=== PATIENT | female | born 1985 | race Caucasian/White ===

== ENCOUNTER 2017-04-21 13:57 | Emergency (ER) | payer OTHER ==
[2017-04-21 14:49] VITALS: BP 104/66
--- NOTE | 2017-04-21 14:59 | UC ---
Complaint Female HPI - HPI Summary HPI Summary: 32 female presents with complaints of urinary burning frequency and urgency that has been going on for the past week. States she took some OTC Azo yesterday which did give her some relief until it wore off. Patient denies having any blood in her urine. Denies vaginal symptoms/discharge. Denies known fever/chills. Also complains of lower abdominal pain and kidney/back pain. Was told by her PCP to be seen and have urine checked to obtain medication. Denies known PMHx. Has also been taking hydrocodone that she states is for her chronic back pain that gives her some relief. Admits to nausea/vomiting one week ago however she has episode of these chronically. No episodes within the last 2 days and has been eating and drinking. - History Of Current Complaint Chief Complaint: UCGU Stated Complaint: URINARY COMPLAINT Time Seen by Provider: 04/21/17 14:55 Hx Obtained From: Patient Hx Last Menstrual Period: 03/30/17 ?: No Onset/Duration: Sudden Onset, Lasting Weeks - 1, Still Present, Worse Since Timing: Constant Severity Initially: Mild Severity Currently: Moderate Pain Intensity: 1 Pain Scale Used: 0-10 Numeric Character: Burning Aggravating Factor(s): Urination Alleviating Factor(s): Meds - azo Associated Signs And Symptoms: Positive: Back Pain. Negative: Fever, Vaginal Bleeding/Discharge, Vaginal Discharge - Allergies/Home Medications Allergies/Adverse Reactions: Allergies Allergy/AdvReac Type Severity Reaction Status Date / Time Lorazepam AdvReac Intermediate See Comment Verified 04/21/17 14:49 Amoxicillin AdvReac See Comment Verified 04/21/17 14:49 Escitalopram [From Lexapro] AdvReac See Comment Verified 04/21/17 14:49 PMH/Surg Hx/FS Hx/Imm Hx - Additional Past Medical History Additional PMH: denies diabetes, htn and asthma. no pmhx. Other History Of: Negative For: HIV, Hepatitis B, Hepatitis C - Surgical History Surgical History: Yes Surgery Procedure, Year, and Place: bx heart age 14 - Family History Known Family History: Positive: None - Social History Alcohol Use: Occasionally Alcohol Amount: RECOVERING ALCOHOLIC Substance Use Type: None, Marijuana Substance Use Comment - Amount & Last Used: RECOVERING DRUG USER- uses pot several times per week Smoking Status (MU): Heavy Every Day Tobacco Smoker Type: Cigarettes Amount Used/How Often: 1 PPD Length of Time of Smoking/Using Tobacco: started at age 17 Have You Smoked in the Last Year: Yes Household Exposure Type: Cigarettes Review of Systems Constitutional: Negative Skin: Negative Respiratory: Negative Cardiovascular: Negative Gastrointestinal: Abdominal Pain, Vomiting - resolved, Nausea - chronic Genitourinary: Dysuria, Frequency, Urgency, Other - back pain Neurovascular: Negative Musculoskeletal: Negative All Other Systems Reviewed And Are Negative: Yes Physical Exam Triage Information Reviewed: Yes Appearance: Well-Appearing, No Pain Distress, Well-Nourished Vital Signs: Initial Vital Signs Temp 98 F 04/21/17 14:40 Pulse 79 04/21/17 14:40 Resp 14 04/21/17 14:40 BP 104/66 04/21/17 14:40 Pulse Ox 98 04/21/17 14:40 normal vitals, afebrile Vital Signs Reviewed: Yes Eyes: Positive: Conjunctiva Clear Neck: Positive: Supple, Nontender, No Lymphadenopathy Respiratory: Positive: Chest non-tender, Lungs clear, Normal breath sounds, No respiratory distress, No accessory muscle use. Negative: Crackles, Stridor, Wheezing Cardiovascular: Positive: RRR, No Murmur, Pulses Normal Abdomen Description: Positive: No Organomegaly, Soft, CVA Tenderness (R), CVA Tenderness (L), Other: - mild tenderness over suprapubic area/bladder with palpation. Negative: Bruit, Distended, Guarding, Peritoneal Signs, Pulsatile Mass Bowel Sounds: Positive: Present Musculoskeletal: Positive: Strength Intact, ROM Intact, No Edema Neurological Exam: Normal Neurological: Positive: Alert Psychological Exam: Normal Skin Exam: Normal Complaint Female Dx - Course Course Of Treatment: due to patients complaint of symptoms, length of symptoms, urinalysis results and vital signs will be given cipro for 7 days incase of possible pyelonephritis/ complicated uti. urine will be culture, pending results may change antibiotic if needed. no concern for , STDs or other gu etiologies. Educated for a long period of time on worsening symptoms and if no improvement go to ER for further work up and treatment. Given pyridium for discomfort. Follow up PCP. Fluids and rest. - Differential Dx/Diagnosis Differential Diagnosis/HQI/PQRI: Urinary Tract Infection, Other - pyelonephritis Provider Diagnoses: urinary tract infection Discharge - Discharge Plan Condition: Stable Disposition: HOME Prescriptions: Ciprofloxacin TAB* [Cipro 500 MG TAB*] 500 mg PO BID #14 tab Phenazopyridine TAB* [Pyridium 100 mg TAB*] 100 mg PO TID #6 tab Patient Education Materials: Urinary Tract Infection in Women (ED) Referrals: Morro MICHAUD,Ellis Andrew [Primary Care Provider] - Additional Instructions: Take prescribed medications as directed. Drink plenty of fluids and get plenty of rest. Tylenol/Ibuprofen for pain and discomfort. Keep good hygiene. Follow up with PCP. If symptoms worsen (fever, chills, generalized feeling of illness, vomiting, worsening pain, and no improvement of symptoms) please go to ER immediately.
== END 2017-04-21 15:23 | disposition home or self-care (01) ==
LOC: UCCORT 13:57
DX: N39.0 Urinary tract infection, site not specified (principal); Z88.1 Allergy status to other antibiotic agents; F12.90 Cannabis use, unspecified, uncomplicated; F17.210 Nicotine dependence, cigarettes, uncomplicated
CPT/HCPCS: 81003; 87077; 87086; 87186; 99212; G0463

== ENCOUNTER 2017-04-25 14:51 | Emergency (ER) | payer OTHER ==
[2017-04-25 15:04] VITALS: BP 113/60
--- NOTE | 2017-04-25 15:13 | UC ---
Complaint Female HPI - HPI Summary HPI Summary: Seen here 04/21/17 for UTI, continues to have urinary pain and back pain. She has been taking cipro, which cx show sensitivity to. Note reviewed which states to go to ER if sx increase/worsen. UTI sx are much improved , but LBP has not resolved. She reports that there was concern about pylonephritis and possible need for admission, but went home with cipro. Back was very tender with exam she reports. Denies fevers and chills. no hematuria. Denies . She is here with her Kary - History Of Current Complaint Chief Complaint: UCGU Stated Complaint: BACK/SIDE PAIN Time Seen by Provider: 04/25/17 14:58 Hx Last Menstrual Period: 03/30/17 - Allergies/Home Medications Allergies/Adverse Reactions: Allergies Allergy/AdvReac Type Severity Reaction Status Date / Time Lorazepam AdvReac Intermediate See Comment Verified 04/25/17 15:02 Amoxicillin AdvReac See Comment Verified 04/25/17 15:02 Escitalopram [From Lexapro] AdvReac See Comment Verified 04/25/17 15:02 PMH/Surg Hx/FS Hx/Imm Hx Previously Healthy: Yes Other History Of: Negative For: HIV, Hepatitis B, Hepatitis C - Surgical History Surgical History: Yes Surgery Procedure, Year, and Place: bx heart age 14 - Family History Known Family History: Positive: None, Cardiac Disease - Dad and PGF - Social History Alcohol Use: Occasionally Alcohol Amount: RECOVERING ALCOHOLIC Substance Use Type: None, Marijuana Substance Use Comment - Amount & Last Used: RECOVERING DRUG USER- uses pot several times per week Smoking Status (MU): Heavy Every Day Tobacco Smoker Type: Cigarettes Amount Used/How Often: 1 PPD Length of Time of Smoking/Using Tobacco: started at age 17 Have You Smoked in the Last Year: Yes Household Exposure Type: Cigarettes Review of Systems Constitutional: Negative Skin: Negative Eyes: Negative ENT: Negative Respiratory: Negative Cardiovascular: Negative Gastrointestinal: Negative Genitourinary: Dysuria Motor: Negative Neurovascular: Negative Musculoskeletal: Negative Neurological: Negative Psychological: Negative All Other Systems Reviewed And Are Negative: Yes Physical Exam Triage Information Reviewed: Yes Appearance: Ill-Appearing - mild ill. Vital Signs: Initial Vital Signs Temp 97.2 F 04/25/17 14:59 Pulse 89 04/25/17 14:59 Resp 18 04/25/17 14:59 BP 113/60 04/25/17 14:59 Pulse Ox 99 04/25/17 14:59 Vital Signs Reviewed: Yes Eye Exam: Normal ENT Exam: Normal Neck exam: Normal Neck: Positive: Supple, Nontender, No Lymphadenopathy Respiratory Exam: Normal Respiratory: Positive: Lungs clear, Normal breath sounds, No respiratory distress, No accessory muscle use Cardiovascular Exam: Normal Cardiovascular: Positive: RRR, No Murmur, Pulses Normal, Brisk Capillary Refill Abdomen Description: Positive: Nontender, No Organomegaly, Soft, CVA Tenderness (R), CVA Tenderness (L). Negative: Distended, Guarding, McBurney's Point Tenderness, Peritoneal Signs Bowel Sounds: Positive: Present Musculoskeletal Exam: Normal Neurological Exam: Normal Psychological Exam: Normal Skin Exam: Normal Complaint Female Dx - Course Course Of Treatment: pt on day 4 of cipro for UTI (+ sensitivity) with persistant b/l low back pain. chronic LBP for which she takes a controlled substance. Advised needs imaging, CT, that is NA and labwork that cannot be done in timely fashion here. ER evaluation is recommended. She and her Kary are agreeable with ER. She prefers to go to [place] [facility] by private car and declines ambulance understanding risks of MVA and worsening condition by declining. - Differential Dx/Diagnosis Differential Diagnosis/HQI/PQRI: Ovarian Cyst, Pelvic Inflammatory Disease, Renal Colic, Urinary Tract Infection Provider Diagnoses: complicated UTI - Physician Notifications Discussed Patient Care With: Servando Chavira, MERCED Orr. Discharge - Discharge Plan Condition: Fair Disposition: AGAINST MEDICAL ADVICE Referrals: Morro MICHAUD,Ellis Andrew [Primary Care Provider] - 1 Day
== END 2017-04-25 15:30 | disposition left against medical advice (07) ==
LOC: UCCORT 14:51
DX: N39.0 Urinary tract infection, site not specified (principal); F17.210 Nicotine dependence, cigarettes, uncomplicated; Z88.0 Allergy status to penicillin
CPT/HCPCS: 81003; 99212; G0463

== ENCOUNTER → 2017-04-27 06:53 | Emergency (ER) | payer OTHER ==
[~2017-04-27 06:53] MED LIST: Ketorolac INJ* 30 MG/ML 1 ML VIAL IM ONE
[2017-04-27 09:12] LABS: Hematocrit 40 % (35-47); Hemoglobin 14.2 g/dl (12.0-16.0); Mean Corpuscular HGB Conc 35 g/dl (31-36); Mean Corpuscular Hemoglobin 33 pg (27-31); Mean Corpuscular Volume 93 fL (80-97); Mean Platelet Volume 8 um3 (7.4-10.4); Red Blood Count 4.34 10^6/ul (4.0-5.4); Red Cell Distribution Width 13 % (10.5-15); White Blood Count 8.2 10^3/ul (3.5-10.8)
[2017-04-27 09:27] LABS: Urine Bilirubin 1+ (Negative); Urine Glucose Negative (Negative); Urine Nitrite Negative (Negative)
[2017-04-27 09:30] LABS: Albumin 4.2 g/dL (3.2-5.2); BUN/Creatinine Ratio 10.8 (8-20); C Reactive Protein 3.96 mg/L (< 5.00); Calcium 9.4 mg/dL (8.6-10.3); EGFR African American 137.6 (>60); Globulin 3.4 g/dL (2-4); Potassium 3.4 mmol/L (3.5-5.0); Total Bilirubin 0.4 mg/dL (0.2-1.0); Total Protein 7.6 g/dL (6.4-8.9)
[2017-04-27 10:27] LABS: Benzodiazepine Urine Screen Presumptive Positive (None Detect)
--- NOTE | 2017-04-27 12:08 | RAD ---
HISTORY: Flank pain COMPARISONS: MRI dated May 18, 2012 TECHNIQUE: Multiple contiguous axial CT scans were obtained of the lumbar spine without intravenous contrast, with coronal and sagittal multiplanar reformations. FINDINGS: SPINAL CANAL: Evaluation of the central canal is limited on CT technique; however, there is no obvious canalicular mass or epidural hemorrhage. ALIGNMENT: The alignment is normal. VERTEBRAL BODIES: The vertebral bodies are preserved in height. The bones are normal in attenuation. JOINTS: Unremarkable. There is no subluxation or dislocation. MUSCULATURE: Unremarkable INTERVERTEBRAL DISCS: There is mild diffuse loss of intervertebral disc height throughout the spine. AXIAL IMAGES: T12-L1: There is no osseous neural foraminal narrowing or central canal stenosis. L1-L2: There is no osseous neural foraminal narrowing or central canal stenosis. L2-L3: There is no osseous neural foraminal narrowing or central canal stenosis. L3-L4: There is no osseous neural foraminal narrowing or central canal stenosis. L4-L5: There is no osseous neural foraminal narrowing or central canal stenosis. L5-S1: There is no osseous neural foraminal narrowing or central canal stenosis. SOFT TISSUES: The visualized soft tissues of the abdomen are unremarkable. OTHER: None IMPRESSION: MILD DEGENERATIVE DISC DISEASE. NO SIGNIFICANT OSSEOUS NEURAL FORAMINAL NARROWING OR CENTRAL CANAL STENOSIS.
--- NOTE | 2017-04-27 12:23 | RAD ---
INDICATION: Abdominal pain COMPARISON: MRI lumbar spine May 18, 2012 TECHNIQUE: Noncontrast axial source images were acquired from the level hemidiaphragms to the symphysis pubis as part of CT imaging for renal stone. Lung bases: There is mild pleural reactive change in left lung base most consistent with minimal scarring. Liver: The liver is generous in size size. Noncontrast imaging shows no evidence of a hepatic mass or ductal dilatation. Gallbladder: There are no calcified gallstones. There is no evidence of wall thickening or pericholecystic fluid.. Spleen: The spleen is normal in size. The noncontrast CT appearance is normal. Pancreas: Noncontrast imaging shows no pancreatic mass or ductal dilitation. Adrenal glands: No masses are identified. Kidneys/Bladder: There is no evidence of nephrolithiasis or CT evidence of hydronephrosis. Noncontrast imaging shows no evidence of a renal mass. The bladder is unremarkable.. Adenopathy: There is no evidence of intraperitoneal or retroperitoneal adenopathy. Evaluation is limited without oral contrast. Fluid collections: There is a small amount of free fluid in the dependent portion of the pelvis. Vessels: The aorta and iliac vessels are normal in caliber. There are no significant atherosclerotic changes. The IVC appears normal Pelvic organs: The uterus and adnexa appear normal GI tract: Evaluation of the bowel is limited without oral contrast. The stomach and small bowel appear normal. There is moderate retained stool throughout the colon. There are scattered diverticula of the sigmoid colon. There is no CT evidence of acute diverticulitis. The ileocecal valve and appendix appear normal. Soft tissues: No soft tissue abnormalities of the extraperitoneal abdomen or pelvis are identified. Osseous structures: There are no acute osseous findings. There is degenerative disc disease about L1-L2. There are endplate irregularities at the thoracolumbar junction. Please refer to separate CT lumbar report IMPRESSION: 1. No CT evidence of urolithiasis. No mass or inflammatory change. 2. Scattered diverticula without CT evidence of acute diverticulitis. Moderate retained stool. 3. Scant free fluid in the dependent portion of the pelvis, likely physiologic free fluid
[2017-04-27 13:23] VITALS: BP 109/57
--- NOTE | 2017-04-27 15:19 | ED ---
Poli Flores Thomas, scribed for Cody Carbajal MD on 04/27/17 at 0719 . Abdominal Pain/Female - HPI Summary HPI Summary: Pt is a 32 y/o F presenting to the ED c/o flank pain. She rates her pain 9/10 in intensity. Additionally c/o syncope with LOC, seizure-like activity (per her friend) during which her friend says that she stopped breathing. The pt states that it hurts to move. Six days ago, the pt was diagnosed with a UTI and possible kidney infection at an Urgent Care, where she was given Ciprofloxacin for 7 days and 2 days of Pyridium. Currently she has flank pain and went back to the urgent care yesterday, where an US and UA were performed with no findings of UTI or kidney infection. The urgent care diagnosed the pt with muscle spasms. The pt claims that her pain is not consistent with prior episodes of muscle spasms. . The pt is accompanied by a friend. - History of Current Complaint Chief Complaint: EDFlankPain Stated Complaint: ABD/FLANK PAIN Hx Obtained From: Patient, Other: - friend Hx Last Menstrual Period: 03/30/17 Onset/Duration: Lasting Days - diagnosed with UTI 6 days ago; has since received abx and still has pain Severity Currently: Severe Pain Intensity: 9 Pain Scale Used: 0-10 Numeric Location: Flank - L Aggravating Factor(s): Movement Alleviating Factor(s): Nothing Associated Signs and Symptoms: Positive: Other: - POS: syncope with LOC, "seizure-like activity" (per friend), cessation of breathing (per friend) Allergies/Adverse Reactions: Allergies Allergy/AdvReac Type Severity Reaction Status Date / Time Lorazepam AdvReac Intermediate See Comment Verified 04/25/17 15:02 Amoxicillin AdvReac See Comment Verified 04/25/17 15:02 Escitalopram [From Lexapro] AdvReac See Comment Verified 04/25/17 15:02 PMH/Surg Hx/FS Hx/Imm Hx Previously Healthy: No Endocrine/Hematology History: Denies: Hx Diabetes, Hx Thyroid Disease Cardiovascular History: Denies: Hx Congestive Heart Failure, Hx Deep Vein Thrombosis, Hx Hypertension , Hx Myocardial Infarction, Hx Pacemaker/ICD Respiratory History: Reports: Hx Asthma Denies: Hx Chronic Obstructive Pulmonary Disease (COPD), Hx Lung Cancer, Hx Pneumonia, Hx Pulmonary Embolism GI History: Reports: Hx Ulcer - She used to be on omeprazole years ago. Denies: Hx Gall Bladder Disease, Hx Gastrointestinal Bleed, Hx Urosepsis History: Denies: Hx Kidney Stones, Hx Renal Disease Neurological History: Reports: Hx Seizures - Last seizure, "years ago." Stress- induced seizures. Denies: Hx Dementia, Hx Migraine, Hx Transient Ischemic Attacks (TIA) Psychiatric History: Reports: Hx Anxiety, Hx Schizophrenia Denies: Hx Depression, Hx Bipolar Disorder - Surgical History Surgery Procedure, Year, and Place: bx heart age 14 Infectious Disease History: Denies: Traveled Outside the [place] in Last 30 Days - Family History Known Family History: Positive: Cardiac Disease - Dad and PGF - Social History Alcohol Use: Occasionally Alcohol Amount: RECOVERING ALCOHOLIC Substance Use Type: Reports: None, Marijuana Substance Use Comment - Amount & Last Used: RECOVERING DRUG USER- uses pot several times per week Smoking Status (MU): Heavy Every Day Tobacco Smoker Type: Cigarettes Amount Used/How Often: 1 PPD Length of Time of Smoking/Using Tobacco: started at age 17 Have You Smoked in the Last Year: Yes Review of Systems Constitutional: Negative Eyes: Negative ENT: Negative Cardiovascular: Negative Respiratory: Negative Gastrointestinal: Negative Positive: flank pain Skin: Negative Neurological: Other - POS: "seizure-like activity, in which she stops breathing " (per friend) Positive: Syncope - with LOC Psychological: Normal All Other Systems Reviewed And Are Negative: Yes Physical Exam Triage Information Reviewed: Yes Vital Signs On Initial Exam: Initial Vitals Temp Pulse Resp BP Pulse Ox 97.4 F 80 18 118/69 97 04/27/17 06:56 04/27/17 06:56 04/27/17 06:56 04/27/17 06:56 04/27/17 06:56 Vital Signs Reviewed: Yes Appearance: Positive: Well-Appearing - non-toxic in apperance, No Pain Distress Skin: Positive: Warm, Skin Color Reflects Adequate Perfusion, Dry Head/Face: Positive: Normal Head/Face Inspection Eyes: Positive: Normal ENT: Positive: Normal ENT inspection Neck: Positive: Supple, Nontender Respiratory/Lung Sounds: Positive: Clear to Auscultation, Breath Sounds Present Cardiovascular: Positive: RRR Abdomen Description: Positive: Soft, Other: - Tender to light touch of back Bowel Sounds: Positive: Present Musculoskeletal: Positive: Normal, Other - negative SLR Neurological: Positive: Normal, Sensory/Motor Intact, Alert, Oriented to Person Place, Time, CN Intact II-III Psychiatric: Positive: Normal, Affect/Mood Appropriate Diagnostics - Vital Signs Vital Signs Temp Pulse Resp BP Pulse Ox 04/27/17 07:03 97.3 F 80 20 118/69 98 04/27/17 06:56 97.4 F 80 18 118/69 97 - Laboratory Lab Results: Lab Results 04/27/17 04/27/17 04/27/17 Range/Units 09:00 09:00 09:00 WBC 8.2 (3.5-10.8) 10^3/ul RBC 4.34 (4.0-5.4) 10^6/ul Hgb 14.2 (12.0-16.0) g/dl Hct 40 (35-47) % MCV 93 (80-97) fL MCH 33 H (27-31) pg MCHC 35 (31-36) g/dl RDW 13 (10.5-15) % Plt Count 213 (150-450) 10^3/ul MPV 8 (7.4-10.4) um3 Neut % (Auto) 47.3 (38-83) % Lymph % (Auto) 43.0 (25-47) % [place] % (Auto) 7.9 (1-9) % Eos % (Auto) 1.1 (0-6) % Baso % (Auto) 0.7 (0-2) % Absolute Neuts (auto) 3.9 (1.5-7.7) 10^3/ul Absolute Lymphs (auto) 3.5 (1.0-4.8) 10^3/ul Absolute Monos (auto) 0.6 (0-0.8) 10^3/ul Absolute Eos (auto) 0.1 (0-0.6) 10^3/ul Absolute Basos (auto) 0.1 (0-0.2) 10^3/ul Absolute Nucleated RBC 0 10^3/ul Nucleated RBC % 0 Sodium 135 (133-145) mmol/L Potassium 3.4 L (3.5-5.0) mmol/L Chloride 105 (101-111) mmol/L Carbon Dioxide 26 (22-32) mmol/L Anion Gap 4 (2-11) mmol/L BUN 7 (6-24) mg/dL Creatinine 0.65 (0.51-0.95) mg/dL Est GFR ( Amer) 137.6 (>60) Est GFR (Non-Af Amer) 107.0 (>60) BUN/Creatinine Ratio 10.8 (8-20) Glucose 88 (70-100) mg/dL Calcium 9.4 (8.6-10.3) mg/dL Total Bilirubin 0.40 (0.2-1.0) mg/dL AST 13 (13-39) U/L ALT 7 (7-52) U/L Alkaline Phosphatase 58 (34-104) U/L C-Reactive Protein 3.96 (< 5.00) mg/L Total Protein 7.6 (6.4-8.9) g/dL Albumin 4.2 (3.2-5.2) g/dL Globulin 3.4 (2-4) g/dL Albumin/Globulin Ratio 1.2 (1-3) Urine Color Yellow Urine Appearance Clear Urine pH 6.0 (5-9) Ur Specific [place] 1.019 (1.010-1.030) Urine Protein Negative (Negative) Urine Ketones Trace H (Negative) Urine Blood Negative (Negative) Urine Nitrate Negative (Negative) Urine Bilirubin 1+ H (Negative) Urine Urobilinogen Negative (Negative) Ur Leukocyte Esterase Negative (Negative) Urine Glucose Negative (Negative) Urine Ascorbic Acid * H (Negative) Urine Opiates Screen (None Detect) Ur Barbiturates Screen (None Detect) Ur Phencyclidine Scrn (None Detect) Ur Amphetamines Screen (None Detect) U Benzodiazepines Scrn (None Detect) Urine Cocaine Screen (None Detect) U Cannabinoids Screen (None Detect) 04/27/17 Range/Units 09:00 WBC (3.5-10.8) 10^3/ul RBC (4.0-5.4) 10^6/ul Hgb (12.0-16.0) g/dl Hct (35-47) % MCV (80-97) fL MCH (27-31) pg MCHC (31-36) g/dl RDW (10.5-15) % Plt Count (150-450) 10^3/ul MPV (7.4-10.4) um3 Neut % (Auto) (38-83) % Lymph % (Auto) (25-47) % [place] % (Auto) (1-9) % Eos % (Auto) (0-6) % Baso % (Auto) (0-2) % Absolute Neuts (auto) (1.5-7.7) 10^3/ul Absolute Lymphs (auto) (1.0-4.8) 10^3/ul Absolute Monos (auto) (0-0.8) 10^3/ul Absolute Eos (auto) (0-0.6) 10^3/ul Absolute Basos (auto) (0-0.2) 10^3/ul Absolute Nucleated RBC 10^3/ul Nucleated RBC % Sodium (133-145) mmol/L Potassium (3.5-5.0) mmol/L Chloride (101-111) mmol/L Carbon Dioxide (22-32) mmol/L Anion Gap (2-11) mmol/L BUN (6-24) mg/dL Creatinine (0.51-0.95) mg/dL Est GFR ( Amer) (>60) Est GFR (Non-Af Amer) (>60) BUN/Creatinine Ratio (8-20) Glucose (70-100) mg/dL Calcium (8.6-10.3) mg/dL Total Bilirubin (0.2-1.0) mg/dL AST (13-39) U/L ALT (7-52) U/L Alkaline Phosphatase (34-104) U/L C-Reactive Protein (< 5.00) mg/L Total Protein (6.4-8.9) g/dL Albumin (3.2-5.2) g/dL Globulin (2-4) g/dL Albumin/Globulin Ratio (1-3) Urine Color Urine Appearance Urine pH (5-9) Ur Specific [place] (1.010-1.030) Urine Protein (Negative) Urine Ketones (Negative) Urine Blood (Negative) Urine Nitrate (Negative) Urine Bilirubin (Negative) Urine Urobilinogen (Negative) Ur Leukocyte Esterase (Negative) Urine Glucose (Negative) Urine Ascorbic Acid (Negative) Urine Opiates Screen Presumptive positive H (None Detect) Ur Barbiturates Screen None detected (None Detect) Ur Phencyclidine Scrn None detected (None Detect) Ur Amphetamines Screen None detected (None Detect) U Benzodiazepines Scrn Presumptive positive H (None Detect) Urine Cocaine Screen None detected (None Detect) U Cannabinoids Screen Presumptive positive H (None Detect) Result Diagrams: 04/27/17 09:00 04/27/17 09:00 Lab Statement: Any lab studies that have been ordered have been reviewed, and results considered in the medical decision making process. - CT CT L-Spine CT Interpretation: No Acute Changes - MILD DEGENERATIVE DISC DISEASE. NO SIGNIFICANT OSSEOUS NEURAL FORAMINAL NARROWING OR CENTRAL CANAL STENOSIS. CT Interpretation Completed By: Radiologist CT Abd/Pel CT Interpretation: No Acute Changes - 1. No CT evidence of urolithiasis. No mass or inflammatory change. 2. Scattered diverticula without CT evidence of acute diverticulitis. Moderate retained stool. 3. Scant free fluid in the dependent portion of the pelvis, likely physiologic free fluid CT Interpretation Completed By: Radiologist Abdominal Pain Fem Course/Dx - Course Course Of Treatment: Ms. Kitchen has had several visits to different places for back pain in the last few days. She initially was thought to have pyelonephritis and grew e-coli out of her urine but that has been treated and is now gone. She had a negative U/S of her kidneys at [place] [facility] yesterday. On my initial exam she jumps and screams to the lightest possible touch of her gown over her paralumbar area. Labs and CT were negative and ketorolac did not help much. She is on 120 7.5 Whitman tabs a month for unknown reasons and sincee these are not helping the pain, it seems likely that it is not opiate responsive. I considered treating her for a neuropathic pain but she left abruptly before I had a chance to talk to her. - Diagnoses Provider Diagnoses: Back pain Discharge - Discharge Plan Condition: Stable Disposition: OTHER Discharge Disposition Comment: Left abruptly without discharge. The documentation as recorded by the Poli altamirano Thomas accurately reflects the service I personally performed and the decisions made by me, Cody Carbajal MD.
== END ==
LOC: ED 06:53
DX: M54.9 Dorsalgia, unspecified (principal); R55 Syncope and collapse; R10.84 Generalized abdominal pain; F17.210 Nicotine dependence, cigarettes, uncomplicated
CPT/HCPCS: 36415; 72131; 74176; 80053; 80307; 81003; 85025; 86140; 96372; 99282; J1885

== ENCOUNTER 2017-06-24 07:08 | Emergency (ER) | payer OTHER ==
[2017-06-24 07:26] VITALS: BP 111/57
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
== END 2017-06-24 07:50 | disposition home or self-care (01) ==
LOC: UCCORT 07:08
DX: B34.9 Viral infection, unspecified (principal); M79.1 Myalgia; F50.2 Bulimia nervosa; Z88.1 Allergy status to other antibiotic agents; Z88.0 Allergy status to penicillin; F17.210 Nicotine dependence, cigarettes, uncomplicated
CPT/HCPCS: 99212; G0463

== ENCOUNTER 2018-03-07 19:59 | Emergency (ER) | payer OTHER ==
[2018-03-07 20:18] VITALS: BP 111/60
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
== END 2018-03-07 21:37 | disposition home or self-care (01) ==
LOC: UCCORT 19:59
DX: S80.12XA Contusion of left lower leg, initial encounter (principal); W22.8XXA Striking against or struck by other objects, initial encounter; F17.210 Nicotine dependence, cigarettes, uncomplicated; Y92.9 Unspecified place or not applicable; Z88.3 Allergy status to other anti-infective agents; Z88.8 Allergy status to other drugs, medicaments and biological substances
CPT/HCPCS: 99211; G0463

== ENCOUNTER 2018-04-12 16:11 | Emergency (ER) | payer OTHER ==
[2018-04-12 16:44] VITALS: BP 110/57
[2018-04-12] MEDS ORDERED: Ibuprofen TAB* 600 MG PO ONE (17:20)
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
--- NOTE | 2018-04-12 17:59 | RAD ---
INDICATION: Chest pain. COMPARISON: Comparison is made with a prior study from April 20, 2014. TECHNIQUE: Dual-energy PA and lateral views of the chest were obtained. FINDINGS: The heart is within normal limits in size. Mediastinal and hilar contours appear within normal limits. The lungs are clear. No pleural effusion or pneumothorax is seen. IMPRESSION: NO EVIDENCE FOR ACTIVE CARDIOPULMONARY DISEASE.
--- NOTE | 2018-04-12 18:07 | RAD ---
INDICATION: Head injury. COMPARISON: Comparison is made with a prior CT of the brain from June 09, 2011. TECHNIQUE: Contiguous axial sections of the brain were obtained from the skull base to the vertex without contrast. FINDINGS: The ventricles, cisterns and sulci are within normal limits. No significant focal abnormality or mass effect is seen. There is no evidence for hemorrhage. No significant focal osseous abnormality is seen. The visualized portion of the paranasal sinuses and mastoid air cells appear clear. IMPRESSION: NO EVIDENCE FOR ACUTE INTRACRANIAL ABNORMALITY.
== END 2018-04-12 18:34 | disposition home or self-care (01) ==
LOC: UCCORT 16:11
DX: S09.90XA Unspecified injury of head, initial encounter (principal); S20.219A Contusion of unspecified front wall of thorax, initial encounter; S80.12XA Contusion of left lower leg, initial encounter; Z88.0 Allergy status to penicillin; Z88.8 Allergy status to other drugs, medicaments and biological substances; F17.210 Nicotine dependence, cigarettes, uncomplicated; V23.4XXA Motorcycle driver injured in collision with car, pick-up truck or van in traffic accident, initial encounter; Y92.9 Unspecified place or not applicable
CPT/HCPCS: 70450; 71046; 99212; A9270-GY; G0463

== ENCOUNTER 2018-06-17 14:55 | Emergency (ER) | payer OTHER ==
[2018-06-17] MEDS ORDERED: NS 0.9% 1000 ML* 1,000 ML IV ONE (15:18)
[2018-06-17] MEDS ORDERED: methylPREDNISolone 125 MG* 2 ML VIAL IV ONE (15:18)
--- OUTSIDE RECORDS SUMMARY | 2018-06-17 15:18 | XMS REPORT ---
:1985 External Reference #:[id number] Author Organization [facility] Address [address] [place] [address] [place] [address] Phone [phone] Care Team Providers Name Role Phone Jeny Hawley PA Primary Care Physician Unavailable Payers Type Date Identification Numbers Payment Provider Subscriber Commercial Policy Number: [id number] Mauricio Kitchen PayID: [id number] [address] [place] [id number] Problems Date Description Provider Status Onset: 02/07/2018 Asthma without status asthmaticus Jeny Hawley PA Active Onset: 02/07/2018 Migraine with typical aura Jeny Hawley PA Active Onset: 02/07/2018 Adjustment disorder with mixed Jeny Hawley PA Active emotional features Onset: 06/15/2018 Chronic fatigue syndrome Antonio Frias M.D. Active Onset: 06/15/2018 Transient altered mental status Antonio Frias M.D. Active Onset: 06/15/2018 Dizziness and giddiness Antonio Frias M.D. Active Onset: 06/15/2018 Amnesia Antonio Frias M.D. Active Family History Date Family Member(s) Problem(s) Comments General Alcoholism General Drug Addiction General Migraine General Cancer General Heart Disease Father Unknown Mother Migraine First Sister Migraine Social History Type Date Description Comments Marital Status Significant Other Lives With Grandmother Occupation Disabled Cigarette Use currently smokes 1/2 Pack Daily ETOH Use Denies alcohol use Smoking Light tobacco smoker (10 or fewer cigarettes/day) Recreational Drug Use Formerly used Marijuana regularly Daily Caffeine Consumes on average 1 cup of regular coffee per day Exercise Type/Frequency Exercises regularly Allergies, Adverse Reactions, Alerts Date Description Reaction Status Severity Comments 02/07/2018 Onion active 04/01/2018 Amoxicillin active 02/07/2018 Dust active 04/01/2018 Lexapro active 04/01/2018 Lorazepam active Medications Medication Date Status Form Strength Qnty SIG Indications Ordering Provider Ventolin HFA Active Aerosol 108(90Base 18unit 2 puffs J45.909 Sabrina, 2018 ) mcg/Act s every 4 MD Eloise hours as needed for cough and wheeze Alprazolam / Active Tablets 1mg 1 tab in Unknown 0000 am and 1/2 tab in pm Hydromorphone / Active Tablets 2mg as Unknown HCL 0000 needed Meloxicam / Active Tablets 7.5mg take one Unknown 0000 tab daily as needed MDD 1 Ondansetron HCL / Active Tablets 8mg 1 by Unknown 0000 mouth every 6 hours Ibuprofen / Active Tablets 600mg as Unknown 0000 needed Albuterol / Active Nebulizer 1.25mg/3ML 1 vial Unknown Sulfate 0000 every 4 hours as needed Gabapentin / Active Capsules 300mg 1 cap by Unknown 0000 mouth three times daily Abilify / Active Tablets 5mg take 1 Unknown 0000 tablet by mouth daily Clonidine HCL / Active Tablets 0.1mg take 1/2 Unknown 0000 tablet by mouth twice a day Dok / Active Capsules 100mg 1 cap by Unknown 0000 mouth daily Risperidone / Hx Tablets 2mg 1 tab by Unknown 0000 - mouth 2017 Nicoderm CQ / Hx Patches 21mg/24HR apply Unknown 0000 - 24HR daily 2017 Vital Signs Date Vital Result Comment 06/15/2018 Height 68 inches 5'8" Weight 151.25 lb Heart Rate 92 /min BP Systolic Sitting 116 mmHg BP Diastolic Sitting 64 mmHg Respiratory Rate 18 /min O2 % BldC Oximetry 98 % BMI (Body Mass Index) 23.0 kg/m2 Results Description No Information Procedures Description No Information Encounters Type Date Location Provider CPT E/M Dx Office Visit 06/15/2018 Christina Frias M.D. [id number] R41.3 11:15a [facility] R42 R40.4 R53.82 Plan of Care Future Appointment(s):08/31/2018 1:45 pm - Antonio Frias M.D. at [facility]06/15/2018 - Antonio Frias M.D.R41.3 Other amnesiaNew Labs:CBC Auto DiffComp Metabolic PanelVitamin B12 And Folate SerumNuclear AB (Kati) By Ifa IggNew Xrays:MRI Brain W/OFollow up:Follow up in 6 weeks Request records from [id number] Dizziness and [id number] Transient alteration of awarenessNew Orders:EEG, PhmmkboA17.82 Chronic fatigue, unspecifiedNew Labs:TSH (Thyroid Stim Horm)Free T4 (Free Thyroxine)
[2018-06-17] MEDS ORDERED: Famotidine IV* 10 MG/ML 2 ML (20 mg) IV SLOW PU ONE (15:20)
--- NOTE | 2018-06-17 15:36 | UC ---
Allergic Reaction HPI - HPI Summary HPI Summary: Patient's complete evaluation treatment happened in the parking lot. Code cart was brought to the patient's car where she was a passenger. Patient's boyfriend urgent care stating that her was having an allergic reaction to onions. Patient states they were eating [employer] in the car. Patient states she is allergic to onions. Patient states she tasted any in her mouth and spit it out. Patient states she started to feel tingling and lightheaded. Patient states she did feel slightly short of breath. Patient's total 100 mg of Benadryl that she keeps in the car "just in case." Patient's 's reports patient's visit on coming here. Patient reported to have 2 brief loss of consciousness en route here. Patient without any hives. Patient denies trouble swallowing. She denies any pain. Patient reports she has been nauseous. No hives. No itching. Patient states she does feel little bit lightheaded. Patient's medications reviewed which include clonidine. Patient takes 0.5 mg twice a day orally. Patient on this because she is being weaned from benzodiazepene Pt's medications discussed this visit - History of Current Complaint Stated Complaint: ALLERGIC REACTION Time Seen by Provider: 06/17/18 15:14 Hx Obtained From: Patient, Family/Dog Obedience Instructor Hx Last Menstrual Period: 03/17/18 ?: No Onset/Duration: Sudden Onset Severity Initially: Mild Severity Currently: Mild Pain Scale Used: 0-10 Numeric - no pain, tingling in mouth - Allergies/Home Medications Allergies/Adverse Reactions: Allergies Allergy/AdvReac Type Severity Reaction Status Date / Time lorazepam Allergy Intermediate Palpitation Verified 06/17/18 15:42 s amoxicillin Allergy See Comment Verified 06/17/18 15:42 escitalopram [From Lexapro] Allergy Palpitation Verified 06/17/18 15:42 s onions Allergy Unknown lightheaded Uncoded 06/17/18 15:42 PMH/Surg Hx/FS Hx/Imm Hx Previously Healthy: Yes Other History Of: Negative For: HIV, Hepatitis B, Hepatitis C - Surgical History Surgical History: Yes Surgery Procedure, Year, and Place: bx heart age 14 ? ablation - Family History Known Family History: Positive: None, Cardiac Disease - Dad and PGF - Social History Occupation: Employed Part-time Lives: With Family Alcohol Use: None Alcohol Amount: RECOVERING ALCOHOLIC Substance Use Type: Marijuana, Prescribed Substance Use Comment - Amount & Last Used: 03/07/18 Smoking Status (MU): Heavy Every Day Tobacco Smoker Type: Cigarettes Amount Used/How Often: 1/2 PPD Length of Time of Smoking/Using Tobacco: started at age 17 Have You Smoked in the Last Year: Yes Household Exposure Type: Cigarettes Review of Systems Constitutional: Other - Lightheaded Respiratory: Negative Cardiovascular: Negative Neurological: Other - Tingling in face and throat All Other Systems Reviewed And Are Negative: Yes Physical Exam - Summary Physical Exam Summary: A+Ox3, anxious and tearful Eyes: Conjunctiva Clear, BINDU. EOM intact and full no injection ENT: Hearing grossly normal TM x 2 clear, mmoist, uvula midline, no exudate, no erythema, no difficulty with secretion, no intra-oral edema Neck: Positive: Supple Respiratory: Positive: No respiratory distress, No accessory muscle use + CTA throughout no w/r initially rapid respirations - improved with exanm Cardiovascular: RRR nl s1, s2 no m/r CBT <2 sec abd soft + BS nt/nd no guarding, no distension Musculoskeletal Exam: RODRÍGUEZ x 4 without difficulty Strength Intact, ROM Intact Neurological: Positive: Alert, appropriate + sensation throughout Psychological: Positive: Normal Response To Family Skin: Positive: no rash, no hives, no ecchymosis Triage Information Reviewed: Yes Allergic Reaction Course/Dx - Course Course Of Treatment: Patient presents to emergency department after exposure to onions. Patient with no allergic reaction onions. Patient took 100 mg of Benadryl prior to arrival. Patient's reports to brief loss of consciousness episodes x 2 Patient was evaluated and treated in the car as came running into urgent care. 911 was called immediately. Patient with normal mentating but anxious. Patient improved during evaluation. Patient's vital signs reviewed. Patient had be hypotensive with a blood pressure 94 systolic. Patient does take clonidine daily. Patient at this morning's dose but not this evening. Patient without hives, respiratory distress, or any concern for airway occlusion at the time of evaluation. Patient had IV placed. Patient lying supine in the car. Patient given cimetidine as well as Pepcid IV. Patient also given IV fluids wide open. Upon EMS presentation, patient's blood pressure improved to 100 systolic. Patient's breathing had slowed and she was without complaints. Patient was transferred to [facility] by EMS. I spoke with Dr. Kowalski, [facility], and gave report. critical care time: 20 minutes - Differential Dx/Diagnosis Provider Diagnoses: allergic reaction Discharge - Sign-Out/Discharge Documenting (check all that apply): Patient Departure - Discharge Plan Condition: Stable Disposition: TRANS HIGHER LVL OF CARE FAC Referrals: Jeny Hawley PA [Primary Care Provider] - - Billing Disposition and Condition Condition: STABLE Disposition: Trans Higher Lvl of Care Fac
[2018-06-17 15:39] VITALS: BP 104/44
== END 2018-06-17 15:24 | disposition short-term general hospital (02) ==
LOC: UCCORT 14:55
DX: T78.1XXA Other adverse food reactions, not elsewhere classified, initial encounter (principal); R42 Dizziness and giddiness; R20.2 Paresthesia of skin; X58.XXXA Exposure to other specified factors, initial encounter; F17.210 Nicotine dependence, cigarettes, uncomplicated; Z91.018 Allergy to other foods; Z88.3 Allergy status to other anti-infective agents; Z88.8 Allergy status to other drugs, medicaments and biological substances
CPT/HCPCS: 96361; 96374; 96375; 99213; G0463; J2930

== ENCOUNTER 2018-07-28 08:28 | Emergency (ER) | payer OTHER ==
[2018-07-28 08:48] VITALS: BP 106/52
--- NOTE | 2018-07-28 09:03 | UC ---
Respiratory Complaint HPI - HPI Summary HPI Summary: 33 year old with cough . c/o productive cough with green secretions, runny nose , lung discomfort, body aches that started 5 days. Fever 100.3 2 days ago. Has been withdrawing from medications that her PCP is decreasing. No SOB. Gets this one or two times a year. Takes allergy meds and does smoke. [ End ] - History of Current Complaint Chief Complaint: UCRespiratory Stated Complaint: UPPER RESPIRATORY Time Seen by Provider: 07/28/18 08:59 Hx Obtained From: Patient Hx Last Menstrual Period: 07/28/18 Onset/Duration: Gradual Onset Timing: Constant Severity Initially: Mild Severity Currently: Moderate Pain Intensity: 5 Character: Cough: Productive Associated Signs And Symptoms: Positive: Fever, Pleuritic Chest Pain, URI, Nasal Congestion - Risk Factors Cardiac Risk Factors: Smoking - Allergies/Home Medications Allergies/Adverse Reactions: Allergies Allergy/AdvReac Type Severity Reaction Status Date / Time lorazepam Allergy Intermediate Palpitation Verified 07/28/18 08:39 s amoxicillin Allergy See Comment Verified 07/28/18 08:39 escitalopram [From Lexapro] Allergy Palpitation Verified 07/28/18 08:39 s onions Allergy Unknown lightheaded Uncoded 07/28/18 08:39 PMH/Surg Hx/FS Hx/Imm Hx Previously Healthy: Yes Other History Of: Negative For: HIV, Hepatitis B, Hepatitis C - Surgical History Surgical History: Yes Surgery Procedure, Year, and Place: bx heart age 14 ? ablation. HEART CATH NO STENTS - Family History Known Family History: Positive: None, Cardiac Disease - Dad and PGF - Social History Alcohol Use: None Alcohol Amount: RECOVERING ALCOHOLIC Substance Use Type: Marijuana, Prescribed Substance Use Comment - Amount & Last Used: daily use Smoking Status (MU): Heavy Every Day Tobacco Smoker Type: Cigarettes Amount Used/How Often: 1/2 PPD Length of Time of Smoking/Using Tobacco: started at age 17 Have You Smoked in the Last Year: Yes Household Exposure Type: Cigarettes Cessation Counseling: Patient Advised to Stop Review of Systems Constitutional: Fatigue ENT: Ear Ache, Nasal Discharge, Sinus Congestion, Sinus Pain/Tenderness Respiratory: Cough Musculoskeletal: Myalgia Is Patient Immunocompromised?: No All Other Systems Reviewed And Are Negative: Yes Physical Exam Triage Information Reviewed: Yes Appearance: Well-Appearing, No Pain Distress, Well-Nourished Vital Signs: Initial Vital Signs Temp 97.1 F 07/28/18 08:42 Pulse 66 07/28/18 08:42 Resp 13 07/28/18 08:42 BP 106/52 07/28/18 08:42 Pulse Ox 100 07/28/18 08:42 Vital Signs Reviewed: Yes Eye Exam: Normal ENT Exam: Normal ENT: Positive: Nasal congestion, Nasal drainage, Sinus tenderness. Negative: TM bulging, TM dull, TM red, Tonsillar swelling Dental Exam: Normal Neck exam: Normal Neck: Positive: 1 Respiratory Exam: Normal Cardiovascular Exam: Normal Musculoskeletal Exam: Normal Neurological Exam: Normal Psychological Exam: Normal Skin Exam: Normal UC Diagnostic Evaluation - Laboratory O2 Sat by Pulse Oximetry: 100 Respiratory Course/Dx - Course Course Of Treatment: VIRAL SINUSITIS: IT APPEARS THAT AT THIS TIME YOU HAVE A VIRAL SINUSITIS AND ARE ADVISED TO CONTINUE WITH DECONGESTANTS, FLONASE AND PLEASE ADD THE KATIE MED SINUS RINSE / NETTI POT TO YOUR REGIMEN AND IF YOUR SYMPTOMS WORSEN OVER THE NEXT 3-4 DAYS THEN YOU MAY START THE ANTIBIOTICS - Differential Dx/Diagnosis Differential Diagnosis/HQI/PQRI: Bronchitis, Laryngitis, Lower Resp Infection, Sinusitis Provider Diagnoses: Sinusitis Discharge - Sign-Out/Discharge Documenting (check all that apply): Patient Departure All imaging exams completed and their final reports reviewed: No Studies - Discharge Plan Condition: Good Disposition: HOME Prescriptions: Amoxicillin/Clavulanate TAB* [Augmentin TAB 875*] 875 mg PO BID #20 tab Patient Education Materials: Sinusitis (ED) Referrals: Jeny Hawley PA [Primary Care Provider] - 4 Days Additional Instructions: VIRAL SINUSITIS: IT APPEARS THAT AT THIS TIME YOU HAVE A VIRAL SINUSITIS AND ARE ADVISED TO CONTINUE WITH antihistamines like claritin , FLONASE AND PLEASE ADD THE KATIE MED SINUS RINSE / NETTI POT TO YOUR REGIMEN AND IF YOUR SYMPTOMS WORSEN OVER THE NEXT 3-4 DAYS THEN YOU MAY START THE ANTIBIOTICS - Billing Disposition and Condition Condition: GOOD Disposition: Home
== END 2018-07-28 09:31 | disposition home or self-care (01) ==
LOC: UCCORT 08:28
DX: J32.9 Chronic sinusitis, unspecified (principal); F17.210 Nicotine dependence, cigarettes, uncomplicated; Z88.0 Allergy status to penicillin; Z88.8 Allergy status to other drugs, medicaments and biological substances
CPT/HCPCS: 99212; G0463

== ENCOUNTER 2019-01-14 13:19 | Emergency (ER) | payer OTHER ==
[2019-01-14 13:59] LABS: Urine Appearance Cloudy; Urine Bilirubin Negative (Negative); Urine Blood Negative (Negative); Urine Color Yellow; Urine Glucose Negative (Negative); Urine Ketones 1+ (Negative); Urine Nitrite Negative (Negative); Urine Protein Negative (Negative); Urine Specific Gravity 1.021 (1.010-1.030); Urine Urobilinogen Negative (Negative)
[2019-01-14] MEDS ORDERED: Nicotine Inhaler* 10 MG AMP INH ONE ×3 (14:11→18:20)
[2019-01-14] MEDS ORDERED: Mouth Piece, Nicotine* 1 EACH CARTRIDGE ONE (14:13)
[2019-01-14] MEDS ORDERED: Nicotine Inhaler* 10 MG AMP ONE (14:13)
--- OUTSIDE RECORDS SUMMARY | 2019-01-14 14:18 | XMS REPORT | Continuity of Care Document ---
:1985 External Reference #:[id number] Author Name Michel Souza DO, MPH Address [address], [address] [place] [address] Care Team Providers Name Role Phone Ellis Hooker M.D. Care Team Information Transportation Driver Unavailable Jeny Burrell N.P. Primary Care Physician Unavailable Payers Date Identification Numbers Payment Provider Subscriber Policy Number: [id number] [facility] Cathy Kitchen PayID: [id number] [employer] [address] [place] [address] Advance Directives Description No Information Available Problems Description No Information Family History Date Family Member(s) Observation Comments Mother 50 Children None Siblings 2 Social History Type Date Description Comments Sex Unknown Marital Status Significant Other Lives With Female Partner Occupation Unemployed Work Status Not Currently Working ETOH Use Denies alcohol use Tobacco Use Start: Unknown Patient is a current smoker, smokes every day Recreational Drug Use Denies Drug Use Smoking Status Reviewed: 12/21/18 Patient is a current smoker, smokes every day Allergies, Adverse Reactions, Alerts Date Description Reaction Status Severity Comments 08/17/2017 Amoxicillin Anaphylaxis Active 08/17/2017 Lorazepam Altered heart rate Active 08/17/2017 Lexapro Altered Heart Rate Active Medications Medication Date Status Form Strength Qnty SIG Indications Ordering Provider Shey 12/13/ Active Tablets 7.5mg 30tabs si by Harley 2018 mouth Michel, every day DO, MPH as directed Hydromorphone 09/21/ Active Tablets 2mg 90tabs si by GIORGI Souza 2016 mouth Michel, every 8 DO, MPH hours as directed chronic pain patient Melatonin 0000/ Active Capsules 10mg 1 by mouth Unknown 0000 at bedtime Benadryl 00/ Active Capsules 25mg as needed Unknown Allergy 0000 Neurontin / Active Tablets 600mg 90tabs si by Unknown 0000 mouth three times a day as directed chronic pain patient Seroquel / Active Tablets 50mg 1 by mouth Unknown 0000 at night as directed Oxymorphone HCL 09/21/ Hx Tablets 5mg 90tabs si by Harley 2016 - mouth Michel, 09/21/ every 8-12 DO, MPH 2016 hours as directed Eucrisa 09/21/ Hx Ointment 2% 1units Sig: as Harley 2016 - Directed Michel, 12/10/ DO, MPH 2017 Xanax 09/02/ Hx Tablets 2mg 90tabs si Harley 2016 - every 8 Michel, 01/11/ hours DO, MPH 2017 dosage change Hydrocodone-Ferdinand 08/17/ Hx Tablets 7.5-325mg 90tabs 1 by mouth shahid Souzainolizbeth 2016 - every 8 Michel, 09/21/ hours as DO, MPH 2016 directed chronic pain dose increase. Risperidone 00/ Hx Tablets 2mg 1 by mouth Unknown M-Tab 0000 - Dispers daily 2017 Alprazolam / Hx Tablets 0.5mg 1 every 8 Unknown 0000 - hours as 2016 Hydrocodone-Ferdinand / Hx Tablets 7.5-325mg 1 by mouth Unknown taminophen 0000 - daily 2016 Xanax 00/ Hx Tablets 1mg si by Unknown 0000 - mouth 06/20/ 2018 hours as directed Xanax / Hx Tablets 0.5mg si by Unknown 0000 - mouth 09/19/ 2017 as directed Abilify / Hx Tablets 5mg si by Unknown 0000 - mouth 2019 Immunizations Description No Information Available Vital Signs Date Vital Result Comment 12/21/2018 2:30pm BP Systolic 140 mmHg BP Diastolic 86 mmHg Heart Rate 82 /min Respiratory Rate 20 /min Height 68 inches 5'8" Weight 124.00 lb Pain Level 8 Pain at this time. Pain Level With Medicine 7 on average with meds Pain Level Without Medicine 10 08/10 without meds BMI (Body Mass Index) 18.9 kg/m2 12/05/2018 3:22pm BP Systolic 128 mmHg BP Diastolic 80 mmHg Heart Rate 78 /min Respiratory Rate 20 /min Height 68 inches 5'8" Weight 128.00 lb Pain Level 6 Pain at this time. Pain Level With Medicine 5 on average with meds Pain Level Without Medicine 10 08/10 without meds BMI (Body Mass Index) 19.5 kg/m2 11/21/2018 1:57pm BP Systolic 128 mmHg BP Diastolic 86 mmHg Heart Rate 84 /min Respiratory Rate 20 /min Height 68 inches 5'8" Weight 128.00 lb Pain Level 7 Pain at this time. Pain Level With Medicine 6 on average with meds Pain Level Without Medicine 10 08/10 without meds BMI (Body Mass Index) 19.5 kg/m2 11/08/2018 3:01pm BP Systolic 136 mmHg BP Diastolic 74 mmHg Respiratory Rate 20 /min Height 68 inches 5'8" Weight 132.00 lb Pain Level 8 Pain at this time. Pain Level With Medicine 7 on average with meds Pain Level Without Medicine 10 08/10 without meds BMI (Body Mass Index) 20.1 kg/m2 10/19/2018 2:44pm BP Systolic 136 mmHg BP Diastolic 84 mmHg Heart Rate 82 /min Respiratory Rate 20 /min Height 68 inches 5'8" Weight 136.00 lb Pain Level 6 Pain at this time. Pain Level With Medicine 5 on average with meds Pain Level Without Medicine 08/10 without meds BMI (Body Mass Index) 20.7 kg/m2 09/19/2018 9:20am BP Systolic 120 mmHg BP Diastolic 74 mmHg Heart Rate 76 /min Respiratory Rate 20 /min Height 68 inches 5'8" Weight 136.00 lb Pain Level 7 Pain at this time. Pain Level With Medicine 7 on average with meds Pain Level Without Medicine 10 08/10 without meds BMI (Body Mass Index) 20.7 kg/m2 08/19/2018 1:51pm BP Systolic 112 mmHg BP Diastolic 70 mmHg Heart Rate 72 /min Respiratory Rate 22 /min Height 68 inches 5'8" Weight 136.00 lb Pain Level 5 Pain at this time. Pain Level With Medicine 4 on average with meds Pain Level Without Medicine 10 08/10 without meds BMI (Body Mass Index) 20.7 kg/m2 07/20/2018 3:26pm BP Systolic 136 mmHg BP Diastolic 86 mmHg Heart Rate 84 /min Respiratory Rate 20 /min Height 68 inches 5'8" Weight 136.00 lb Pain Level 8 Pain at this time. Pain Level With Medicine 7 on average with meds Pain Level Without Medicine 10 08/10 without meds BMI (Body Mass Index) 20.7 kg/m2 06/20/2018 3:24pm BP Systolic 122 mmHg BP Diastolic 74 mmHg Heart Rate 76 /min Respiratory Rate 20 /min Height 68 inches 5'8" Weight 152.00 lb Pain Level 8 Pain at this time. Pain Level With Medicine 8 on average with meds Pain Level Without Medicine 10 08/10 without meds BMI (Body Mass Index) 23.1 kg/m2 05/19/2018 3:58pm BP Systolic 122 mmHg BP Diastolic 74 mmHg Heart Rate 76 /min Respiratory Rate 20 /min Height 68 inches 5'8" Weight 154.00 lb Pain Level 9 Pain at this time. Pain Level With Medicine 8 on average with meds Pain Level Without Medicine 10 08/10 without meds BMI (Body Mass Index) 23.4 kg/m2 05/05/2018 3:09pm BP Systolic 122 mmHg BP Diastolic 74 mmHg Heart Rate 76 /min Respiratory Rate 20 /min Height 68 inches 5'8" Weight 150.00 lb Pain Level 7 Pain at this time. Pain Level With Medicine 6 on average with meds Pain Level Without Medicine 08/10 without meds BMI (Body Mass Index) 22.8 kg/m2 04/22/2018 9:35am BP Systolic 132 mmHg BP Diastolic 84 mmHg Heart Rate 80 /min Respiratory Rate 20 /min Height 68 inches 5'8" Weight 151.00 lb Pain Level 7 Pain at this time. Pain Level With Medicine 6 on average with meds Pain Level Without Medicine 10 08/10 without meds BMI (Body Mass Index) 23.0 kg/m2 03/29/2018 3:32pm BP Systolic 128 mmHg BP Diastolic 74 mmHg Heart Rate 76 /min Respiratory Rate 20 /min Height 68 inches 5'8" Weight 151.00 lb Pain Level 8 Pain at this time. Pain Level With Medicine 8 on average with meds Pain Level Without Medicine 10 08/10 without meds BMI (Body Mass Index) 23.0 kg/m2 03/14/2018 9:30am BP Systolic 116 mmHg BP Diastolic 72 mmHg Heart Rate 74 /min Respiratory Rate 20 /min Height 68 inches 5'8" Weight 155.00 lb Pain Level 9 Pain at this time. Pain Level With Medicine 8 on average with meds Pain Level Without Medicine 10 08/10 without meds BMI (Body Mass Index) 23.6 kg/m2 02/22/2018 2:29pm BP Systolic 134 mmHg BP Diastolic 80 mmHg Heart Rate 82 /min Respiratory Rate 20 /min Height 68 inches 5'8" Weight 160.00 lb Pain Level 8 Pain at this time. Pain Level With Medicine 7 on average with meds Pain Level Without Medicine 10 08/10 without meds BMI (Body Mass Index) 24.3 kg/m2 02/08/2018 2:53pm BP Systolic 126 mmHg BP Diastolic 78 mmHg Heart Rate 80 /min Respiratory Rate 20 /min Height 68 inches 5'8" Weight 158.00 lb Pain Level 8 Pain at this time. Pain Level With Medicine 7 on average with meds Pain Level Without Medicine 10 08/10 without meds BMI (Body Mass Index) 24.0 kg/m2 01/25/2018 2:32pm BP Systolic 130 mmHg BP Diastolic 84 mmHg Heart Rate 88 /min Respiratory Rate 20 /min Height 68 inches 5'8" Weight 158.00 lb Pain Level 9 Pain at this time. Pain Level With Medicine 8 on average with meds Pain Level Without Medicine 08/10 without meds BMI (Body Mass Index) 24.0 kg/m2 01/11/2018 11:18am BP Systolic 122 mmHg BP Diastolic 74 mmHg Heart Rate 76 /min Respiratory Rate 20 /min Height 68 inches 5'8" Weight 158.00 lb Pain Level 8 Pain at this time. Pain Level With Medicine 5 on average with meds Pain Level Without Medicine 08/10 without meds BMI (Body Mass Index) 24.0 kg/m2 12/10/2017 2:23pm BP Systolic 122 mmHg BP Diastolic 74 mmHg Heart Rate 70 /min Respiratory Rate 20 /min Height 68 inches 5'8" Weight 158.00 lb Pain Level 9 Pain at this time. Pain Level With Medicine 7 on average with meds Pain Level Without Medicine 10 08/10 without meds BMI (Body Mass Index) 24.0 kg/m2 11/08/2017 2:35pm BP Systolic 120 mmHg BP Diastolic 80 mmHg Heart Rate 74 /min Respiratory Rate 20 /min Height 68 inches 5'8" Weight 158.00 lb Pain Level 7 Pain at this time. Pain Level With Medicine 6 on average with meds Pain Level Without Medicine 10 08/10 without meds BMI (Body Mass Index) 24.0 kg/m2 10/20/2017 4:22pm BP Systolic 138 mmHg BP Diastolic 84 mmHg Heart Rate 86 /min Respiratory Rate 20 /min Height 68 inches 5'8" Weight 166.00 lb Pain Level 9 Pain at this time. Pain Level With Medicine 8 on average with meds Pain Level Without Medicine 10 08/10 without meds BMI (Body Mass Index) 25.2 kg/m2 09/21/2017 11:50am BP Systolic 116 mmHg BP Diastolic 70 mmHg Heart Rate 72 /min Respiratory Rate 20 /min Height 68 inches 5'8" Weight 166.00 lb Pain Level 8 Pain at this time. Pain Level With Medicine 7 on average with meds Pain Level Without Medicine 10 08/10 without meds BMI (Body Mass Index) 25.2 kg/m2 09/02/2017 3:26pm BP Systolic 120 mmHg BP Diastolic 76 mmHg Heart Rate 74 /min Respiratory Rate 20 /min Height 68 inches 5'8" Weight 166.00 lb Pain Level 6 Pain at this time. Pain Level With Medicine 5 on average with meds Pain Level Without Medicine 10 08/10 without meds BMI (Body Mass Index) 25.2 kg/m2 08/17/2017 2:17pm BP Systolic 138 mmHg BP Diastolic 80 mmHg Heart Rate 82 /min Respiratory Rate 20 /min Height 68 inches 5'8" Weight 160.00 lb Pain Level 7 Pain at this time. Pain Level Without Medicine 10 08/10 without meds BMI (Body Mass Index) 24.3 kg/m2 Results Description No Information Available Procedures Date Code Description Status 11/21/2018 37280 Omt 5-6 Body Regions Completed 11/08/2018 12077 Omt 3-4 Body Regions Completed 09/19/2018 86233 Omt 5-6 Body Regions Completed 08/19/2018 65203 Omt 5-6 Body Regions Completed 06/20/2018 35050 Omt 5-6 Body Regions Completed 12/10/2017 54810 Therapeutic, Prophylactic Or Diagnostic Injection Subq/Im Completed Encounters Type Date Location Provider Dx Diagnosis Office Visit 12/05/2018 Main Office as Of Michel Souza DO, G89.29 Other chronic pain 3:15p 12/02/13 MPH M54.5 Low back pain M54.6 Pain in thoracic spine M54.2 Cervicalgia M25.552 Pain in left hip Z79.891 [facility] (current) use of opiate analgesic Office Visit 11/21/2018 2:00p Main Office as Michel Souza, G89.29 Other chronic Of 12/02/13 DO, MPH pain M54.5 Low back pain M99.03 Segmental and somatic dysfunction of lumbar region M54.6 Pain in thoracic spine M99.02 Segmental and somatic dysfunction of thoracic region M54.2 Cervicalgia M99.01 Segmental and somatic dysfunction of cervical region M53.3 Sacrococcygeal disorders, not elsewhere classified M99.04 Segmental and somatic dysfunction of sacral region M25.552 Pain in left hip M99.05 Segmental and somatic dysfunction of pelvic region Z79.891 [facility] (current) use of opiate analgesic F43.12 Post-traumatic stress disorder, chronic Office Visit 11/08/2018 3:30p Main Office as Michel Souza G89.29 Other chronic Of 12/02/13 DO, MPH pain M54.2 Cervicalgia M99.01 Segmental and somatic dysfunction of cervical region M54.5 Low back pain M99.03 Segmental and somatic dysfunction of lumbar region M54.6 Pain in thoracic spine M99.02 Segmental and somatic dysfunction of thoracic region Z71.89 Other specified 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 Office Visit 10/19/2018 3:45p Main Office as Michel Souza G89.29 Other chronic Of 12/02/13 DO, MPH pain M54.2 Cervicalgia M54.5 Low back pain M53.3 Sacrococcygeal disorders, not elsewhere classified M25.551 Pain in right hip M25.552 Pain in left hip 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 Office Visit 09/19/2018 9:15a Main Office as Michel Souza G89.29 Other chronic Of 12/02/13 DO, MPH pain M54.2 Cervicalgia M99.01 Segmental and somatic dysfunction of cervical region M54.5 Low back pain M99.03 Segmental and somatic dysfunction of lumbar region M54.6 Pain in thoracic spine M99.02 Segmental and somatic dysfunction of thoracic region M53.3 Sacrococcygeal disorders, not elsewhere classified M99.04 Segmental and somatic dysfunction of sacral region M25.551 Pain in right hip M25.552 Pain in left hip Z79.891 [facility] (current) use of opiate analgesic M99.05 Segmental and somatic dysfunction of pelvic region Office Visit 08/19/2018 2:15p Main Office as Michel Souza, G89.29 Other chronic Of 12/02/13 DO, MPH pain M54.2 Cervicalgia M99.01 Segmental and somatic dysfunction of cervical region M54.6 Pain in thoracic spine M99.02 Segmental and somatic dysfunction of thoracic region M54.5 Low back pain M99.03 Segmental and somatic dysfunction of lumbar region M53.3 Sacrococcygeal disorders, not elsewhere classified M25.551 Pain in right hip M25.552 Pain in left hip M99.05 Segmental and somatic dysfunction of pelvic region Z79.891 [facility] (current) use of opiate analgesic Office Visit 07/20/2018 4:00p Main Office as Michel Souza G89.29 Other chronic Of 12/02/13 DO, MPH pain M54.2 Cervicalgia M54.6 Pain in thoracic spine M54.5 Low back pain F43.12 Post-traumatic stress disorder, chronic F41.1 Generalized anxiety disorder Z79.891 [facility] (current) use of opiate analgesic Office Visit 06/20/2018 4:15p Main Office as Michel Souza, G89.29 Other chronic Of 12/02/13 DO, MPH pain M54.2 Cervicalgia M99.01 Segmental and somatic dysfunction of cervical region M54.6 Pain in thoracic spine M99.02 Segmental and somatic dysfunction of thoracic region M54.5 Low back pain M99.03 Segmental and somatic dysfunction of lumbar region M53.3 Sacrococcygeal disorders, not elsewhere classified M99.04 Segmental and somatic dysfunction of sacral region M25.552 Pain in left hip M25.551 Pain in right hip M99.05 Segmental and somatic dysfunction of pelvic region 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 Office Visit 05/19/2018 4:00p Main Office as Michel Souza, G89.29 Other chronic Of 12/02/13 DO, MPH pain M54.5 Low back pain M25.561 Pain in right knee M25.562 Pain in left knee F43.12 Post-traumatic stress disorder, chronic F41.1 Generalized anxiety disorder Z79.891 [facility] (current) use of opiate analgesic Office Visit 05/05/2018 3:15p Main Office as Michel Souza G89.29 Other chronic Of 12/02/13 DO, MPH pain M25.562 Pain in left knee M25.561 Pain in right knee M54.5 Low back pain F43.12 Post-traumatic stress disorder, chronic F41.1 Generalized anxiety disorder 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 Office Visit 04/22/2018 9:30a Main Office as Michel Souza G89.29 Other chronic Of 12/02/13 DO, MPH pain M25.562 Pain in left knee M25.561 Pain in right knee M54.5 Low back pain Z79.891 [facility] (current) use of opiate analgesic Office Visit 03/29/2018 3:45p Main Office as Michel Souza G89.29 Other chronic Of 12/02/13 DO, MPH pain M25.562 Pain in left knee M25.561 Pain in right knee M54.5 Low back pain F43.12 Post-traumatic stress disorder, chronic F41.1 Generalized anxiety disorder Z79.891 [facility] (current) use of opiate analgesic Office Visit 03/14/2018 9:45a Main Office as Michel Souza G89.29 Other chronic Of 12/02/13 DO, MPH pain M25.562 Pain in left knee M25.561 Pain in right knee M54.5 Low back pain F43.12 Post-traumatic stress disorder, chronic F41.1 Generalized anxiety disorder Z71.89 Other specified counseling Z79.891 [facility] (current) use of opiate analgesic Office Visit 02/22/2018 2:30p Main Office as Michel Souza G89.29 Other chronic Of 12/02/13 DO, MPH pain M54.5 Low back pain M25.561 Pain in right knee M25.562 Pain in left knee F43.12 Post-traumatic stress disorder, chronic F41.1 Generalized anxiety disorder Z71.89 Other specified 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 Office Visit 02/08/2018 2:45p Main Office as Michel Souza G89.29 Other chronic Of 12/02/13 DO, MPH pain M54.5 Low back pain M25.561 Pain in right knee M25.562 Pain in left knee F43.12 Post-traumatic stress disorder, chronic F41.1 Generalized anxiety disorder 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 Office Visit 01/25/2018 2:45p Main Office as Michel Souza G89.29 Other chronic Of 12/02/13 DO, MPH pain M54.5 Low back pain M25.561 Pain in right knee M25.562 Pain in left knee F43.12 Post-traumatic stress disorder, chronic F41.1 Generalized anxiety disorder Z79.891 [facility] (current) use of opiate analgesic 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 Office Visit 01/11/2018 11:15a Main Office as Michel Souza G89.29 Other chronic Of 12/02/13 DO, MPH pain M54.5 Low back pain M25.561 Pain in right knee M25.562 Pain in left knee R53.83 Other fatigue 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 Office Visit 12/10/2017 2:30p Main Office as Michel Souza G89.29 Other chronic Of 12/02/13 DO, MPH pain M54.5 Low back pain M51.36 Other intervertebral disc degeneration, lumbar region M25.561 Pain in right knee M25.562 Pain in left knee R53.83 Other fatigue F17.210 Nicotine dependence, cigarettes, uncomplicated 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 Office Visit 11/08/2017 2:45p Main Office as Michel Souza G89.29 Other chronic Of 12/02/13 DO, MPH pain M54.5 Low back pain M51.36 Other intervertebral disc degeneration, lumbar region M25.561 Pain in right knee M25.562 Pain in left knee F43.12 Post-traumatic stress disorder, chronic 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 Office Visit 10/20/2017 4:00p Main Office as Michel Souza, G89.29 Other chronic Of 12/02/13 DO, MPH pain M54.5 Low back pain M51.36 Other intervertebral disc degeneration, lumbar region M25.562 Pain in left knee M25.561 Pain in right knee F41.1 Generalized anxiety disorder Z79.891 [facility] (current) use of opiate analgesic Office Visit 09/21/2017 11:45a Main Office as Michel Souza G89.29 Other chronic Of 12/02/13 DO, MPH pain M51.36 Other intervertebral disc degeneration, lumbar region M54.5 Low back pain Z79.891 [facility] (current) use of opiate analgesic L30.8 Other specified dermatitis Office Visit 09/02/2017 3:30p Main Office as Michel Souza G89.29 Other chronic Of 12/02/13 DO, MPH pain M54.5 Low back pain M51.36 Other intervertebral disc degeneration, lumbar region M25.561 Pain in right knee M25.562 Pain in left knee F41.1 Generalized anxiety disorder Z79.891 [facility] (current) use of opiate analgesic Office Visit 08/17/2017 1:45p Main Office as Michel Souza G89.29 Other chronic Of 12/02/13 DO, MPH pain M51.36 Other intervertebral disc degeneration, lumbar region M54.5 Low back pain M25.561 Pain in right knee M25.562 Pain in left knee F41.1 Generalized anxiety disorder Z71.89 Other specified 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 Symptoms and complaints discussed and reviewed today. No significant changes in physical findings. Continue current medical pain management.M54.5 Low back painComments:Chronic. Symptoms and complaints discussed and reviewed today.No changes in physical findings. Patient is stable and comfortable when current medical therapy is rendered.M54.6 Pain in thoracic spineComments:Chronic.Symptoms and complaints discussed and reviewed today. No significant changes in physical findings. Continue current medical pain management.M54.2 CervicalgiaComments:Chronic. Symptoms and complaints discussed and reviewed today. No significant changes in physical findings. Continue current medical pain management. ~B_ ~b_Z13.31 Encounter for screening for depressionComments:PHQ-9 Depression Screen administered today, results were Positive at this time. Followed by PCP andcounselor. Will follow as pertains to their pain. Patient seems to be stable today. Reassurance andcounseling. Patient seems to be stable today.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New Labs:Urine Drug Screen, Ordered: 12/21/18Comments:~B_Urine drug screen sample taken. Rapid Point of Care Cup was reviewed in office with patient. Will send out UDT Rapid to [facility] lab for confirmation testing. Urine Drug Testing (UDT) was done today to monitor opiate use and to monitor possible use of illicit substances. I will discuss the results at the next appointment from the [facility] lab.~b_The following tests were ordered:6 AM, AMPH, MALINI, CLIFFORD, BUP, CARIS, COCM, COT, ETG, FENT, MCSHSG, OPI, OXY, PCP, TAPEN , XTSY, ZOLP. ~I_A urine drug test (UDT) was ordered for this patient and collected on site today. Creatinine has beenordered as well for specimen validity, not for kidney function. Preliminary UDT results are not final and should not be used to determine patient care or plan of treatment. Initially a qualitative immunoassay screen will be done. Any inconsistent or positive findings will be further tested with a more comprehensive quantitative confirmation LCMS study. It is part of the treatment process of prescribing controlled substances and is considered standard of care.~i_ ~B_~b_ AllComments:All above symptoms and complaints discussed as well as diagnoses reviewed.Continue trial of opioid pain management - note changes below; injection therapy, osteopathic manipulation (OMT), PT / modalities, and consults as needed to manage chronic pain.Side effects discussed; anticipatory guidance given. Patient clearly understands and agrees with all medical treatments and suggestions. All medicines prescribed are adequate and appropriate for this patient's complaint of pain, medical history, physical, and personal goals.Goals of Treatment are to provide adequate and appropriate multidisciplinary medical pain management to increase/ maintain patient's quality of life and functionality while maintaining satisfactory side effect profile and minimizing long term care pharmacist end-organ damage. Activity as toleratedContinue with PCP
[2019-01-14 14:27] LABS: Barbiturates Urine Screen None Detected (None Detect); Benzodiazepine Urine Screen None Detected (None Detect); Urine Cannabinoids Screen Presumptive Positive (None Detect)
[2019-01-14] MEDS ORDERED: Gabapentin CAP(*) 300 MG PO ONE (14:28)
[2019-01-14] MEDS ORDERED: QUEtiapine TAB* 25 MG PO ONE ×2 (14:28→19:21)
[2019-01-14] MEDS ORDERED: HYDROcodone/ACETAMIN 5-325 MG* 1 TAB PO ONE (14:44)
--- NOTE | 2019-01-14 15:12 | ED ---
Psychiatric Complaint - HPI Summary HPI Summary: patient is a 33-year-old female with a complicated past medical history of anxiety, depression, chronic pain she's brought in by police today she was recently transferred to the [facility] for her care. She called the mental health unit today to ask someone to come to her house, however I am unable to understand why she wanted to have someone come to her house as she continues to be tangential and is unable to answer questions appropriately. She is extremely manic on arrival. She is crying hysterically and talking about how she is unsafe and "everybody rapes me." is at bedside. She is currently on Seroquel 50 mg, gabapentin 600 mg and hydromorphone 2 mg 3 times daily. - History Of Current Complaint Chief Complaint: EDMentalHealth Time Seen by Provider: 01/14/19 13:23 Hx Obtained From: Patient Hx Last Menstrual Period: 07/28/18 ?: No Onset/Duration: Sudden Onset Timing: Constant Severity Initially: Severe Severity Currently: Severe Character: Manic, Depressed, Fearful, Anxious, Angry, Frustrated Aggravating Factor(s): Recent Stress Alleviating Factor(s): Nothing Associated Signs And Symptoms: Positive: Paranoid Behavior, Sleep Disturbance, Appetite Change, Social Withdrawal, Social Isolation Related History: Positive For: Prior Psychiatric Issues - Allergies/Home Medications Allergies/Adverse Reactions: Allergies Allergy/AdvReac Type Severity Reaction Status Date / Time lorazepam Allergy Intermediate Palpitation Verified 01/14/19 14:23 s amoxicillin Allergy See Comment Verified 01/14/19 14:23 escitalopram [From Lexapro] Allergy Palpitation Verified 01/14/19 14:23 s onions Allergy Unknown lightheaded Uncoded 07/28/18 08:39 PMH/Surg Hx/FS Hx/Imm Hx Previously Healthy: Yes Endocrine/Hematology History: Denies: Hx Diabetes, Hx Thyroid Disease Cardiovascular History: Denies: Hx Congestive Heart Failure, Hx Deep Vein Thrombosis, Hx Hypertension , Hx Myocardial Infarction, Hx Pacemaker/ICD Respiratory History: Reports: Hx Asthma Denies: Hx Chronic Obstructive Pulmonary Disease (COPD), Hx Lung Cancer, Hx Pneumonia, Hx Pulmonary Embolism GI History: Reports: Hx Ulcer - She used to be on omeprazole years ago. Denies: Hx Gall Bladder Disease, Hx Gastrointestinal Bleed, Hx Urosepsis History: Denies: Hx Kidney Stones, Hx Renal Disease Sensory History: Denies: Hx Hearing Aid Neurological History: Reports: Hx Seizures - Last seizure, "years ago." Stress- induced seizures. Denies: Hx Dementia, Hx Migraine, Hx Transient Ischemic Attacks (TIA) Psychiatric History: Reports: Hx Anxiety, Hx Panic Disorder, Hx Schizophrenia Denies: Hx Depression, Hx Bipolar Disorder - Surgical History Surgery Procedure, Year, and Place: bx heart age 14 ? ablation. HEART CATH NO STENTS - Immunization History Hx Pertussis Vaccination: No Immunizations Up to Date: Yes Infectious Disease History: No Infectious Disease History: Denies: Traveled Outside the [place] in Last 30 Days - Family History Known Family History: Positive: None, Cardiac Disease - Dad and PGF - Social History Occupation: Unemployed Lives: With Family - with Alcohol Use: None Alcohol Amount: RECOVERING ALCOHOLIC Substance Use Type: Reports: None Substance Use Comment - Amount & Last Used: daily use Hx Tobacco Use: Yes Smoking Status (MU): Heavy Every Day Tobacco Smoker Type: Cigarettes Amount Used/How Often: 1/2 PPD Length of Time of Smoking/Using Tobacco: started at age 17 Have You Smoked in the Last Year: Yes Review of Systems Negative: Fever, Chills, Fatigue, Skin Diaphoresis Negative: Palpitations, Chest Pain Negative: Shortness Of Breath, Cough Genitourinary: Negative Positive: no symptoms reported, see HPI Negative: Arthralgia, Myalgia Skin: Negative Negative: Headache, Weakness, Paresthesia Positive: Anxious, Depressed All Other Systems Reviewed And Are Negative: Yes Physical Exam Triage Information Reviewed: Yes Completion Of Physical Exam Limited Due To: Altered Mental Status - tangential and extremely anxious - crying on arrival and unable to answer questions Appearance: Positive: Well-Appearing, Well-Nourished Skin: Positive: Warm, Skin Color Reflects Adequate Perfusion Head/Face: Positive: Normal Head/Face Inspection Eyes: Positive: Conjunctiva Clear Respiratory/Lung Sounds: Positive: Breath Sounds Present Cardiovascular: Positive: Normal Musculoskeletal: Positive: Normal, Strength/ROM Intact Psychiatric: Positive: Anxious, Patient Uncooperative for Exam Diagnostics - Laboratory Lab Results: Lab Results 01/14/19 01/14/19 Range/Units 13:43 13:43 Urine Color Yellow Urine Appearance Cloudy Urine pH 6.0 (5-9) Ur Specific [place] 1.021 (1.010-1.030) Urine Protein Negative (Negative) Urine Ketones 1+ A (Negative) Urine Blood Negative (Negative) Urine Nitrate Negative (Negative) Urine Bilirubin Negative (Negative) Urine Urobilinogen Negative (Negative) Ur Leukocyte Esterase Negative (Negative) Urine Glucose Negative (Negative) Urine Ascorbic Acid * A (Negative) Urine Opiates Screen Presumptive positive A (None Detect) Ur Barbiturates Screen None detected (None Detect) Ur Phencyclidine Scrn None detected (None Detect) Ur Amphetamines Screen None detected (None Detect) U Benzodiazepines Scrn None detected (None Detect) Urine Cocaine Screen None detected (None Detect) U Cannabinoids Screen Presumptive positive A (None Detect) Lab Statement: Any lab studies that have been ordered have been reviewed, and results considered in the medical decision making process. Course/Dx - Course Course Of Treatment: During this course treatment, the patient's evaluated for extreme kirstin. In the ED course, she is given hydrocodone 10 mg, risperidone 50 mg and gabapentin 600 mg. she continues to have anxiety, and was subsequently given another Seroquel 300 mg. This was able to calm her down and psychiatrist: Dr. Garcia's interview, no indication of intent for harm to self or others and Pt is able to care for herself. Pt is not in need of admission to [facility]. Patient is signed out to Phani Young PA-C pending end of interview by Dr. Garcia. - Differential Dx/Clinical Impression Provider Diagnosis: Anxiety Discharge - Sign-Out/Discharge Documenting (check all that apply): Patient Departure Patient Received Moderate/Deep Sedation with Procedure: No - Discharge Plan Condition: Improved Disposition: HOME Patient Education Materials: Anxiety (ED) Referrals: Jeny Hawley PA [Primary Care Provider] - Additional Instructions: Per completion of a mental health evaluation, you are cleared for release and do not require inpatient psychiatric hospitalization at this time. Please go to nearest emergency room or call 911 if safety concerns arise or condition worsens. Important Phone Numbers: [facility] ph:[phone] [facility] Crisis [facility] ph:[phone] National Suicide Prevention Lifeline ph:[phone] (1609) [facility] ph:[phone] Alcoholics Anonymous ph:[phone] [facility] ph:[phone] [place] [employer] ph:[phone] Recommendation: Follow up with [facility] on Wednesday morning to schedule intake and assessment. - Billing Disposition and Condition Condition: IMPROVED Disposition: Home
[2019-01-14] MEDS ORDERED: QUEtiapine TAB* 100 MG PO ONE ×2 (16:47→16:50)
[2019-01-14 19:49] VITALS: BP 128/77
--- NOTE | 2019-01-14 20:02 | PN ---
Progress Note - Progress Note Date of Service: 01/14/19 Note: Patient signed out to me by Katlyn DOWNS pending mental health evaluation. Per mental health evaluation, patient was discharged in stable condition with diagnosis of unspecified anxiety disorder, to follow up with outpatient mental health resources.
== END 2019-01-14 19:40 | disposition home or self-care (01) ==
LOC: ED 13:19
DX: F41.9 Anxiety disorder, unspecified (principal); F32.9 Major depressive disorder, single episode, unspecified; J45.909 Unspecified asthma, uncomplicated; Z88.0 Allergy status to penicillin; Z88.8 Allergy status to other drugs, medicaments and biological substances; Z91.018 Allergy to other foods; F17.210 Nicotine dependence, cigarettes, uncomplicated
CPT/HCPCS: 36415; 80307; 81003; 99284; A9270-GY

== ENCOUNTER 2019-02-03 07:35 | Emergency (ER) | payer OTHER ==
[2019-02-03 07:53] VITALS: BP 108/62
--- NOTE | 2019-02-03 07:58 | UC ---
Dental HPI - HPI Summary HPI Summary: 34 female with left lower dental pain x 4 days no f/c no DM no n/v/d She is very anxious when seeing doctors and states she often hyperventilates and passes out see states she will likely not see a dentist in follow up because she will need to be heavily sedated due to her anxiety - History of Current Complaint Chief Complaint: UCDentalProblem Stated Complaint: ORAL CONCERN Time Seen by Provider: 02/03/19 07:57 Hx Obtained From: Patient Hx Last Menstrual Period: UNKNOWN Onset/Duration: Gradual Onset, Lasting Days Severity: Moderate Pain Intensity: 5 Pain Scale Used: 0-10 Numeric Aggravating Factor(s): Chewing Alleviating Factor(s): Nothing Dental: 1 - possible abscess, slight swelling - Allergies/Home Medications Allergies/Adverse Reactions: Allergies Allergy/AdvReac Type Severity Reaction Status Date / Time lorazepam Allergy Intermediate Palpitation Verified 02/03/19 07:43 s amoxicillin Allergy See Comment Verified 02/03/19 07:43 escitalopram [From Lexapro] Allergy Palpitation Verified 02/03/19 07:43 s onions Allergy Unknown lightheaded Uncoded 02/03/19 07:43 Home Medications: Home Medications Quetiapine Fumarate [Seroquel 200 MG] 200 mg PO TID 02/03/19 [History Confirmed 02/03/19] PMH/Surg Hx/FS Hx/Imm Hx Previously Healthy: Yes Cardiovascular History: Other - ? ablation of accessory tract Respiratory History: Asthma GI/ History: Ulcer Psychological History: Anxiety Other History Of: Negative For: HIV, Hepatitis B, Hepatitis C - Surgical History Surgical History: Yes Surgery Procedure, Year, and Place: bx heart age 14 ? ablation. HEART CATH NO STENTS - Family History Known Family History: Positive: Cardiac Disease - Dad and PGF - Social History Alcohol Use: None Alcohol Amount: RECOVERING ALCOHOLIC Substance Use Type: Marijuana Substance Use Comment - Amount & Last Used: daily use Smoking Status (MU): Heavy Every Day Tobacco Smoker Type: Cigarettes Amount Used/How Often: 2 PPD Length of Time of Smoking/Using Tobacco: started at age 17 Have You Smoked in the Last Year: Yes Household Exposure Type: Cigarettes Review of Systems All Other Systems Reviewed And Are Negative: Yes Constitutional: Positive: Negative, Fever Eyes: Positive: Negative ENT: Positive: Dental Pain Respiratory: Positive: Negative Cardiovascular: Positive: Negative Gastrointestinal: Positive: Negative Genitourinary: Positive: Negative Motor: Positive: Negative Neurovascular: Positive: Negative Musculoskeletal: Positive: Negative Neurological: Positive: Negative Psychological: Positive: Anxious Physical Exam Triage Information Reviewed: Yes Appearance: Well-Appearing, No Pain Distress, Well-Nourished, Thin Vital Signs: Initial Vital Signs Temp 97.8 F 02/03/19 07:45 Pulse 104 02/03/19 07:45 Resp 24 02/03/19 07:45 BP 108/62 02/03/19 07:45 Pulse Ox 100 02/03/19 07:45 Vital Signs Reviewed: Yes ENT: Positive: Hearing grossly normal. Negative: Nasal congestion, Nasal drainage, Muffled voice, Hoarse voice Dental: Positive: Other: - see image Neck: Positive: Supple, Nontender, No Lymphadenopathy Respiratory: Positive: Lungs clear, Normal breath sounds, No respiratory distress, No accessory muscle use Cardiovascular: Positive: RRR, No Murmur Musculoskeletal: Positive: ROM Intact, No Edema Neurological: Positive: Alert Psychological Exam: Other - anxious/pacing/pressured speech/no suicidal or homicidal ideation Skin Exam: Normal Dental Complaint Course/Dx - Differential Dx/Diagnosis Provider Diagnosis: Dental abscess Discharge - Sign-Out/Discharge Documenting (check all that apply): Patient Departure All imaging exams completed and their final reports reviewed: No Studies - Discharge Plan Condition: Stable Disposition: HOME Prescriptions: Clindamycin Oral SOLUTION* [Clindamycin 75 MG/5 ML SOLUTION*] 300 mg PO QID # [id number] [id number] Patient Education Materials: Dental Abscess (ED) Referrals: Jeny Hawley PA [Physician [employer]] - Additional Instructions: to ER if not improved in 48 hours you should see a dentist - Billing Disposition and Condition Condition: STABLE Disposition: Home
--- OUTSIDE RECORDS SUMMARY | 2019-02-03 08:21 | XMS REPORT | Continuity of Care Document ---
:1985 External Reference #:[id number] Author Name Michel Souza DO, MPH Address [address] [place] [address], [address] [place] [address] Care Team Providers Name Role Phone Ellis Hooker M.D. Care Team Information [employer] Unavailable Radha Draper M.D Primary Care Physician Unavailable Payers Date Identification Numbers Payment Provider Subscriber Policy Number: [id number] [facility] Cathy Kitchen PayID: [id number] [employer] [address] [place] [address] Advance Directives Description No Information Available Problems [...] Use Denies Drug Use Smoking Status Reviewed: 01/31/19 Patient is a current smoker, smokes every day Allergies, Adverse Reactions, Alerts Date Description Reaction Status Severity Comments 08/17/2017 Amoxicillin Anaphylaxis Active 08/17/2017 Lorazepam Altered heart rate Active 08/17/2017 Lexapro Altered Heart Rate Active Medications Medication Date Status Form Strength Qnty SIG Indications Ordering Provider Mobic 12/13/ Active Tablets 7.5mg 30tabs si by Harley 2018 mouth Michel, every day DO, MPH as directed Hydromorphone 09/21/ Active Tablets 2mg 90tabs si by GIORGI Souza 2016 mouth Michel, every 8 DO, MPH hours as directed chronic pain patient Melatonin 00/00/ Active Capsules 10mg 1 by mouth Unknown 0000 at bedtime Benadryl 00/ Active Capsules 25mg as needed Unknown Allergy 0000 Neurontin / Active Tablets 600mg 90tabs si by Unknown 0000 mouth three times a day as directed chronic pain patient Seroquel / Active Tablets 300mg si by Unknown 0000 mouth every day Oxymorphone HCL 09/21/ Hx Tablets 5mg 90tabs si by Harley 2016 - mouth Michel, 09/21/ every 8-12 DO, MPH 2017 hours as directed Eucrisa 09/21/ Hx Ointment 2% 1units Sig: as Harley 2016 - Directed Michel, DO, MPH 2017 Xanax 09/02/ Hx Tablets 2mg 90tabs si Harley 2016 - every 8 Michel, 01/11/ hours DO, MPH 2017 dosage change Hydrocodone-Ferdinand 08/17/ Hx Tablets 7.5-325mg 90tabs 1 by mouth Harley taminophen 2016 - every 8 Michel, 09/21/ hours as DO, MPH 2016 directed chronic pain dose increase. Risperidone / Hx Tablets 2mg 1 by mouth Unknown M-Tab 0000 - Dispers daily 2017 Alprazolam / Hx Tablets 0.5mg 1 every 8 Unknown 0000 - hours as 2016 Hydrocodone-Ferdinand / Hx Tablets 7.5-325mg 1 by mouth Unknown taminophen 0000 - daily 2016 Xanax / Hx Tablets 1mg si by Unknown 0000 - mouth 06/20/ every 8 2018 hours as directed Xanax 00/ Hx Tablets 0.5mg si by Unknown 0000 - mouth every day 2018 as directed Abilify / Hx Tablets 5mg si by Unknown 0000 - mouth 11/21/ daily 2018 Seroquel / Hx Tablets 50mg 1 by mouth Souza, 0000 - at night Michel, as DO, MPH 2018 directed Immunizations Description No Information Available Vital Signs Date Vital Result Comment 01/31/2019 3:39pm BP Systolic 118 mmHg BP Diastolic 76 mmHg Heart Rate 74 /min Respiratory Rate 20 /min Height 68 inches 5'8" Weight 120.00 lb Pain Level 7 Pain at this time. Pain Level With Medicine 6 on average with meds Pain Level Without Medicine 10 08/10 without meds BMI (Body Mass Index) 18.2 kg/m2 01/20/2019 9:32am BP Systolic 128 mmHg BP Diastolic 84 mmHg Heart Rate 80 /min Respiratory Rate 20 /min Height 68 inches 5'8" Weight 118.00 lb Pain Level 9 Pain at this time. Pain Level With Medicine 9 on average with meds Pain Level Without Medicine 10 08/10 without meds BMI (Body Mass Index) 17.9 kg/m2 12/21/2018 2:30pm BP Systolic 140 mmHg BP [...] Information Available Procedures Date Code Description Status 12/21/2018 12528 Brief Emotional/Behav Assessment W/ Scoring Doc Per Completed Standard Inst 11/21/2018 02279 Omt 5-6 Body Regions Completed 11/08/2018 03665 Omt 3-4 Body Regions Completed 09/19/2018 53898 Omt 5-6 Body Regions Completed 08/19/2018 57235 Omt 5-6 Body Regions Completed 06/20/2018 92404 Omt 5-6 Body Regions Completed 12/10/2017 54120 Therapeutic, Prophylactic Or Diagnostic Injection Subq/Im Completed Encounters Type Date Location Provider Dx Diagnosis Office Visit 01/20/2019 Main Office as Of Michel Souza DO G89.29 Other chronic pain 9:00a 12/02/13 MPH M54.5 Low back pain M54.6 Pain in thoracic spine M54.2 Cervicalgia Z79.891 [facility] (current) use of opiate analgesic Z71.89 Other specified counseling Office Visit 12/21/2018 2:30p Main Office as Michel Souza G89.29 Other chronic Of 12/02/13 DO, MPH pain M54.5 Low back pain M54.6 Pain in thoracic spine M54.2 Cervicalgia Z13.31 Encounter for screening for depression Z79.891 [facility] (current) use of opiate analgesic Office Visit 12/05/2018 3:15p Main Office as Michel Souza G89.29 Other chronic Of 12/02/13 DO, MPH pain M54.5 Low back pain M54.6 Pain in thoracic spine M54.2 Cervicalgia M25.552 Pain in left hip Z79.891 [facility] (current) use of opiate analgesic Office Visit 11/21/2018 2:00p Main Office as Michel Souza G89.29 Other [...] and somatic dysfunction of pelvic region Z79.891 [facility] (current) use of opiate analgesic F43.12 Post-traumatic stress disorder, chronic Office Visit 11/08/2018 3:30p Main Office as Michel Souza, G89.29 Other chronic Of 12/02/13 DO, MPH pain M54.2 Cervicalgia M99.01 Segmental and somatic dysfunction of cervical region M54.5 Low back pain M99.03 Segmental and somatic dysfunction of lumbar region M54.6 Pain in thoracic spine M99.02 Segmental and somatic dysfunction of thoracic region Z71.89 Other specified counseling Z79.891 [facility] (current) use of opiate analgesic Office Visit 10/19/2018 3:45p Main Office as Michel Souza, G89.29 Other chronic Of 12/02/13 DO, MPH pain M54.2 Cervicalgia M54.5 Low back pain M53.3 Sacrococcygeal disorders, not elsewhere classified M25.551 Pain in right hip M25.552 Pain in left hip Z79.891 [facility] (current) use of opiate analgesic Office Visit 09/19/2018 9:15a Main Office as Michel Souza, G89.29 Other [...] hip M25.552 Pain in 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 M99.05 Segmental [...] and somatic dysfunction of pelvic region 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 Office Visit 07/20/2018 4:00p Main Office as Michel Souza G89.29 Other chronic Of 12/02/13 DO, MPH pain M54.2 Cervicalgia M54.6 Pain in thoracic spine M54.5 Low back pain F43.12 Post-traumatic stress disorder, chronic F41.1 Generalized anxiety disorder 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 Office Visit 06/20/2018 4:15p Main Office as Michel Souza G89.29 Other [...] and somatic dysfunction of pelvic region Z79.891 [facility] (current) use of opiate analgesic Office Visit 05/19/2018 4:00p Main Office as Michel Souza G89.29 Other chronic Of 12/02/13 DO, MPH pain M54.5 Low back pain M25.561 Pain in right knee M25.562 Pain in left knee F43.12 Post-traumatic stress disorder, chronic F41.1 Generalized anxiety disorder 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 Office Visit 05/05/2018 3:15p Main Office as Michel Souza G89.29 Other chronic Of 12/02/13 DO, MPH pain M25.562 Pain in left knee M25.561 Pain in right knee M54.5 Low back pain F43.12 Post-traumatic stress disorder, chronic F41.1 Generalized anxiety disorder Z79.891 [facility] (current) use of opiate analgesic Office Visit 04/22/2018 9:30a Main Office as Michel Souza G89.29 Other chronic Of 12/02/13 DO, MPH pain M25.562 Pain in left knee M25.561 Pain in right knee M54.5 Low back pain 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 Office Visit 03/29/2018 3:45p Main Office as Michel Souza G89.29 Other chronic Of 12/02/13 DO, MPH pain M25.562 Pain in left knee M25.561 Pain in right knee M54.5 Low back pain F43.12 Post-traumatic stress disorder, chronic F41.1 Generalized anxiety disorder 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 Office Visit 03/14/2018 9:45a Main Office as Michel Souza G89.29 Other chronic Of 12/02/13 DO, MPH pain M25.562 Pain in left knee M25.561 Pain in right knee M54.5 Low back pain F43.12 Post-traumatic stress disorder, chronic F41.1 Generalized anxiety disorder Z71.89 Other specified counseling 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 Office Visit 02/22/2018 2:30p Main Office as Michel Souza G89.29 Other chronic Of 12/02/13 DO, MPH pain M54.5 Low back pain M25.561 Pain in right knee M25.562 Pain in left knee F43.12 Post-traumatic stress disorder, chronic F41.1 Generalized anxiety disorder Z71.89 Other specified counseling 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 Office Visit 02/08/2018 2:45p Main Office as Michel Souza G89.29 Other chronic Of 12/02/13 DO, MPH pain M54.5 Low back pain M25.561 Pain in right knee M25.562 Pain in left knee F43.12 Post-traumatic stress disorder, chronic F41.1 Generalized anxiety disorder Z79.891 [facility] (current) use of opiate analgesic Office Visit 01/25/2018 2:45p Main Office as Michel Souza G89.29 Other chronic Of 12/02/13 DO, MPH pain M54.5 Low back pain M25.561 Pain in right knee M25.562 Pain in left knee F43.12 Post-traumatic stress disorder, chronic F41.1 Generalized anxiety disorder Z79.891 [facility] (current) use of opiate analgesic 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 Office Visit 01/11/2018 11:15a Main Office as Michel Souza G89.29 Other chronic Of 12/02/13 DO, MPH pain M54.5 Low back pain M25.561 Pain in right knee M25.562 Pain in left knee R53.83 Other fatigue 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 Office Visit 12/10/2017 2:30p Main Office as Michel Souza G89.29 Other chronic Of 12/02/13 DO, MPH pain M54.5 Low back pain M51.36 Other intervertebral disc degeneration, lumbar region M25.561 Pain in right knee M25.562 Pain in left knee R53.83 Other fatigue F17.210 Nicotine dependence, cigarettes, uncomplicated 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 Office Visit 11/08/2017 2:45p Main Office as Michel Souza G89.29 Other chronic Of 12/02/13 DO, MPH pain M54.5 Low back pain M51.36 Other intervertebral disc degeneration, lumbar region M25.561 Pain in right knee M25.562 Pain in left knee F43.12 Post-traumatic stress disorder, chronic Z79.891 [facility] (current) use of opiate analgesic Office Visit 10/20/2017 4:00p Main Office as Michel Souza G89.29 Other chronic Of 12/02/13 DO, MPH pain M54.5 Low back pain M51.36 Other intervertebral disc degeneration, lumbar region M25.562 Pain in left knee M25.561 Pain in right knee F41.1 Generalized anxiety disorder 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 Office Visit 09/21/2017 11:45a Main Office as Michel Souza G89.29 Other chronic Of 12/02/13 DO, MPH pain M51.36 Other intervertebral disc degeneration, lumbar region M54.5 Low back pain 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 L30.8 Other specified dermatitis Office Visit 09/02/2017 3:30p Main Office as Michel Souza G89.29 Other chronic Of 12/02/13 DO, MPH pain M54.5 Low back pain M51.36 Other intervertebral disc degeneration, lumbar region M25.561 Pain in right knee M25.562 Pain in left knee F41.1 Generalized anxiety disorder 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 Continue current medical pain management.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New Labs:Urine Drug Screen, Ordered: 01/31/19Comments:Urine drug screen sample taken. Rapid Point of Care Cup was reviewed in office with patient. Will send out UDT Rapid to [facility] lab for confirmation testing. Urine Drug Testing (UDT) was done today to monitor opiate use and to monitor possible use of illicit substances. I will discuss the results at the next appointment from the [facility] lab.The following tests were ordered:6 AM, AMPH, MALINI, CLIFFORD, BUP, CARIS, COCM, COT, ETG, FENT, MCSHSG, OPI, OXY, PCP, TAPEN, XTSY, ZOLP. A urine drug test (UDT) was ordered for this patient and collected on site today. Creatinine has been orderedas well for specimen validity, not for kidney [...] controlled substances and is considered standard of care.AllComments:All above symptoms and complaints discussed as well [...] maintaining satisfactory side effect profile and minimizing nursing home end-organ damage. Activity as toleratedContinue with PCP
--- OUTSIDE RECORDS SUMMARY | 2019-02-03 08:22 | XMS REPORT | Continuity of Care Document ---
:1985 External Reference #:[id number] Author Name Angela Skaggs O.D. Address [address] [place] [address] Care Team Providers Name Role Phone Angela Skaggs O.D. Care Team Information [employer] Unavailable Payers Date Identification Numbers Payment Provider Subscriber Policy Number: [id number] Javier Kitchen PayID: [id number] [address] [place] [address] Policy Number: [id number] [facility] Medicaid JEAN PIERRE Kitchen PayID: [id number] [address] [place] [address] Advance Directives Description No Information Available Problems Date Description Provider Status Onset: Schizophrenia Active Onset: Attention deficit hyperactivity Active disorder Onset: 08/15/2015 Seizure disorder Angela Skaggs O.D. Active Note: stress induced - associated with schizophrenic symptoms Onset: 08/15/2015 Superficial punctate keratitis Angela Skaggs O.D. 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 times a day Erythromycin 01/20/ Active Ointment 5mg/GM 1Tubes apply thin S05.01xA Angela Porras 2018 strip to [place], right eye O.D. 2-3 times a day Singulair 00// Active Unknown 0000 Albuterol / Active Unknown Sulfate 0000 Gabapentin / Active Capsules 300mg Unknown 0000 Quetiapine / Active Tablets 100mg Unknown Fumarate 0000 Meloxicam / Active Tablets 7.5mg take 1 Unknown 0000 tablet by mouth once daily as directed Tobramycin-Dex 08/14/ Hx Suspension 0.3-0.1% 1units 1 drop Angela Porras amethasone 2015 - every 4 [place], 01/12/ hours O.D. 2019 right eye Trazodone HCL / Hx Tablets 100mg Unknown 0000 - 2018 Risperidone 00/00/ Hx Unknown M-Tab 0000 - 2018 Alprazolam 00/00/ Hx Unknown 0000 - 2018 Hydrocodone 00/00/ Hx Unknown Bitartrate/Ferdinand 0000 - taminophen 2018 Immunizations Description No Information Available Vital Signs Description No Information Available Results Description No Information Available Procedures Date Code Description Status 08/15/2015 00505 New Patient Intermediate Exam Completed Encounters Description No Information Available Plan of Treatment 01/20/2019 - Angela SilvaSaad Skaggs, O.D.S05.01xA Injury of conjunctiva and corneal abrasion without foreign bNew Medication:Polytrim 04321-2.1 Unit/ML-% - 1 drop right eye three times a dayErythromycin 5 mg/GM - apply thin strip to right eye 2-3 times a dayComments:There is a scratch on the surface of your right eye. It will heal on it's own. Use artificial tears as needed to help with irritation. start polytrim drops 3 times a day in the right eyestart erythromycin ointment 2-3 times a day in the right eyeFollow up:tomorrow
--- OUTSIDE RECORDS SUMMARY | 2019-02-03 08:22 | XMS REPORT | Continuity of Care Document ---
:1985 External Reference #:[id number] Author Name Michel Souza DO, MPH Address [address], [address] [place] [address] Care Team Providers Name Role Phone Ellis Hooker M.D. 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 Cathy Kitchen PayID: [id number] [employer] [address] [place] [address] Advance Directives Description No Information Available Problems [...] Denies Drug Use Smoking Status Reviewed: 01/20/19 Patient is a current smoker, smokes every day Allergies, Adverse Reactions, Alerts Date Description Reaction Status Severity Comments 08/17/2017 Amoxicillin Anaphylaxis Active 08/17/2017 Lorazepam Altered heart rate Active 08/17/2017 Lexapro Altered Heart Rate Active Medications Medication Date Status Form Strength Qnty SIG Indications Ordering Provider Mobhosea 12/13/ Active Tablets 7.5mg 30tabs si by Harley 2018 mouth Michel, every day DO, MPH as directed Hydromorphone 09/21/ Active Tablets 2mg 90tabs si by GIORGI Souza 2016 mouth Michel, every 8 DO, MPH hours as directed chronic pain patient Melatonin 00/ Active Capsules 10mg 1 by mouth Unknown 0000 at bedtime Benadryl / Active Capsules 25mg as needed Unknown Allergy [...] 09/21/ Hx Ointment 2% 1units Sig: as Harley, 2016 - Directed Michel, DO, MPH 2017 Xanax 09/02/ Hx Tablets 2mg 90tabs si Harley 2016 - every 8 Michel, 01/11/ hours DO, MPH 2017 dosage change Hydrocodone-Ferdinand 08/17/ Hx Tablets 7.5-325mg 90tabs 1 by mouth shahid Souzainophen 2016 - every 8 Michel, 09/21/ hours [...] every 8 2018 hours as directed Xanax / Hx Tablets 0.5mg si by Unknown 0000 - mouth 09/19/ every day 2018 as directed Abilify / Hx Tablets 5mg si by Unknown 0000 - mouth daily 2019 Seroquel / Hx Tablets 50mg 1 by mouth Souza, 0000 - at night Michel, as DO, MPH 2019 directed Immunizations Description No Information Available Vital Signs Date Vital Result Comment 01/20/2019 9:32am BP Systolic 128 mmHg BP [...] Available Procedures Date Code Description Status 12/21/2018 08548 Brief Emotional/Behav Assessment W/ Scoring Doc Per Completed Standard Inst 11/21/2018 27086 Omt 5-6 Body Regions Completed 11/08/2018 25411 Omt 3-4 Body Regions Completed 09/19/2018 84384 Omt 5-6 Body Regions Completed 08/19/2018 43269 Omt 5-6 Body Regions Completed 06/20/2018 14706 Omt 5-6 Body Regions Completed 12/10/2017 10280 Therapeutic, Prophylactic Or Diagnostic Injection Subq/Im Completed Encounters Type Date Location Provider Dx Diagnosis Office Visit 12/21/2018 Main Office as Of Michel Souza DO G89.29 Other chronic pain 2:30p 12/02/13 MPH M54.5 Low back pain M54.6 Pain in thoracic spine M54.2 Cervicalgia Z13.31 Encounter for screening for depression 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 Office Visit 12/05/2018 3:15p Main Office as Michel Souza G89.29 Other chronic Of 12/02/13 DO, MPH pain M54.5 Low back pain M54.6 Pain in thoracic spine M54.2 Cervicalgia M25.552 Pain in left hip Z79.891 detention (current) use of opiate analgesic Office Visit [...] and somatic dysfunction of pelvic region 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 F43.12 Post-traumatic [...] thoracic region Z71.89 Other specified counseling 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 Office Visit 10/19/2018 3:45p Main Office as Michel Souza, G89.29 Other chronic Of 12/02/13 DO, MPH pain M54.2 Cervicalgia M54.5 Low back pain M53.3 Sacrococcygeal disorders, not elsewhere classified M25.551 Pain in right hip M25.552 Pain in left hip 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 Office Visit [...] hip M25.552 Pain in left hip 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 M99.05 Segmental [...] and somatic dysfunction of pelvic region Z79.891 detention (current) use of opiate analgesic Office Visit 07/20/2018 4:00p Main Office as Michel Souza, G89.29 Other chronic Of 12/02/13 DO, MPH pain M54.2 Cervicalgia M54.6 Pain in thoracic spine M54.5 Low back pain F43.12 Post-traumatic stress disorder, chronic F41.1 Generalized anxiety disorder Z79.891 detention (current) use of opiate analgesic Office Visit [...] and somatic dysfunction of pelvic region 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 Office Visit 05/19/2018 4:00p Main Office as Michel Souza G89.29 Other chronic Of 12/02/13 DO, MPH pain M54.5 Low back pain M25.561 Pain in right knee M25.562 Pain in left knee F43.12 Post-traumatic stress disorder, chronic F41.1 Generalized anxiety disorder 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 Office Visit 05/05/2018 3:15p Main Office as Michel Souza G89.29 Other chronic Of 12/02/13 DO, MPH pain M25.562 Pain in left knee M25.561 Pain in right knee M54.5 Low back pain F43.12 Post-traumatic stress disorder, chronic F41.1 Generalized anxiety disorder 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 Office Visit 04/22/2018 9:30a Main Office as Michel Souza G89.29 Other chronic Of 12/02/13 DO, MPH pain M25.562 Pain in left knee M25.561 Pain in right knee M54.5 Low back pain 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 Office Visit 03/29/2018 3:45p Main Office as Michel Souza G89.29 Other chronic Of 12/02/13 DO, MPH pain M25.562 Pain in left knee M25.561 Pain in right knee M54.5 Low back pain F43.12 Post-traumatic stress disorder, chronic F41.1 Generalized anxiety disorder 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 Office Visit 03/14/2018 9:45a Main Office as Michel Souza G89.29 Other chronic Of 12/02/13 DO, MPH pain M25.562 Pain in left knee M25.561 Pain in right knee M54.5 Low back pain F43.12 Post-traumatic stress disorder, chronic F41.1 Generalized anxiety disorder Z71.89 Other specified counseling 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 Office Visit 02/22/2018 2:30p Main Office as Michel Souza G89.29 Other chronic Of 12/02/13 DO, MPH pain M54.5 Low back pain M25.561 Pain in right knee M25.562 Pain in left knee F43.12 Post-traumatic stress disorder, chronic F41.1 Generalized anxiety disorder Z71.89 Other specified counseling 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 Office Visit 02/08/2018 2:45p Main Office as Michel Souza G89.29 Other chronic Of 12/02/13 DO, MPH pain M54.5 Low back pain M25.561 Pain in right knee M25.562 Pain in left knee F43.12 Post-traumatic stress disorder, chronic F41.1 Generalized anxiety disorder Z79.891 detention (current) use of opiate analgesic Office Visit 01/25/2018 2:45p Main Office as Michel Souza G89.29 Other chronic Of 12/02/13 DO, MPH pain M54.5 Low back pain M25.561 Pain in right knee M25.562 Pain in left knee F43.12 Post-traumatic stress disorder, chronic F41.1 Generalized anxiety disorder 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 Office Visit 01/11/2018 11:15a Main Office as Michel Souza G89.29 Other chronic Of 12/02/13 DO, MPH pain M54.5 Low back pain M25.561 Pain in right knee M25.562 Pain in left knee R53.83 Other fatigue Z79.891 detention (current) use of opiate analgesic Office Visit 12/10/2017 2:30p Main Office as Michel Souza G89.29 Other chronic Of 12/02/13 DO, MPH pain M54.5 Low back pain M51.36 Other intervertebral disc degeneration, lumbar region M25.561 Pain in right knee M25.562 Pain in left knee R53.83 Other fatigue F17.210 Nicotine dependence, cigarettes, uncomplicated 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 Office Visit 11/08/2017 2:45p Main Office as Michel Souza G89.29 Other chronic Of 12/02/13 DO, MPH pain M54.5 Low back pain M51.36 Other intervertebral disc degeneration, lumbar region M25.561 Pain in right knee M25.562 Pain in left knee F43.12 Post-traumatic stress disorder, chronic 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 Office Visit 10/20/2017 4:00p Main Office as Michel Souza G89.29 Other chronic Of 12/02/13 DO, MPH pain M54.5 Low back pain M51.36 Other intervertebral disc degeneration, lumbar region M25.562 Pain in left knee M25.561 Pain in right knee F41.1 Generalized anxiety disorder 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 Office Visit 09/21/2017 11:45a Main Office as Michel Souza G89.29 Other chronic Of 12/02/13 DO, MPH pain M51.36 Other intervertebral disc degeneration, lumbar region M54.5 Low back pain 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1 Generalized anxiety disorder Z71.89 Other specified counseling Z79.891 detention (current) use of opiate analgesic Plan of Treatment Future Appointment(s):01/31/2019 3:30 pm - Michel Souza DO, MPH at Main Office as Of 12/02/1402 - Michel Souza DO, MPHAllComments:All above symptoms and complaints discussed as well [...] maintaining satisfactory side effect profile and 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 Activity as toleratedContinue with PCP
--- OUTSIDE RECORDS SUMMARY | 2019-02-03 08:22 | XMS REPORT | Continuity of Care Document ---
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 Jeny Hawley PA Primary Care Physician Unavailable Payers Date Identification Numbers Payment Provider Subscriber Expires: 2008 Policy Number: [id number] Medicaid Cathy Rubi [place] PayID: [id number] [address] [place] [address] Policy Number: [id number] [place] Medicaid Cathy Rubi [place] PayID: [id number] [address] [place] [address] Advance Directives Type Date Description Status Comment Resuscitation 01/17/2019 Resuscitation status Current and Verified Problems Date Description Provider Status Onset: 02/07/2018 Adjustment disorder with mixed emotional Jeny Hawley PA Active features Onset: 02/07/2018 Migraine with typical aura Jeny Hawley PA Active Onset: 02/07/2018 Asthma without status asthmaticus Jeny Hawley PA Active Onset: 02/07/2018 Tobacco use Jeny Hawley PA Active Family History Description No Information Available Social History Type Date Description Comments Sex Unknown Lives With Grandmother Zita Lives With Girlfriend Diet Patient follows no dietary restrictions Occupation Disabled Syncope and mental health ADL's/IADL's Dependent with all ADL's Girlfiriend and grandmother take care of her. Tobacco Use Start: Unknown Current Cigarette Smoker 5-10 Cigarettes Daily ETOH Use Denies alcohol use Tobacco Use Start: Unknown Heavy tobacco smoker (more than 10 cigarettes/day) Smoking Status Reviewed: 01/17/19 Heavy tobacco smoker (more than 10 cigarettes/day) Enjoy Exercising Patient enjoys exercising Exercises daily Allergies, Adverse Reactions, Alerts Date Description Reaction Status Severity Comments 02/07/2018 Amoxicillin Active 02/07/2018 Lexapro Active 02/07/2018 Lorazepam Active 02/07/2018 Onion Active 02/07/2018 Dust Active 02/07/2018 Seasonal Active Medications Medication Date Status Form Strength Qnty SIG Indications Ordering Provider Montelukast 10/04/20 Active Tablets 10mg 30tab 1 by mouth Paul Sodium 18 s every day MD Yusra Ventolin HFA 02/08/20 Active Aerosol 108(90Bas 18gm 2 puffs J45.909 Paul 18 e) every 4 MD Yusra mcg/Act hours as needed for cough and wheeze Hydromorphone Active Tablets 2mg 3 times Souza, HCL 00 daily MD Michel Meloxicam Active Tablets 7.5mg take 1 Souza, 00 tablet by MD Michel mouth daily as directed . Max Of 1 Tab/Day Gabapentin Active Capsules 300mg 180ca 2 by mouth Eva Miller ps three times MD Yusra a day Benadryl Active Capsules 25mg 2 tab by Unknown Allergy 00 mouth every 6 hours as needed Melatonin ER Active Tablets ER 5mg 30tab 1 by mouth Paul 00 s every night MD Yusra at bedtime Quetiapine Active Tablets 50mg 60tab 1 tab by Carlos Miller 00 s mouth twice MD Yusra a day Quetiapine 01/18/20 Hx Tablets ER 200mg 90tab 1 tab by F43.12 Paul, Fumarate ER 19 - 24HR s mouth three MD Yusra 01/18/20 times a day 19 Ondansetron 06/21/20 Hx Tablets 8mg 14tab 1 tab by R11.0 Sabrina, HCL 18 - s mouth every Eloise, 07/01/20 6 hours M.D. 18 Famotidine 06/17/20 Hx Tablets 20mg 1 by mouth Unknown 18 - twice a day 06/22/20 18 Prednisone 06/17/20 Hx Tablets 20mg take 2 Unknown 18 - tablets 06/22/20 daily for 5 18 days. Promethazine 05/16/20 Hx Tablets 25mg 30tab Take 1 Sabrina, HCL 18 - s tablet by Eloise, Unknown mouth every M.D. 6 hours as needed for nausea and vomiting Erythromycin 05/15/20 Hx Tablets 500mg 30tab 1 po tid Olu Miller 18 - s MD Yusra Unknown Colace 05/02/20 Hx Capsules 100mg 90cap 1 tab by K59.00 Sabrina, 18 - s mouth every Eloise, 12/02/19 day as M.D. 19 needed Polyethylene 05/02/20 Hx Powder 3350NF 255gm take 17 K59.00 Sabrina, Glycol 3350 18 - gram (0.2 Eloise, Unknown gram/kg) by M.D. mouth daily mixed with 4 to 8 ounces of fluid for constipatio n Ondansetron 04/29/20 Hx Tablets 8mg 30tab 1 tab by Sabrina, HCL 18 - s mouth every Eloise, 05/03/20 6 hours M.D. 18 Ibuprofen 03/08/20 Hx Tablets 600mg 90tab take 1 S80.12xA Sabrina, 18 - s tablet by Eloise, Unknown mouth 3 M.D. times per day with food or milk as needed for pain Crutches-Alumi 03/08/20 Hx Misc 1pr 1 pair as S80.12xA Sabrina, num 18 - directed. Eloise 03/13/20 M.DSaad 18 Elastic 03/08/20 Hx Misc 6" 1unit use as S80.12xA Sabrina, Bandage 6" 18 - s directed. Eloise 03/13/20 M.D. 18 Nicoderm CQ 03/08/20 Hx Patches 21mg/24HR 28uni apply patch F17.210 Sabrina , 18 - 24HR ts to skin Deonte Navas daily. M.D. remove each night at bedtime and reapply in the am. Nebulizer 03/08/20 Hx Kit 1unit use w neb J45.990 Sabrina, Kit/Tubing/Sarah 18 - s as directed susana Navas 03/09/20 M.D. 18 Albuterol 03/08/20 Hx Nebulizer 1.25mg/3M 75ml inhale Sabrina, Sulfate 18 - L contents of Deonte Navas 1 vial by M.D. mouth in nebulizer every 4 hours if neede Alprazolam Hx Tablets 1mg 45tab 1 tab by Sabrina, 00 - s mouth three Eloise, 06/21/20 times a day M.DSaad 18 reference #:[id number] Risperidone Hx Tablets 2mg 30tab 1 tab by Sabrina, 00 - s mouth every Eloise, day M.Gordy Clonidine HCL Hx Tablets 0.5mg 3 times Erick, 00 - daily Lena 12/02/19 V., EXERCISE PLANNER 19 Aripiprazole Hx Tablets 5mg take 1 Erick, 00 - tablet by Lena 12/02/19 mouth once V., EXERCISE PLANNER 19 daily Alprazolam Hx Tablets 1mg 1 tab q am Erick, - 11/02 q pm [place] 09/21/20 V., EXERCISE PLANNER 18 Quetiapine Hx Tablets 100mg 30tab 1 tab by F43.12 Carlos Miller 00 - s mouth every MD Yusra 01/18/20 morning 19 Immunizations Description No Information Available Vital Signs Date Vital Result Comment 01/17/2019 3:51pm Weight 119.25 lb 12/12/2018 9:17am BP Systolic 118 mmHg BP Diastolic 68 mmHg Body Temperature 96.8 F Heart Rate 79 /min Respiratory Rate 16 /min Height 68 inches 5'8" Weight 128.00 lb BMI (Body Mass Index) 19.5 kg/m2 BSA (Body Surface Area) 1.69 m2 [place] body weight in kilograms 63 kg O2 % BldC Oximetry 98 % 12/02/2018 2:44pm Height 68 inches 5'8" Weight 121.00 lb BMI (Body Mass Index) 18.4 kg/m2 BSA (Body Surface Area) 1.65 m2 [place] body weight in kilograms 63 kg 06/21/2018 10:54am BP Systolic Sitting Right Arm 140 mmHg BP Diastolic Sitting Right Arm 62 mmHg Body Temperature 98.5 F Heart Rate 81 /min Weight 150.12 lb O2 % BldC Oximetry 96 % 06/20/2018 11:29am BP Systolic Sitting Left Arm 100 mmHg BP Diastolic Sitting Left Arm 52 mmHg Heart Rate 57 /min Respiratory Rate 16 /min Height 68 inches 5'8" Weight 148.00 lb BMI (Body Mass Index) 22.5 kg/m2 BSA (Body Surface Area) 1.80 m2 [place] body weight in kilograms 63 kg 05/02/2018 12:55pm BP Systolic 116 mmHg BP Diastolic 66 mmHg Body Temperature 98.1 F Heart Rate 94 /min Respiratory Rate 18 /min Height 68 inches 5'8" Weight 160.00 lb BMI (Body Mass Index) 24.3 kg/m2 BSA (Body Surface Area) 1.86 m2 [place] body weight in kilograms 63 kg O2 % BldC Oximetry 97 % 03/08/2018 1:13pm BP Systolic Sitting Right Arm 120 mmHg BP Diastolic Sitting Right Arm 52 mmHg Body Temperature 98.0 F Heart Rate 76 /min Weight 157.12 lb O2 % BldC Oximetry 96 % 02/07/2018 2:59pm BP Systolic Sitting Right Arm 110 mmHg BP Diastolic Sitting Right Arm 60 mmHg Body Temperature 97.3 F Heart Rate 68 /min Height 68 inches 5'8" Weight 159.12 lb BMI (Body Mass Index) 24.2 kg/m2 BSA (Body Surface Area) 1.85 m2 [place] body weight in kilograms 63 kg O2 % BldC Oximetry 97 % Results Test Date Facility Test Result H/L Range Note Urinalysis Profile 01/14/2019 [facility] Urine Color Yellow [phone] Urine Appearance Cloudy Urine Specific [place] 1.021 N 1.010-1.030 Urine pH 6.0 N 5-9 Urine Urobilinogen Negative Negative Urine Ketones 1+ Abnormal Negative Urine Protein Negative Negative Urine Leukocytes Negative Negative Urine Blood Negative Negative * * Abnormal Negative 1 Urine Nitrite Negative Negative Urine Bilirubin Negative Negative Urine Glucose Negative Negative Urine Drug 01/14/2019 [facility] Amphetamine Ur None Detected None Detect SCR ED & [phone] Screen Pain [facility] Barbiturates Urine Screen None Detected None Detect Benzodiazepine Urine Screen None Detected None Detect Urine Cannabinoids Screen Presumptive Posi <SEE NOTE> Abnormal None Detect 2 Urine Cocaine Screen None Detected None Detect Urine Opiates Screen Presumptive Posi <SEE NOTE> Abnormal None Detect 3 Urine Phencyclidine Screen None Detected None Detect 4 Ua RFX Micro & Culture 11/14/2018 [facility] Urine Color YELLOW Yellow [address] [place] [address] [phone] Urine Clarity CLEAR Clear Urine Glucose - Dipstick NEGATIVE mg/dL Negative Urine Bilirubin - Dipstick NEGATIVE Negative Urine Ketone NEGATIVE mg/dL Negative Urine Specific [place] 1.010 N 1.010-1.030 Urine Blood NEGATIVE Negative Urine PH 6.5 N 6.5-7.5 Urine Protein - Dipstick NEGATIVE mg/dL Negative Urine Urobilinogen - Dipstick 0.2 E.U./dL N 0.2-1.0 Urine Nitrite - Dipstick NEGATIVE Negative Urine Leuk Esterase NEGATIVE Negative Source: URINE, CLEAN CAT <SEE NOTE> 6 Drugs Of 11/14/2018 [facility] Amphetamines (Urine) Negative Abuse-Urine Screen [address] [place] [address] [phone] Barbiturates (Urine) Negative Benzodiazepines (Urine) Negative Cannabinoids (Urine) POSITIVE Abnormal Cocaine Metabolite (Urine) Negative Methadone (Urine) Negative Opiates (Urine) POSITIVE Abnormal Urine Cutoffs * 7 Laboratory test 11/14/2018 [facility] Salicylate 7.2 mg/dL N 2.8-20.0 [address] [place] [address] [phone] Slide Review 06/21/2018 [facility] [address] Slide Review (SEE 9, 10 [address] [facility] NOTE) [place], [place] [id number] [phone] LDL Cholesterol [facility]/21/[address] [facility] [address] Cholesterol 225 mg/dL High < 200 11 Profile [address] [place] [address] [phone] Triglycerides 90 mg/dL <150 12 HDL Cholesterol 42 mg/dL >40 13 LDL-Cholesterol 165 mg/dL < 100 14 Hepatitis 06/21/2018 [facility] [address] Hepatitis A Negative Negative Evaluation [address] [facility] Antibody IgM [place], [place] [id number] [phone] HBsAg Screen [Ref Lab] Negative Negative Hepatitis B Core IgM Negative Negative HCV Signal/Cutoff ratio < 0.1 s/corat 0.0-0.9 15 Comprehensive Metabolic 06/21/2018 [facility] [address] Glucose 126 mg/dL High 74-[address] [place] [address] [id number] [phone] BUN 13 mg/dL N 7-18 Creatinine 0.7 mg/dL N 0.6-1.3 Glom Filtration Rate, Estimate >60 mL/min >60 If >60 mL/min >60 16 BUN/Creat 18.5 ratio Sodium 140 mmol/L N 136-145 Potassium 3.9 mmol/L N 3.5-5.1 Chloride 107 mmol/L N 98-107 Carbon Dioxide 24 mmol/L N 21-32 Anion Gap 9 mEq/L N 8-16 Calcium 8.9 mg/dL N 8.5-10.1 Total Protein 7.9 g/dL N 6.4-8.2 Albumin 4.0 g/dL N 3.4-5.0 Globulin 3.9 g/dL N 1.9-4.3 Alb/Glob 1.0 ratio Bilirubin,Total 0.5 mg/dL N 0.2-1.0 Sgot/Ast 24 U/L N 15-37 SGPT/Alt 59 U/L N 12-78 Alkaline Phosphatase 73 U/L N 45-117 CBS W/Automated Diff 06/21/[address] [facility] [address] White Blood 9.6 K/uL N 3.1-10.[address] [place] [address] [phone] Red Blood Count 4.31 M/uL N 3.90-5.40 Hemoglobin 13.9 gm/dL N 11.6-15.8 Hematocrit 40.4 % N 36.0-46.1 Mean Cell Volume 93.7 fl N 80.9-99.0 Mean Corpuscular HGB 32.3 pg N 25.9-32.7 Mean Corpuscular HGB Conc 34.4 g/dL High 30.8-34.3 Platelet Count 199 K/uL N 155-360 Red Cell Distri Width SD 43.0 fl N 3-47 Red Cell Distri Width %CV 13.0 % N 11.7-14.4 Mean Platelet Volume 10.8 fL N 8.9-12.4 Neut% 87.6 % High 40.4-72.8 Lymph % 10.2 % Low 20.0-42.0 [facility] [place] % 2.1 % Low 4.3-13.2 Eo% 0.0 % N 0.0-6.6 Bas% 0.1 % N 0.0-1.1 Neut# 8.42 K/uL High 1.8-7.0 Lymph # 0.98 K/uL Low 1.0-4.0 [facility] [place] # 0.20 K/uL Low 0.3-0.9 Eos # 0.00 K/uL N 0.0-0.5 Baso # 0.01 K/uL N 0.0-0.1 1 *Ascorbic acid is present which may interfere with detection of blood. 2 Presumptive Positive Presumptive positive results are unconfirmed. 3 Presumptive Positive Presumptive positive results are unconfirmed. 4 The urine specimen was tested at the listed cutoffs: Drug class test level (ng/mL) Amphetamines 500 Barbiturates 200 Benzodiazepine metabolites 200 Cocaine metabolites 150 Cannabinoids 50 Opiates 300 Pcp 25 Specimen was received without chain of custody. Results should be used for medical purposes only. 5 MENTAL HEALTH EVALUATION 6 URINE, CLEAN CATCH 7 URINE SPECIMENS ARE SCREENED AT THE LISTED CUTOFFS DRUG CLASS INITIAL TEST LEVEL Amphetamines 1000 ng/mL Barbiturates 200 ng/mL Benzodiazepines 200 ng/mL Cannabinoids 50 ng/mL Cocaine Metabolite 300 ng/mL Methadone 300 ng/mL Opiates 300 ng/mL Any PRESUMPTIVE POSITIVE findings are UNCONFIRMED. Confirmatory testing is suggested if findings are unexpected. Please contact laboratory if confirmatory testing is desired. SPECIMENS ARE HELD FOR 72 HOURS. 8 THERAPEUTIC RANGE: 15-30 mg/dL POTENTIAL TOXICITY VARIES WITH TIME FROM INGESTION. PLEASE CONSULT APPROPRIATE NOMOGRAM. 9 R41.3, R53.82, R55, Z13.220 10 Instrument flagged sample for slide review. Less than 10% Bands seen, no other immature WBC's seen. RBC morphology essentially normal. Platelet estimate=NORMAL 11 Reference Guidelines*: Desirable: ........... < 200 mg/dL Borderline High: ..... 200-239 mg/dL High: ................ >=240 mg/dL * The National Cholesterol Education Program (NCEP) 12 Reference Guidelines*: Normal: ............. < 150 mg/dL Borderline High: .... 150-199 mg/dL High: ............... 200-499 mg/dL Very High: .......... > 500 mg/dL * Source: National Cholesterol Education Program (NCEP) 13 Reference Guidelines*: Low HDL: ..... < 40 mg/dL Normal: ..... 40-60 mg/dL Desirable: ... > 60 mg/dL *The National Cholesterol Education Program(NCEP) 14 Reference Guidelines*: Optimal:........... <100 mg/dL Near Optimal....... 100-129 mg/dL Borderline High.... 130-159 mg/dL High............... 160-189 mg/dL Very High.......... >=190 mg/dL * Source: National Cholesterol Education Program (NCEP) 15 INFCE Result Units: s/co ratio Negative: < 0.8 Indeterminate: 0.8 - 0.9 Positive: > 0.9 The CDC recommends that a positive HCV antibody result be followed up with a HCV Nucleic Acid Amplification test (269919). Performed at: - [facility] [id number] Brim Plater: Tabby Wood MD, Phone: [phone] Note: Persistent reduction for 3 months or more in an eGFR <60 mL/min/1.73 m2 defines CKD. Patients with eGFR values >/=60 mL/min/1.73 m2 may also have CKD if evidence of persistent proteinuria is present. The original MDRD equation for estimated GFR is not valid for patients less than 18 years of age. Additional information may be found at www.kdoqi.org. Procedures Date Code Description Status 06/20/2018 52983 EKG-Tracing And Report Completed 02/24/2018 65695 Bronchospasm Provocation Evaluation Multi Spirometric Completed Determinati 02/24/2018 51942 Spirometry Completed Encounters Type Date Location Provider Dx Diagnosis Office Visit 12/12/2018 Jeny Landeros PA F33.1 Major depressive 9:15a [address] disorder, recurrent, moderate F43.12 Post-traumatic stress disorder, chronic R55 Syncope and collapse Office Visit 12/02/2018 2:30p Jeny Landeros F43.[address] PA disorder with mixed anxiety and depressed mood Office Visit 06/21/2018 11:00a Family Jeny Manjarrez, Z91.018 Allergy to other [address] PA foods R11.0 Nausea Office Visit 06/20/2018 11:30a Cardiology Office Olaf Nolasco MD R55 Syncope and collapse F17.210 Nicotine dependence, cigarettes, uncomplicated Office Visit 05/02/2018 1:00p Family Saurabh Hawley, F17.210 Nicotine [address] HIMANSHU Andrew dependence, cigarettes, uncomplicated K59.00 Constipation, unspecified R11.0 Nausea R55 Syncope and collapse G43.109 Migraine with aura, not intractable, w/o status migrainosus Office Visit 03/08/2018 1:30p [facility] Jeny Manjarrez R55 Syncope and Toi DOWNS collapse G43.109 Migraine with aura, not intractable, w/o status migrainosus S80.12xA Contusion of left lower leg, initial encounter J45.990 Exercise induced bronchospasm F17.210 Nicotine dependence, cigarettes, uncomplicated Office Visit 02/07/2018 2:45p [facility] Jeny Manjarrez, R55 Syncope and Toi DOWNS collapse F43.23 Adjustment disorder with mixed anxiety and depressed mood G43.109 Migraine with aura, not intractable, w/o status migrainosus Z72.0 Tobacco use J45.909 Unspecified asthma, uncomplicated Z13.220 Encounter for screening for lipoid disorders Office Visit 06/07/2008 11:00a Orthopaedic Office Suzanne Harris 719.46 Pain Joint MD Jaky Lower Leg 844.9 Sprains & Strains Knee & Leg Unspec Plan of Treatment 01/17/2019 - Jeny Hawley, PAF43.12 Post-traumatic stress disorder, chronicNew Medication:Quetiapine Fumarate ER 200 mg - 1 tab by mouth three times a dayComments:Cathy declined any further care from me, as I would not write a letter requesting that her guns be returned to her. She is highly agitated and unable to reason. She left angrily and states she will not return, as She feels betrayed by my refusal to help her.F33.1 Major depressive disorder, recurrent, moderate
--- OUTSIDE RECORDS SUMMARY | 2019-02-03 08:22 | XMS REPORT | Continuity of Care Document ---
:1985 External Reference #:[id number] Author Name Angela Skaggs O.D. Address [address] [place] [address] Care Team Providers Name Role Phone Angela Skaggs O.D. Care Team Information Advice Nurse Unavailable Payers Date Identification Numbers Payment Provider Subscriber Policy Number: [id number] Javier Kitchen PayID: [id number] [address] [place] [address] Policy Number: [id number] [facility] Medicaid JEAN PIERRE Kitchen PayID: [id number] [address] [place] [address] Advance Directives Description No Information Available Problems [...] Use Denies Drug Use Smoking Status Reviewed: 01/21/19 Heavy tobacco smoker (more than 10 cigarettes/day) Allergies, Adverse Reactions, Alerts Date Description Reaction Status Severity Comments 01/20/2019 Lexapro Active Medications Medication Date Status Form Strength Qnty SIG Indications Ordering Provider Polytrim 01/20/ Active Solution 90831-1.1U 10ml 1 drop S05.01xA Angela SilvaSaad 2018 nit/ML-% right eye [place], three O.D. times a day Erythromycin 01/20/ Active Ointment 5mg/GM 1Tubes apply thin S05.01xA Angela SilvaSaad 2018 strip to [place], right eye O.D. 2-3 times a day Singulair // Active Unknown 0000 Albuterol / Active Unknown Sulfate 0000 Gabapentin / Active Capsules 300mg Unknown 0000 Quetiapine / Active Tablets 100mg Unknown Fumarate 0000 Meloxicam / Active Tablets 7.5mg take 1 Unknown 0000 tablet by mouth once daily as directed Tobramycin-Dex 08/14/ Hx Suspension 0.3-0.1% 1units 1 drop Angela Porras amethasone 2015 - every 4 [place], 01/12/ hours O.D. 2019 right eye Trazodone HCL / Hx Tablets 100mg Unknown 0000 - 2018 Risperidone 00/00/ Hx Unknown M-Tab 0000 - 2018 Alprazolam 00/00/ Hx Unknown 0000 - 2018 Hydrocodone /00/ Hx Unknown Bitartrate/[place] 0000 - taminophen 2018 Immunizations Description No Information Available Vital Signs Description No Information Available Results Description No Information Available Procedures Date Code Description Status 08/15/2015 06426 New Patient Intermediate Exam Completed Encounters Description No Information Available Plan of Treatment 01/21/2019 - Angela SilvaSaad Skaggs, O.DSaadS05.01xD Injury of conjunctiva and corneal abrasion without foreign body, right eye, subsequent encounterComments:The scratch on the surface of your eye has healed. You may use artificial tears as needed to help with any irritation. continue ointment and polytrim drops today and tomorrow, then discontinueif your symptoms do not resolve, please call the office to be seenFollow up:as needed
--- OUTSIDE RECORDS SUMMARY | 2019-02-03 08:22 | XMS REPORT | Continuity of Care Document ---
:1985 External Reference #:[id number] Author Name Michel Souza DO, MPH Address [address] [facility] [address] [facility], [address] [place] [address] Care Team Providers Name Role Phone Ellis Hooker M.D. Care Team Information Composition Instructor Unavailable Radha Draper M.D Primary Care Physician Unavailable Payers Date Identification Numbers Payment Provider Subscriber Policy Number: [id number] [facility] Cathy Kitchen PayID: [id number] [employer] [address] [place] [address] Advance Directives Description No Information Available Problems [...] Available Procedures Date Code Description Status 12/21/2018 52812 Brief Emotional/Behav Assessment W/ Scoring Doc Per Completed Standard Inst 11/21/2018 71022 Omt 5-6 Body Regions Completed 11/08/2018 94462 Omt 3-4 Body Regions Completed 09/19/2018 95495 Omt 5-6 Body Regions Completed 08/19/2018 65920 Omt 5-6 Body Regions Completed 06/20/2018 38939 Omt 5-6 Body Regions Completed 12/10/2017 58331 Therapeutic, Prophylactic Or Diagnostic Injection Subq/Im Completed Encounters Type Date Location Provider Dx Diagnosis Office Visit 12/21/2018 Main Office as Of Michel Souza DO G89.29 Other chronic pain 2:30p 12/02/13 MPH M54.5 Low back pain M54.6 Pain in thoracic spine M54.2 Cervicalgia Z13.31 Encounter for screening for depression 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 Office Visit 12/05/2018 3:15p Main Office as Michel Souza G89.29 Other chronic Of 12/02/13 DO, MPH pain M54.5 Low back pain M54.6 Pain in thoracic spine M54.2 Cervicalgia M25.552 Pain in left hip Z79.891 alf (current) use of opiate analgesic Office Visit [...] and somatic dysfunction of pelvic region 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 F43.12 Post-traumatic [...] thoracic region Z71.89 Other specified counseling 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 Office Visit 10/19/2018 3:45p Main Office as Michel Souza, G89.29 Other chronic Of 12/02/13 DO, MPH pain M54.2 Cervicalgia M54.5 Low back pain M53.3 Sacrococcygeal disorders, not elsewhere classified M25.551 Pain in right hip M25.552 Pain in left hip 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 Office Visit [...] hip M25.552 Pain in left hip 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 M99.05 Segmental [...] and somatic dysfunction of pelvic region Z79.891 alf (current) use of opiate analgesic Office Visit 07/20/2018 4:00p Main Office as Michel Souza, G89.29 Other chronic Of 12/02/13 DO, MPH pain M54.2 Cervicalgia M54.6 Pain in thoracic spine M54.5 Low back pain F43.12 Post-traumatic stress disorder, chronic F41.1 Generalized anxiety disorder Z79.891 alf (current) use of opiate analgesic Office Visit [...] and somatic dysfunction of pelvic region 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 Office Visit 05/19/2018 4:00p Main Office as Michel Souza G89.29 Other chronic Of 12/02/13 DO, MPH pain M54.5 Low back pain M25.561 Pain in right knee M25.562 Pain in left knee F43.12 Post-traumatic stress disorder, chronic F41.1 Generalized anxiety disorder 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 Office Visit 05/05/2018 3:15p Main Office as Michel Souza G89.29 Other chronic Of 12/02/13 DO, MPH pain M25.562 Pain in left knee M25.561 Pain in right knee M54.5 Low back pain F43.12 Post-traumatic stress disorder, chronic F41.1 Generalized anxiety disorder 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 Office Visit 04/22/2018 9:30a Main Office as Michel Souza G89.29 Other chronic Of 12/02/13 DO, MPH pain M25.562 Pain in left knee M25.561 Pain in right knee M54.5 Low back pain 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 Office Visit 03/29/2018 3:45p Main Office as Michel Souza G89.29 Other chronic Of 12/02/13 DO, MPH pain M25.562 Pain in left knee M25.561 Pain in right knee M54.5 Low back pain F43.12 Post-traumatic stress disorder, chronic F41.1 Generalized anxiety disorder 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 Office Visit 03/14/2018 9:45a Main Office as Michel Souza G89.29 Other chronic Of 12/02/13 DO, MPH pain M25.562 Pain in left knee M25.561 Pain in right knee M54.5 Low back pain F43.12 Post-traumatic stress disorder, chronic F41.1 Generalized anxiety disorder Z71.89 Other specified counseling 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 Office Visit 02/22/2018 2:30p Main Office as Michel Souza G89.29 Other chronic Of 12/02/13 DO, MPH pain M54.5 Low back pain M25.561 Pain in right knee M25.562 Pain in left knee F43.12 Post-traumatic stress disorder, chronic F41.1 Generalized anxiety disorder Z71.89 Other specified counseling 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 Office Visit 02/08/2018 2:45p Main Office as Michel Souza G89.29 Other chronic Of 12/02/13 DO, MPH pain M54.5 Low back pain M25.561 Pain in right knee M25.562 Pain in left knee F43.12 Post-traumatic stress disorder, chronic F41.1 Generalized anxiety disorder Z79.891 alf (current) use of opiate analgesic Office Visit 01/25/2018 2:45p Main Office as Michel Souza G89.29 Other chronic Of 12/02/13 DO, MPH pain M54.5 Low back pain M25.561 Pain in right knee M25.562 Pain in left knee F43.12 Post-traumatic stress disorder, chronic F41.1 Generalized anxiety disorder 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 Office Visit 01/11/2018 11:15a Main Office as Michel Souza G89.29 Other chronic Of 12/02/13 DO, MPH pain M54.5 Low back pain M25.561 Pain in right knee M25.562 Pain in left knee R53.83 Other fatigue Z79.891 alf (current) use of opiate analgesic Office Visit 12/10/2017 2:30p Main Office as Michel Souza G89.29 Other chronic Of 12/02/13 DO, MPH pain M54.5 Low back pain M51.36 Other intervertebral disc degeneration, lumbar region M25.561 Pain in right knee M25.562 Pain in left knee R53.83 Other fatigue F17.210 Nicotine dependence, cigarettes, uncomplicated 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1 Generalized anxiety disorder 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 Office Visit 09/21/2017 11:45a Main Office as Michel Souza G89.29 Other chronic Of 12/02/13 DO, MPH pain M51.36 Other intervertebral disc degeneration, lumbar region M54.5 Low back pain 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 L30.8 Other specified dermatitis Office Visit 09/02/2017 3:30p Main Office as Michel Souza G89.29 Other chronic Of 12/02/13 DO, MPH pain M54.5 Low back pain M51.36 Other intervertebral disc degeneration, lumbar region M25.561 Pain in right knee M25.562 Pain in left knee F41.1 Generalized anxiety disorder Z79.891 alf (current) use of opiate analgesic Office Visit 08/17/2017 1:45p Main Office as Michel Souza G89.29 Other chronic Of 12/02/13 , MPH pain M51.36 Other intervertebral disc degeneration, lumbar region M54.5 Low back pain M25.561 Pain in right knee M25.562 Pain in left knee F41.1 Generalized anxiety disorder Z71.89 Other specified counseling Z79.891 alf (current) use of opiate analgesic Plan of [...] physical findings. Continue current medical pain management.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New Labs:Urine Drug Screen, Ordered: 01/31/19Comments:Urine drug screen sample taken today to monitor opiate use and to monitor use of illicit substances.Will discuss results at next appointment.The following tests were ordered:6 AM, AMPH, MALINI, CLIFFORD, BUP, CARIS, COCM, COT, ETG, FENT, MCSHSG, OPI, OXY, PCP, TAPEN, XTSY, ZOLP. A urine drug test (UDT) was ordered for this patient and collected on site today. 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 Activity as toleratedContinue with PCP
== END 2019-02-03 08:15 | disposition home or self-care (01) ==
LOC: UCCORT 07:35
DX: K04.7 Periapical abscess without sinus (principal); J45.909 Unspecified asthma, uncomplicated; F17.210 Nicotine dependence, cigarettes, uncomplicated; Z91.018 Allergy to other foods; Z88.0 Allergy status to penicillin; Z88.8 Allergy status to other drugs, medicaments and biological substances
CPT/HCPCS: 99201; G0463

== ENCOUNTER 2019-02-14 15:19 | Emergency (ER) | payer OTHER ==
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
[2019-02-14 18:31] VITALS: BP 112/70
== END 2019-02-14 18:20 | disposition home or self-care (01) ==
LOC: UCEAST 15:19
DX: S43.402A Unspecified sprain of left shoulder joint, initial encounter (principal); M25.552 Pain in left hip; M25.572 Pain in left ankle and joints of left foot; W19.XXXA Unspecified fall, initial encounter; Y92.9 Unspecified place or not applicable; R30.0 Dysuria; R35.0 Frequency of micturition; L01.00 Impetigo, unspecified; F44.5 Conversion disorder with seizures or convulsions; Z88.1 Allergy status to other antibiotic agents; Z88.0 Allergy status to penicillin; Z88.8 Allergy status to other drugs, medicaments and biological substances; Z91.018 Allergy to other foods; F17.210 Nicotine dependence, cigarettes, uncomplicated
CPT/HCPCS: 81003; 99212; G0463

== ENCOUNTER 2019-03-14 20:10 | Emergency (ER) | payer OTHER ==
--- OUTSIDE RECORDS SUMMARY | 2019-03-14 20:27 | XMS REPORT | Continuity of Care Document ---
:1985 External Reference #:[id number] Author Name Lynda Wilson Care Team Providers Name Role Phone Radha Draper M.D. Primary Care Physician Unavailable Payers Date Identification Numbers Payment Provider Subscriber Policy Number: [id number] Mauricio Kitchen PayID: [id number] [address] [place] [address] Advance Directives Description No Information Available Problems Active Problems Provider Date Asthma without status asthmaticus Jeny Hawley PA Onset: 02/07/2018 Migraine with typical aura Jeny Hawley PA Onset: 02/07/2018 Adjustment disorder with mixed emotional Jeny Hawley PA Onset: 2017 features Amnesia Antonio Frias M.D. Onset: 06/15/2018 Dizziness and giddiness Antonio Frisa M.D. Onset: 06/15/2018 Transient altered mental status Antonio Frias M.D. Onset: 06/15/2018 Chronic fatigue syndrome Antonio Frias M.D. Onset: 06/15/2018 Family History Date Family Member(s) Observation Comments General Alcoholism General Drug Addiction General Migraine General Cancer General Heart Disease Father Unknown Mother Migraine First Sister Migraine Social History Type Date Description Comments Sex Unknown Marital Status Significant Other Lives With Grandmother Occupation Disabled Tobacco Use Start: Unknown currently smokes 1/2 Pack Daily Smoking Status Reviewed: 03/07/19 currently smokes 1/2 Pack Daily ETOH Use Denies alcohol use Tobacco Use Start: Unknown Light tobacco smoker (10 or fewer cigarettes/day) Recreational Drug Use Formerly used Marijuana regularly Exercise Type/Frequency Exercises regularly Allergies, Adverse Reactions, Alerts Active Allergies Reaction Severity Comments Date Onion 02/07/2018 Amoxicillin 04/01/2018 Dust 02/07/2018 Lexapro 04/01/2018 Lorazepam 04/01/2018 Medications Active Medications SIG Qnty Indications Ordering Provider Date Diclofenac Sodium take 1 by mouth 30tabs M25.512 Margi Mendoza MD 2018 75mg twice a day as Tablets DR needed for pain Ventolin HFA 2 puffs every 4 18units J45.909 Eloise Bennett MD 02/07/2018 108(90Base) hours as needed mcg/Act Aerosol for cough and wheeze Alprazolam 1 tab in am and Unknown 1mg Tablets 1/2 tab in pm Hydromorphone HCL as needed Unknown 2mg Tablets Meloxicam take one tab Unknown 7.5mg Tablets daily as needed MDD 1 Ondansetron HCL 1 by mouth Unknown 8mg every 6 hours Tablets Ibuprofen as needed Unknown 600mg Tablets Albuterol Sulfate 1 vial every 4 Unknown hours as needed 1.25mg/3ML Nebulizer Gabapentin 1 cap by mouth Unknown 300mg Capsules three times daily Abilify take 1 tablet Unknown 5mg Tablets by mouth daily Clonidine HCL take 1/2 tablet Unknown 0.1mg by mouth twice Tablets a day Dok 1 cap by mouth Unknown 100mg Capsules daily History Medications Risperidone 1 tab by mouth daily Unknown - 06/12/2018 2mg Tablets Nicoderm CQ apply daily Unknown - 06/12/2018 21mg/24HR Patches 24HR Immunizations Description No Information Available Vital Signs Date Vital Result Comment 03/07/2019 2:40pm Height 68 inches 5'8" Weight 149.00 lb Heart Rate 49 /min BP Systolic 118 mmHg BP Diastolic 56 mmHg Respiratory Rate 14 /min Body Temperature 98.1 F Pain Level 6 BMI (Body Mass Index) 22.7 kg/m2 06/15/2018 11:16am Height 68 inches 5'8" Weight 151.25 lb Heart Rate 92 /min BP Systolic Sitting 116 mmHg BP Diastolic Sitting 64 mmHg Respiratory Rate 18 /min O2 % BldC Oximetry 98 % BMI (Body Mass Index) 23.0 kg/m2 Results Description No Information Available Procedures Description No Information Available Encounters Type Date Location Provider Dx Diagnosis Office Visit 06/15/2018 Christina Frias, R41.3 Other amnesia 11:15a [facility] R42 Dizziness and giddiness R40.4 Transient alteration of awareness R53.82 Chronic fatigue, unspecified Plan of Treatment 03/07/2019 - Margi Mendoza, MDM25.512 Pain in left shoulderNew Medication: Diclofenac Sodium 75 mg - take 1 by mouth twice a day as needed for painNew Xrays:MRI Shoulder Left W/O, Ordered: 03/07/19Follow up:Follow up: after MRI
[2019-03-14 20:40] VITALS: BP 124/81
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
== END 2019-03-14 21:00 | disposition home health service (06) ==
LOC: UCCORT 20:10
DX: M54.2 Cervicalgia (principal); M79.641 Pain in right hand; R51 Headache; R07.9 Chest pain, unspecified; R10.9 Unspecified abdominal pain; V47.6XXA Car passenger injured in collision with fixed or stationary object in traffic accident, initial encounter; Y93.89 Activity, other specified; Y92.414 Local residential or business street as the place of occurrence of the external cause; F17.210 Nicotine dependence, cigarettes, uncomplicated; Z88.0 Allergy status to penicillin; Z88.1 Allergy status to other antibiotic agents; Z88.8 Allergy status to other drugs, medicaments and biological substances; Z91.018 Allergy to other foods
CPT/HCPCS: 99212; G0463

== ENCOUNTER 2019-03-15 14:56 | Emergency (ER) | payer SELFPAY ==
[2019-03-15 15:36] VITALS: BP 142/65
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
== END 2019-03-15 17:45 | disposition home or self-care (01) ==
LOC: UCCORT 14:56
DX: S06.0X9A Concussion with loss of consciousness of unspecified duration, initial encounter (principal); S16.1XXA Strain of muscle, fascia and tendon at neck level, initial encounter; S29.012A Strain of muscle and tendon of back wall of thorax, initial encounter; S39.012A Strain of muscle, fascia and tendon of lower back, initial encounter; H54.7 Unspecified visual loss; R03.0 Elevated blood-pressure reading, without diagnosis of hypertension; F17.210 Nicotine dependence, cigarettes, uncomplicated; V49.40XA Driver injured in collision with unspecified motor vehicles in traffic accident, initial encounter; Z79.899 Other long term (current) drug therapy; Z88.8 Allergy status to other drugs, medicaments and biological substances; Z88.1 Allergy status to other antibiotic agents; Z88.0 Allergy status to penicillin
CPT/HCPCS: 99213; G0463

== ENCOUNTER 2019-04-17 07:06 | Emergency (ER) | payer OTHER ==
--- OUTSIDE RECORDS SUMMARY | 2019-04-17 07:13 | XMS REPORT | Continuity of Care Document ---
:1985 External Reference #:[id number] Author Name Germaine Churchill Care Team Providers Name Role Phone Radha Draper M.D. Primary Care Physician Unavailable Payers Date Identification Numbers Payment Provider Subscriber Policy Number: [id number] Mauricio Kitchen PayID: [id number] [address] [place] [phone] Problems Active Problems Provider Date Asthma without status asthmaticus Jeny Hawley PA Onset: 02/07/2018 Migraine with typical aura Jeny Hawley PA Onset: 02/07/2018 Adjustment disorder with mixed emotional Jeny Hawley PA Onset: 2017 features Amnesia Antonio Frias M.D. Onset: 06/15/2018 Dizziness and giddiness Antonio Frias M.D. Onset: 06/15/2018 Transient altered mental status [...] smokes 1/2 Pack Daily Smoking Status Reviewed: 03/23/19 currently smokes 1/2 Pack Daily ETOH Use Denies alcohol use Tobacco Use Start: Unknown Light tobacco smoker (10 or fewer cigarettes/day) Recreational Drug Use Formerly used Marijuana regularly Exercise Type/Frequency Exercises regularly Allergies, Adverse Reactions, Alerts Active Allergies Reaction Severity Comments Date Onion 02/07/2018 Amoxicillin 04/01/2018 Dust 02/07/2018 Lexapro 04/01/2018 Lorazepam 04/01/2018 Clindacin 03/23/2019 Medications Active Medications SIG Qnty Indications Ordering Provider Date Valium take 1 pill by 1tabs Margi Mendoza MD 03/22/2019 10mg Tablets mouth 30 minutes prior to mri Ventolin HFA 2 puffs every 4 18units J45.909 Eloise Bennett MD 02/07/2018 hours as needed 108(90Base) mcg/Act for cough and Aerosol wheeze Ibuprofen as needed Unknown 600mg Tablets Albuterol Sulfate 1 vial every 4 Unknown hours as needed 1.25mg/3ML Nebulizer Gabapentin 1 cap by mouth Unknown 800mg three times Tablets daily Seroquel 2 tabs in the am Unknown 100mg Tablets and 2 tabs in the pm Montelukast Sodium 1 by mouth every Unknown 10mg day Tablets History Medications Diclofenac Sodium take 1 by mouth 30tabs M25.512 Margi Mendoza, 03/07/2019 - 75mg twice a day as 03/22/[address] needed for pain Dok 1 cap by mouth Unknown - 100mg Capsules daily 03/22/2019 Clonidine HCL take 1/2 tablet Unknown - 0.1mg by mouth twice 03/22/2019 Tablets a day Abilify take 1 tablet Unknown - 5mg Tablets by mouth daily 03/22/2019 Nicoderm CQ apply daily Unknown - 21mg/24HR 06/12/2018 Patches 24HR Ondansetron HCL 1 by mouth Unknown - 8mg every 6 hours 03/22/2019 Tablets Risperidone 1 tab by mouth Unknown - 2mg Tablets daily 06/12/2018 Meloxicam take one tab Unknown - 7.5mg Tablets daily as needed 03/22/2019 MDD 1 Hydromorphone HCL as needed Unknown - 2mg 03/22/2019 Tablets Alprazolam 1 tab in am and Unknown - 1mg Tablets 1/2 tab in pm 03/22/2019 Vital Signs Date Vital Result Comment 03/23/2019 4:08pm Height 68 inches 5'8" Weight 120.00 lb Heart Rate 103 /min BP Systolic 118 mmHg BP Diastolic 76 mmHg BMI (Body Mass Index) 18.2 kg/m2 03/07/2019 2:40pm Height 68 inches 5'8" Weight [...] % BMI (Body Mass Index) 23.0 kg/m2 Encounters Type Date Location Provider Dx Diagnosis Office Visit 03/23/2019 [facility] Antonio Frias, R40.4 Transient 3:45p Services Of [facility] alteration of awareness R53.82 Chronic fatigue, unspecified R42 Dizziness and giddiness R41.3 Other amnesia Office Visit 03/07/2019 2[facility] Margi Mendoza, M25.512 Pain in left Services Of MD ashley CSaadMSaadASaad S49.92xA Unsp injury of left shoulder and upper arm, init encntr Office Visit 06/15/2018 [place] Antonio Frias, R41.3 Other amnesia 11:15a [facility] [place] [facility] R42 Dizziness and giddiness R40.4 Transient alteration of awareness R53.82 Chronic fatigue, unspecified Plan of Treatment Future Appointment(s):04/17/2019 12:00 pm - Antonio Frias M.D. at [facility]03/23/2019 - Antonio Frias M.D.R40.4 Transient alteration of awarenessNew Orders:EEG, Routine, Ordered: 03/23/19Follow up: Follow up after MRI[facility]EEG [facility]Get blood pressure cuffR53.82 Chronic fatigue, [id number] Dizziness and giddinessNew Orders:Event Monitor, Ordered: R41.3 Other amnesiaNew Xrays:MRI Brain W/O, Ordered: 03/23/19
[2019-04-17 07:20] VITALS: BP 127/76
--- NOTE | 2019-04-17 07:34 | UC ---
Throat Pain/Nasal Valentin HPI - HPI Summary HPI Summary: 34-year-old woman comes in with a chief complaint of cough chest congestion and upper respiratory tract infection symptoms and also gingivitis. His been going on for more than a week. She does have sputum production. Has gingival swelling right lower mouth. No fevers. - History of Current Complaint Chief Complaint: UCDentalProblem Stated Complaint: ST,COUGH,RT EAR/DENTAL COMPLAINT Time Seen by Provider: 04/17/19 07:23 Hx Last Menstrual Period: ~04/12/19 Pain Intensity: 8 - Allergies/Home Medications Allergies/Adverse Reactions: Allergies Allergy/AdvReac Type Severity Reaction Status Date / Time lorazepam Allergy Intermediate Palpitation Verified 04/17/19 07:29 s clindamycin Allergy Swelling Verified 04/17/19 07:29 escitalopram [From Lexapro] Allergy Palpitation Verified 04/17/19 07:29 s amoxicillin AdvReac See Comment Verified 04/17/19 07:29 onions Allergy Unknown lightheaded Uncoded 04/17/19 07:29 Home Medications: Home Medications Amitriptyline TAB* [Elavil TAB*] 10 mg PO BEDTIME 04/17/19 [History Confirmed ] PMH/Surg Hx/FS Hx/Imm Hx Previously Healthy: Yes Other History Of: Negative For: HIV, Hepatitis B, Hepatitis C - Surgical History Surgical History: Yes Surgery Procedure, Year, and Place: bx heart age 14 ? ablation. HEART CATH NO STENTS - Family History Known Family History: Positive: None, Cardiac Disease - Dad and PGF - Social History Alcohol Use: None Alcohol Amount: RECOVERING ALCOHOLIC Substance Use Type: Marijuana Substance Use Comment - Amount & Last Used: medical/daily use-last use was today 03/15/19 Smoking Status (MU): Heavy Every Day Tobacco Smoker Type: Cigarettes Amount Used/How Often: <1 PPD Length of Time of Smoking/Using Tobacco: started at age 17 Have You Smoked in the Last Year: Yes Household Exposure Type: Cigarettes Review of Systems All Other Systems Reviewed And Are Negative: Yes Constitutional: Positive: Negative Skin: Positive: Negative Eyes: Positive: Negative ENT: Positive: Dental Pain, Nasal Discharge Respiratory: Positive: Cough, Other - SEE HPI Cardiovascular: Positive: Negative Gastrointestinal: Positive: Negative Motor: Positive: Negative Neurovascular: Positive: Negative Musculoskeletal: Positive: Negative Neurological: Positive: Negative Psychological: Positive: Negative Is Patient Immunocompromised?: No Physical Exam Triage Information Reviewed: Yes Appearance: Well-Appearing, No Pain Distress, Well-Nourished Vital Signs: Initial Vital Signs Temp 97.7 F 04/17/19 07:14 Pulse 95 04/17/19 07:14 Resp 18 04/17/19 07:14 BP 127/76 04/17/19 07:14 Pulse Ox 100 04/17/19 07:14 Vital Signs Reviewed: Yes Eye Exam: Normal Eyes: Positive: Conjunctiva Clear ENT: Positive: Pharyngeal erythema, Nasal congestion Dental: Positive: Other: - RT LOWER GINGIVITIS Neck: Positive: Supple Respiratory: Positive: No respiratory distress, Rhonchi Cardiovascular: Positive: RRR Musculoskeletal Exam: Normal Musculoskeletal: Positive: Strength Intact, ROM Intact Neurological Exam: Normal Neurological: Positive: Alert, Muscle Tone Normal Psychological Exam: Normal Psychological: Positive: Age Appropriate Behavior Skin Exam: Normal Throat Pain/Nasal Course/Dx - Course Course Of Treatment: THE PATIENT PREFERS TO BE ON ANTIBIOTICS AT THIS TIME. - Differential Dx/Diagnosis Provider Diagnosis: Gingivitis, Bronchitis Discharge - Sign-Out/Discharge Documenting (check all that apply): Patient Departure All imaging exams completed and their final reports reviewed: No Studies - Discharge Plan Condition: Stable Disposition: HOME Prescriptions: Azithromyxin KALPESH (NF) [Z-Kalpesh (Zithromax) 250 mg tabs #6] 2 tab PO .TODAY, THEN 1 DAILY #6 tab Patient Education Materials: Gingivitis (ED), Acute Bronchitis (ED) Referrals: Princess Kearney [Primary Care Provider] - Additional Instructions: FOLLOW UP WITH YOUR DOCTOR IF NOT COMPLETELY IMPROVED. GET RECHECKED SOONER IF YOUR CONDITION WORSENS OR ANY QUESTIONS OR CONCERNS. - Billing Disposition and Condition Condition: STABLE Disposition: Home
== END 2019-04-17 07:41 | disposition home or self-care (01) ==
LOC: UCCORT 07:06
DX: K05.10 Chronic gingivitis, plaque induced (principal); J40 Bronchitis, not specified as acute or chronic; Z88.0 Allergy status to penicillin; Z88.1 Allergy status to other antibiotic agents; F17.210 Nicotine dependence, cigarettes, uncomplicated
CPT/HCPCS: 99212; G0463

== ENCOUNTER 2019-04-17 07:24 | Emergency (ER) | payer OTHER ==
[2019-04-17 07:29] VITALS: BP 127/76
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
== END 2019-04-17 09:20 | disposition home or self-care (01) ==
LOC: UCCORT 07:24
DX: S63.91XA Sprain of unspecified part of right wrist and hand, initial encounter (principal); V89.2XXA Person injured in unspecified motor-vehicle accident, traffic, initial encounter; Y92.9 Unspecified place or not applicable; F17.210 Nicotine dependence, cigarettes, uncomplicated
CPT/HCPCS: 99211; G0463

== ENCOUNTER 2019-07-05 20:08 | Emergency (ER) | payer OTHER ==
--- NOTE | 2019-07-06 00:09 | ED ---
HPI Chest Pain - HPI Summary HPI Summary: Pt is a 34 y/o F presenting to the ED with a chief complaint of chest wall pain initially onset tonight around 1730. She states that she has had increased stress lately, causing her to experience syncope yesterday. Today, she has pains in her chest on the L side, with shooting pain down her R arm, and associated SOB. She also notes a recent migraine. - History of Current Complaint Chief Complaint: EDChestWallPain Time Seen by Provider: 07/05/19 23:58 Hx Obtained From: Patient Hx Last Menstrual Period: ~04/12/19 Onset/Duration: Started Hours Ago, Still Present Timing: Constant, Lasting Hours Initial Severity: Moderate Current Severity: Severe Pain Intensity: 9 Pain Scale Used: 0-10 Numeric Chest Pain Location: Left Lateral Chest Pain Radiates: Yes Chest Pain Radiates To:: Arm - right Character: Sharp/Stabbing Aggravating Factor(s): Nothing Alleviating Factor(s): Nothing Associated Signs and Symptoms: Positive: Chest Pain, Recent Stress, Headaches - recent migraine, Shortness of Breath, Syncope - yesterday (07/04/19) - Allergy/Home Medications Allergies/Adverse Reactions: Allergies Allergy/AdvReac Type Severity Reaction Status Date / Time lorazepam Allergy Intermediate Palpitation Verified 07/05/19 20:17 s clindamycin Allergy Swelling Verified 07/05/19 20:17 escitalopram [From Lexapro] Allergy Palpitation Verified 07/05/19 20:17 s amoxicillin AdvReac See Comment Verified 07/05/19 20:17 onions Allergy Unknown lightheaded Uncoded 07/05/19 20:17 PMH/Surg Hx/FS Hx/Imm Hx Previously Healthy: Yes Endocrine/Hematology History: Denies: Hx Diabetes, Hx Thyroid Disease Cardiovascular History: Denies: Hx Congestive Heart Failure, Hx Deep Vein Thrombosis, Hx Hypertension , Hx Myocardial Infarction, Hx Pacemaker/ICD Respiratory History: Reports: Hx Asthma Denies: Hx Chronic Obstructive Pulmonary Disease (COPD), Hx Lung Cancer, Hx Pneumonia, Hx Pulmonary Embolism GI History: Reports: Hx Ulcer - She used to be on omeprazole years ago. Denies: Hx Gall Bladder Disease, Hx Gastrointestinal Bleed, Hx Urosepsis History: Denies: Hx Kidney Stones, Hx Renal Disease Musculoskeletal History: Reports: Hx Back Problems Sensory History: Denies: Hx Hearing Aid Neurological History: Reports: Hx Seizures - Last seizure, "years ago." Stress- induced seizures. Denies: Hx Dementia, Hx Migraine, Hx Transient Ischemic Attacks (TIA) Psychiatric History: Reports: Hx Anxiety, Hx Panic Disorder, Hx Schizophrenia, Hx of Violent Episodes Against Others Denies: Hx Eating Disorder, Hx Depression, Hx Bipolar Disorder - Surgical History Surgery Procedure, Year, and Place: bx heart age 14 ? ablation. HEART CATH NO STENTS Infectious Disease History: No Infectious Disease History: Denies: Traveled Outside the [place] in Last 30 Days - Family History Known Family History: Positive: Cardiac Disease - Dad and PGF - Social History Alcohol Use: None Alcohol Amount: RECOVERING ALCOHOLIC Hx Substance Use: Yes Substance Use Type: Reports: Marijuana Substance Use Comment - Amount & Last Used: medical/daily use-last use was today 03/15/19 Hx Tobacco Use: Yes Smoking Status (MU): Heavy Every Day Tobacco Smoker Type: Cigarettes Amount Used/How Often: <1 PPD Length of Time of Smoking/Using Tobacco: started at age 17 Have You Smoked in the Last Year: Yes Review of Systems Positive: Chest Pain Positive: Shortness Of Breath Positive: Headache - migraine, Syncope All Other Systems Reviewed And Are Negative: Yes Physical Exam - Summary Physical Exam Summary: Appearance: Well-appearing, Well-nourished, lying in bed comfortably Skin: Warm, dry, no obvious rash Eyes: sclera anicteric, no conjunctival pallor ENT: mucous membranes moist, pharynx appears normal Neck: Supple, nontender Respiratory: Clear to auscultation, no signs of respiratory distress Cardiovascular: Normal S1, S2. No murmurs. Normal distal pulses in tibial and radial bilaterally. Abdomen: Soft, nontender, normal active bowel sounds present Musculoskeletal: Normal, Strength/ROM Intact Neurological: A&Ox3, awake and alert, mentation is normal, speech is fluent and appropriate Psychiatric: affect is normal, does not appear anxious or depressed Triage Information Reviewed: Yes Vital Signs On Initial Exam: Initial Vitals Temp Pulse Resp BP Pulse Ox 98.8 F 114 24 0/0 100 07/05/19 20:14 07/05/19 20:14 07/05/19 20:14 07/05/19 20:14 07/05/19 20:14 Vital Signs Reviewed: Yes Diagnostics - Vital Signs Vital Signs Temp Pulse Resp BP Pulse Ox 07/05/19 22:16 98.9 F 87 18 119/67 99 07/05/19 20:14 98.8 F 114 24 127/68 100 - Laboratory Result Diagrams: 07/06/19 00:15 07/06/19 00:15 Lab Statement: Any lab studies that have been ordered have been reviewed, and results considered in the medical decision making process. Chest Pain Course/Dx - Course Course Of Treatment: Pt is a 34 y/o F presenting to the ED with a chief complaint of chest wall pain initially onset tonight around 1730. She states that she has had increased stress lately, causing her to experience syncope yesterday. Today, she has pains in her chest on the L side, with shooting pain down her R arm, and associated SOB. She also notes a recent migraine. Pt's physical exam is nml. She will be d/c'ed with dx of atypical chest pain. She is stable and agreeable with this plan. - Diagnoses Provider Diagnoses: Atypical chest pain Discharge ED - Sign-Out/Discharge Documenting (check all that apply): Patient Departure Patient Received Moderate/Deep Sedation with Procedure: No - Discharge Plan Condition: Good Disposition: HOME Patient Education Materials: Chest Pain (ED) Referrals: Princess Kearney [Primary Care Provider] - 1 Week - Billing Disposition and Condition Condition: GOOD Disposition: Home - Attestation Statements Document Initiated by Clarisse: Yes Documenting Scribe: Nargis Kong Provider For Whom Clarisse is Documenting (Include Credential): Cody Matt MD. Scribe Attestation: Nargis Flores scribed for Cody Matt MD. on 07/08/19 at 0425. Scribe Documentation Reviewed: Yes Provider Attestation: The documentation as recorded by the Nargis altamirano accurately reflects the service I personally performed and the decisions made by me, Cody Matt MD. Status of Scribe Document: Viewed
[2019-07-06 00:21] LABS: ABS Lymphocytes 2.7 10^3/ul (1.0-4.8); ABS Monocytes 0.7 10^3/ul (0-0.8); ABS Neutrophils 4.1 10^3/ul (1.5-7.7); Eosinophil % 0.2 %; Hematocrit 35 % (35-47); Hemoglobin 12.5 g/dL (12.0-16.0); Lymphocyte % 35.6 %; Mean Corpuscular HGB Conc 36 g/dL (31-36); Mean Corpuscular Hemoglobin 34 pg (27-31); Mean Corpuscular Volume 93 fL (80-97); Nucleated Red Blood Cells % 0.1; Platelet Count 219 10^3/uL (150-450); Red Blood Count 3.73 10^6 /uL (3.70-4.87); Red Cell Distribution Width 13 % (10-15); White Blood Count 7.6 10^3/uL (3.5-10.8)
[2019-07-06 00:49] LABS: Albumin 4.1 g/dL (3.2-5.2); Albumin/Globulin Ratio 1.6 (1-3); BUN/Creatinine Ratio 31.1 (8-20); Calcium 9.4 mg/dL (8.6-10.3); EGFR African American 110.1 (>60); Globulin 2.5 g/dL (2-4); Potassium 3.8 mmol/L (3.5-5.0); Total Bilirubin 0.4 mg/dL (0.2-1.0); Total Protein 6.6 g/dL (6.4-8.9)
[2019-07-06 01:29] VITALS: BP 123/77
== END 2019-07-06 01:27 | disposition home or self-care (01) ==
LOC: ED 20:08
DX: R07.89 Other chest pain (principal); F17.210 Nicotine dependence, cigarettes, uncomplicated; Z79.899 Other long term (current) drug therapy; Z88.1 Allergy status to other antibiotic agents; Z88.8 Allergy status to other drugs, medicaments and biological substances
CPT/HCPCS: 36415; 80053; 83605; 84484; 85025; 85379; 93005; 99282

== ENCOUNTER 2019-08-18 12:51 | Emergency (ER) | payer OTHER ==
[2019-08-18 13:31] VITALS: BP 110/68
--- NOTE | 2019-08-18 14:32 | UC ---
Lower Extremity/Ankle HPI - HPI Summary HPI Summary: Bilateral feet swelling worsening x 1.5 weeks. Did have some mild swelling before being released from longterm on 07/26/19 but not this bad. patient has a cardiac history of irregular herat beat, but is not sure what procedures she has had. poor historian - History of Current Complaint Chief Complaint: UCLowerExtremity Stated Complaint: BILATERAL ANKLE SWELLING Time Seen by Provider: 08/18/19 13:18 Hx Obtained From: Patient Hx Last Menstrual Period: ~04/12/19 ?: No Onset/Duration: Sudden Onset, Lasting Weeks Severity Initially: Mild Severity Currently: Mild Pain Intensity: 0 Aggravating Factor(s): Standing, Ambulation Alleviating Factor(s): Rest, Elevation Able to Bear Weight: Yes - Allergies/Home Medications Allergies/Adverse Reactions: Allergies Allergy/AdvReac Type Severity Reaction Status Date / Time lorazepam Allergy Intermediate Palpitation Verified 08/18/19 13:22 s clindamycin Allergy Swelling Verified 08/18/19 13:22 escitalopram [From Lexapro] Allergy Palpitation Verified 08/18/19 13:22 s amoxicillin AdvReac See Comment Verified 08/18/19 13:22 onions Allergy Unknown lightheaded Uncoded 08/18/19 13:22 Home Medications: Home Medications Buprenorphine HCl/Naloxone HCl [Buprenorp-Nalox 8-2 mg Sl Film] 1 each SL DAILY 08/18/19 [History Confirmed 08/18/19] Cyclobenzaprine TAB* [Flexeril 10 MG TAB*] 10 mg PO TID PRN 08/18/19 [History Confirmed 08/18/19] Divalproex ER TAB(*) [Depakote ER TAB(*)] 250 mg PO DAILY 08/18/19 [History Confirmed 08/18/19] Ibuprofen TAB* [Motrin TAB* 600 MG] 600 mg PO TID 08/18/19 [History Confirmed ] PMH/Surg Hx/FS Hx/Imm Hx Previously Healthy: Yes Other History Of: Negative For: HIV, Hepatitis B, Hepatitis C - Surgical History Surgical History: Yes Surgery Procedure, Year, and Place: bx heart age 14 ? ablation. HEART CATH NO STENTS - Family History Known Family History: Positive: Cardiac Disease - Dad and PGF - Social History Alcohol Use: None Alcohol Amount: RECOVERING ALCOHOLIC Substance Use Type: Marijuana Substance Use Comment - Amount & Last Used: medical/daily use-last use was today 03/15/19 Smoking Status (MU): Heavy Every Day Tobacco Smoker Type: Cigarettes Amount Used/How Often: <1 PPD Length of Time of Smoking/Using Tobacco: started at age 17 Have You Smoked in the Last Year: Yes Household Exposure Type: Cigarettes Review of Systems All Other Systems Reviewed And Are Negative: Yes Respiratory: Positive: Cough Musculoskeletal: Positive: Decreased ROM, Edema Neurological: Positive: Numbness Is Patient Immunocompromised?: No Physical Exam Triage Information Reviewed: Yes Appearance: Well-Appearing, Well-Nourished, Pain Distress Vital Signs: Initial Vital Signs Temp 98.7 F 08/18/19 13:22 Pulse 97 08/18/19 13:22 Resp 15 08/18/19 13:22 BP 110/68 08/18/19 13:22 Pulse Ox 99 08/18/19 13:22 Vital Signs Reviewed: Yes Eye Exam: Normal ENT Exam: Normal ENT: Positive: Pharyngeal erythema, Nasal congestion, Nasal drainage, TM bulging , TM dull - fluid behind TM Dental Exam: Normal Neck exam: Normal Neck: Positive: Enlarged Nodes @ - left cervical Respiratory: Positive: Crackles - lll Cardiovascular Exam: Normal Abdominal Exam: Normal Musculoskeletal: Positive: Edema @ - bilateral lower legs and feet. feet are white and cap refill is slow, Neurological Exam: Normal Psychological Exam: Normal Skin Exam: Normal Lower Extremity Course/Dx - Course Course Of Treatment: hx obtained, exam performed ,meds reviewed, - Differential Dx/Diagnosis Provider Diagnosis: PVD (peripheral vascular disease), Sinusitis Discharge ED - Sign-Out/Discharge Documenting (check all that apply): Patient Departure All imaging exams completed and their final reports reviewed: Yes - Discharge Plan Condition: Stable Disposition: HOME Prescriptions: Cephalexin CAP* [Keflex CAP*] 500 mg PO BID #20 cap Patient Education Materials: Sinusitis (ED), Peripheral Vascular Disease (ED) Referrals: Puneet Rivas PA [Primary Care Provider] - Additional Instructions: 1. YOU NEED TO FOLLOW UP WITH YOUR PCP as treatment for peripheral edema does require monitoring with blood work 2. compression stockings, you can pick them up at the drug store, just mild compression is all you need. 3. Elevate your feet at rest. 4. treated you for sinusitis, take the medication as prescribed. - Billing Disposition and Condition Condition: STABLE Disposition: Home
== END 2019-08-18 15:25 | disposition home or self-care (01) ==
LOC: UCCORT 12:51
DX: I73.9 Peripheral vascular disease, unspecified (principal); J32.9 Chronic sinusitis, unspecified; F17.210 Nicotine dependence, cigarettes, uncomplicated; Z88.0 Allergy status to penicillin; Z91.018 Allergy to other foods; Z88.8 Allergy status to other drugs, medicaments and biological substances; Z88.1 Allergy status to other antibiotic agents
CPT/HCPCS: 71046; 99211; G0463

== ENCOUNTER 2019-08-22 09:20 | Emergency (ER) | payer OTHER ==
[2019-08-22 09:41] VITALS: BP 107/65
--- NOTE | 2019-08-22 10:06 | UC ---
Lower Extremity/Ankle HPI - HPI Summary HPI Summary: Patient is a 34yo female presenting with right ankle and midfoot pain and swelling since last night when she was trying to give her cat a bath and tripped. States she rolled her ankle and heard a "pop." Patient has taken ibuprofen and tylenol without pain relief. NOtes throbbing pain that is worse with movement. Notes decreased ROM. She denies bruising. Denies numbness and tingling. Patient is still able to ambulate but not without pain. - History of Current Complaint Chief Complaint: UCLowerExtremity Stated Complaint: RIGHT FOOT PAIN Hx Obtained From: Patient Hx Last Menstrual Period: 08/2019 Onset/Duration: Sudden Onset Severity Currently: Moderate Pain Intensity: 6 Pain Scale Used: 0-10 Numeric - Allergies/Home Medications Allergies/Adverse Reactions: Allergies Allergy/AdvReac Type Severity Reaction Status Date / Time lorazepam Allergy Intermediate Palpitation Verified 08/22/19 09:36 s clindamycin Allergy Swelling Verified 08/22/19 09:36 escitalopram [From Lexapro] Allergy Palpitation Verified 08/22/19 09:36 s amoxicillin AdvReac See Comment Verified 08/22/19 09:36 onions Allergy Unknown lightheaded Uncoded 08/22/19 09:36 PMH/Surg Hx/FS Hx/Imm Hx Other History Of: Negative For: HIV, Hepatitis B, Hepatitis C - Surgical History Surgical History: Yes Surgery Procedure, Year, and Place: bx heart age 14 ? ablation. HEART CATH NO STENTS - Family History Known Family History: Positive: Cardiac Disease - Dad and PGF - Social History Alcohol Use: None Alcohol Amount: RECOVERING ALCOHOLIC Substance Use Type: Marijuana Substance Use Comment - Amount & Last Used: medical THC per patient Smoking Status (MU): Heavy Every Day Tobacco Smoker Type: Cigarettes Amount Used/How Often: <1 PPD Length of Time of Smoking/Using Tobacco: started at age 17 Have You Smoked in the Last Year: Yes Household Exposure Type: Cigarettes Review of Systems All Other Systems Reviewed And Are Negative: Yes Constitutional: Positive: Negative. Negative: Fever, Chills Respiratory: Positive: Negative. Negative: Shortness Of Breath Cardiovascular: Positive: Negative. Negative: Palpitations, Chest Pain Gastrointestinal: Positive: Negative. Negative: Vomiting, Nausea Musculoskeletal: Positive: Arthralgia, Decreased ROM, Edema Neurological: Positive: Negative. Negative: Weakness, Paresthesia, Numbness Physical Exam Triage Information Reviewed: Yes Appearance: Well-Appearing, No Pain Distress, Well-Nourished Vital Signs: Initial Vital Signs Temp 98.7 F 08/22/19 09:37 Pulse 87 08/22/19 09:37 Resp 14 08/22/19 09:37 BP 107/65 08/22/19 09:37 Pulse Ox 98 08/22/19 09:37 Vital Signs Reviewed: Yes Eyes: Positive: Conjunctiva Clear ENT: Positive: Hearing grossly normal Neck: Positive: Supple Respiratory: Positive: No respiratory distress Cardiovascular: Positive: Pulses Normal, Brisk Capillary Refill Musculoskeletal: Positive: Strength Intact, ROM Limited @ - dorsiflexion of foot due to pain, Edema @ - right lateral ankle and dorsal foot, Other: - mild tenderness to palpation of anterolateral ankle Neurological: Positive: Alert Psychological: Positive: Age Appropriate Behavior Skin Exam: Normal, Other - no ecchymosis noted Diagnostics - Radiology right ankle Radiology Interpretation Completed By: Radiologist Summary of Radiographic Findings: IMPRESSION: SOFT TISSUE SWELLING. NO ACUTE OSSEOUS INJURY. IF SYMPTOMS PERSIST, RECOMMEND REPEAT IMAGING. right foot Radiology Interpretation Completed By: Radiologist Summary of Radiographic Findings: IMPRESSION: SOFT TISSUE SWELLING. NO ACUTE OSSEOUS INJURY. IF SYMPTOMS PERSIST, RECOMMEND REPEAT IMAGING. Lower Extremity Course/Dx - Course Course Of Treatment: Discussed negative ankle xrays with patient. Instructed to continue with symptomatic treatment. Instructed to follow up with PCP or ortho if pain persists. Patient voiced understanding and agreed to the treatment plan. - Differential Dx/Diagnosis Provider Diagnosis: Right ankle sprain Discharge ED - Sign-Out/Discharge Documenting (check all that apply): Patient Departure All imaging exams completed and their final reports reviewed: Yes - Discharge Plan Condition: Stable Disposition: HOME Patient Education Materials: Ankle Sprain (ED) Referrals: Puneet Rivas PA [Primary Care Provider] - If Needed Gina Galvan MD [Medical Doctor] - Additional Instructions: As discussed, the xrays of the ankle did not show any fractures. Rest, ice, elevate, and compression with an ruthy wrap to help relieve ankle pain. You may also use over the counter pain medications as directed for relief of pain. If pain does not resolve, follow up with your PCP or orthopedics as listed below. Return or go to the emergency room if pain worsens, the foot becomes cold and numb, or you are not able to bear weight. - Billing Disposition and Condition Condition: STABLE Disposition: Home
== END 2019-08-22 10:57 | disposition home or self-care (01) ==
LOC: UCCORT 09:20
DX: S93.401A Sprain of unspecified ligament of right ankle, initial encounter (principal); F17.210 Nicotine dependence, cigarettes, uncomplicated; Z88.0 Allergy status to penicillin; Z88.1 Allergy status to other antibiotic agents; Z91.018 Allergy to other foods; Z88.8 Allergy status to other drugs, medicaments and biological substances; X50.9XXA Other and unspecified overexertion or strenuous movements or postures, initial encounter; W18.49XA Other slipping, tripping and stumbling without falling, initial encounter; Y93.89 Activity, other specified; Y92.9 Unspecified place or not applicable
CPT/HCPCS: 99211; G0463

== ENCOUNTER 2019-10-09 16:47 | Emergency (ER) | payer OTHER ==
[2019-10-09 17:23] VITALS: BP 109/60
--- NOTE | 2019-10-09 17:39 | UC ---
Throat Pain/Nasal Valentin HPI - HPI Summary HPI Summary: 34 year old female with PMH + for psychiatric disorders, asthma, smoking, presents with cough, productive with green sputum, shortness of breath requiring her to use her nebulizer, body aches, muscle aches, headache, sinus fullness/ pressure, ear pressure x 10-14 days. no fever, chills. + fatigue. Recent ABX- in 08/18 given cephalexin, had reaction to medication. - History of Current Complaint Chief Complaint: UCGeneralIllness Stated Complaint: CONGESTION,B/L EAR COMPLAINT Time Seen by Provider: 10/09/19 17:32 Hx Obtained From: Patient Hx Last Menstrual Period: 09/06/19 ?: No Onset/Duration: Sudden Onset, Lasting Days - ~10 Severity: Mild Pain Intensity: 4 Pain Scale Used: 0-10 Numeric Cough: Productive Associated Signs & Symptoms: Positive: Hoarseness, Sinus Discomfort, Nasal Discharge. Negative: Fever, Vomiting, Rash Related History: Smoking - Allergies/Home Medications Allergies/Adverse Reactions: Allergies Allergy/AdvReac Type Severity Reaction Status Date / Time lorazepam Allergy Intermediate Palpitation Verified 10/09/19 17:14 s cephalexin Allergy Swelling Verified 10/09/19 17:14 Of Face,Lips,& Throat clindamycin Allergy Swelling Verified 10/09/19 17:14 escitalopram [From Lexapro] Allergy Palpitation Verified 10/09/19 17:14 s amoxicillin AdvReac See Comment Verified 10/09/19 17:14 onions Allergy Unknown lightheaded Uncoded 10/09/19 17:14 PMH/Surg Hx/FS Hx/Imm Hx Previously Healthy: Yes - MH Other History Of: Negative For: HIV, Hepatitis B, Hepatitis C - Surgical History Surgical History: Yes Surgery Procedure, Year, and Place: bx heart age 14 ? ablation. HEART CATH NO STENTS - Family History Known Family History: Positive: Cardiac Disease - Dad and PGF - Social History Alcohol Use: None Alcohol Amount: RECOVERING ALCOHOLIC Substance Use Type: Marijuana, Prescribed Substance Use Comment - Amount & Last Used: medical THC per patient Smoking Status (MU): Heavy Every Day Tobacco Smoker Type: Cigarettes Amount Used/How Often: 1/2 PPD Length of Time of Smoking/Using Tobacco: started at age 17 Have You Smoked in the Last Year: Yes Household Exposure Type: Cigarettes Review of Systems All Other Systems Reviewed And Are Negative: Yes Constitutional: Positive: Chills, Fatigue ENT: Positive: Ear Ache, Nasal Discharge, Sinus Congestion, Sinus Pain/ Tenderness Respiratory: Positive: Shortness Of Breath, Cough Cardiovascular: Negative: Palpitations, Chest Pain Gastrointestinal: Negative: Abdominal Pain Genitourinary: Negative: Dysuria Musculoskeletal: Positive: Myalgia Is Patient Immunocompromised?: No Physical Exam Triage Information Reviewed: Yes Appearance: No Pain Distress, Well-Nourished, Ill-Appearing - mild Vital Signs: Initial Vital Signs Temp 98.2 F 10/09/19 17:16 Pulse 102 10/09/19 17:16 Resp 20 10/09/19 17:16 BP 109/60 10/09/19 17:16 Pulse Ox 98 10/09/19 17:16 Vital Signs Reviewed: Yes Eyes: Positive: Conjunctiva Clear ENT: Positive: Hearing grossly normal, Pharynx normal, Nasal congestion, Nasal drainage, TMs normal, Sinus tenderness - b/l frontal, max, Uvula midline. Negative: TM bulging, TM dull, TM red, Tonsillar swelling, Tonsillar exudate Neck: Positive: Supple, Nontender, No Lymphadenopathy. Negative: Nuchal Rigidity, Enlarged Nodes @ Respiratory: Positive: Chest non-tender, Lungs clear, Normal breath sounds, No respiratory distress, No accessory muscle use, Other: - patient states had qheezing, but took nebulizer prior to coming to . Negative: Respiratory distress, Crackles, Rhonchi, Stridor, Wheezing Cardiovascular: Positive: RRR Musculoskeletal Exam: Normal Neurological Exam: Normal Neurological: Positive: Alert Psychological: Positive: Normal Response To Family Throat Pain/Nasal Course/Dx - Course Course Of Treatment: SInusitis: - Increase fluid intake - ALbuterol as needed for shortness of breath- nebulizer at home, inhaler as needed while out of home - Over the counter medications for symptoms, such as decongestants, cough drops. - Humidifier at night to help with cough. - Differential Dx/Diagnosis Differential Diagnosis/HQI/PQRI: Pharyngitis, Sinusitis Provider Diagnosis: Sinusitis, Asthma Discharge ED - Sign-Out/Discharge Documenting (check all that apply): Patient Departure All imaging exams completed and their final reports reviewed: No Studies - Discharge Plan Condition: Good Disposition: HOME Prescriptions: Albuterol 2.5MG/3ML (0.083%)* [Ventolin 2.5 MG/3 ML NEB.VANE*] 2.5 mg INH Q4H PRN #30 neb.vane PRN Reason: Shortness Of Breath Albuterol HFA INHALER* [Ventolin HFA Inhaler*] 1 - 2 puff INH Q4H PRN #1 mdi PRN Reason: shortness of breath Azithromyxin [place] (NF) [Z-[place] (Zithromax) 250 mg tabs #6] 2 tab PO .TODAY, THEN 1 DAILY #6 tab Patient Education Materials: Sinusitis (ED) Referrals: [facility] [Outside] No Primary Care Phys,NOPCP [Primary Care Provider] - Additional Instructions: - Increase fluid intake - ALbuterol as needed for shortness of breath- nebulizer at home, inhaler as needed while out of home - Over the counter medications for symptoms, such as decongestants, cough drops. - Humidifier at night to help with cough. - Billing Disposition and Condition Condition: GOOD Disposition: Home
== END 2019-10-09 17:50 | disposition home or self-care (01) ==
LOC: UCCORT 16:47
DX: J45.909 Unspecified asthma, uncomplicated (principal); J32.9 Chronic sinusitis, unspecified; R07.9 Chest pain, unspecified; F17.210 Nicotine dependence, cigarettes, uncomplicated; Z91.018 Allergy to other foods; Z88.0 Allergy status to penicillin; Z88.1 Allergy status to other antibiotic agents; Z88.8 Allergy status to other drugs, medicaments and biological substances
CPT/HCPCS: 99212; G0463

== ENCOUNTER 2019-12-26 19:45 | Emergency (ER) | payer OTHER ==
[2019-12-26 20:10] VITALS: BP 109/62
--- NOTE | 2019-12-26 20:31 | UC ---
FLU HPI - HPI Summary HPI Summary: 34-year-old female who was roller skating 3 days ago when she jumped over some kids that were in her way and landed on both knees. She states she's had bilateral knee pain for the past 3 days with some swelling of the right knee. Today she states her right knee gave out. She also complains of mild left hip pain from sliding along the floor however she has been ambulating for the past 3 days. Although the nurse's notes do say she's had a fever she states she's not had a fever or any cold symptoms but she did vomit one time yesterday. She is taking fluids and retaining them and taking food today without any difficulty. - History of Current Complaint Chief Complaint: UCGeneralIllness Stated Complaint: FEVER, COUGH, VOMITING Time Seen by Provider: 12/26/19 20:29 Hx Obtained From: Patient Hx Last Menstrual Period: 11/25/19 ?: No Onset/Duration: Sudden Onset Severity Currently: Mild Severity Initially: Mild Pain Intensity: 6 Associated Signs & Symptoms: Positive: Vomiting - Patient vomited one time yesterday. - Allergy/Home Medications Allergies/Adverse Reactions: Allergies Allergy/AdvReac Type Severity Reaction Status Date / Time lorazepam Allergy Intermediate Palpitation Verified 12/26/19 20:00 s cephalexin Allergy Swelling Verified 12/26/19 20:00 Of Face,Lips,& Throat clindamycin Allergy Swelling Verified 12/26/19 20:00 escitalopram [From Lexapro] Allergy Palpitation Verified 12/26/19 20:00 s amoxicillin AdvReac See Comment Verified 12/26/19 20:00 onions Allergy Unknown lightheaded Uncoded 12/26/19 20:00 Home Medications: Home Medications Gabapentin CAP(*) [Neurontin 300 CAP(*)] 800 mg PO TID 01/18/19 [History Confirmed 12/26/19] Montelukast Sodium TAB* [Singulair 10 MG TAB*] 10 mg PO DAILY 03/15/19 [History Confirmed 12/26/19] Quetiapine Fumarate [Seroquel 400 MG] 400 mg PO BID 03/15/19 [History Confirmed 12/26/19] Amitriptyline TAB* [Elavil TAB*] 10 mg PO BEDTIME 04/17/19 [History Confirmed ] Buprenorphine HCl/Naloxone HCl [Buprenorp-Nalox 8-2 mg Sl Film] 1 each SL DAILY 08/18/19 [History Confirmed 12/26/19] Divalproex ER TAB(*) [Depakote ER TAB(*)] 250 mg PO DAILY 08/18/19 [History Confirmed 12/26/19] Albuterol 2.5MG/3ML (0.083%)* [Ventolin 2.5 MG/3 ML NEB.VANE*] 2.5 mg INH Q4H PRN #30 neb.vane 10/09/19 [Rx Confirmed 12/26/19] Albuterol HFA INHALER* [Ventolin HFA Inhaler*] 1 - 2 puff INH Q4H PRN #1 mdi 07/20 [Rx Confirmed 12/26/19] Cyclobenzaprine TAB* [Flexeril 10 MG TAB*] 10 mg PO TID PRN 12/26/19 [History Confirmed 12/26/19] PMH/Surg Hx/FS Hx/Imm Hx Previously Healthy: Yes Cardiovascular History: Other - Tachycardia Respiratory History: Asthma GI/ History: Ulcer Other History Of: Negative For: HIV, Hepatitis B, Hepatitis C - Surgical History Surgical History: Yes Surgery Procedure, Year, and Place: bx heart age 14 ? ablation. HEART CATH NO STENTS - Family History Known Family History: Positive: Cardiac Disease - Dad and PGF - Social History Occupation: Unemployed Alcohol Use: None Alcohol Amount: RECOVERING ALCOHOLIC Substance Use Type: Marijuana, Prescribed Substance Use Comment - Amount & Last Used: medical THC per patient Smoking Status (MU): Heavy Every Day Tobacco Smoker Type: Cigarettes Amount Used/How Often: 1/2 PPD Length of Time of Smoking/Using Tobacco: started at age 17 Have You Smoked in the Last Year: Yes Household Exposure Type: Cigarettes Review of Systems All Other Systems Reviewed And Are Negative: Yes Musculoskeletal: Positive: Other: - Swelling to right knee and pain and patient state her knee gave out earlier today. Pain to the left knee over the past 3 days however she has been walking. She complains mild pain to the left hip from sliding along the floor at the roller rink. Is Patient Immunocompromised?: No Physical Exam Triage Information Reviewed: Yes Appearance: Well-Appearing, No Pain Distress, Well-Nourished Vital Signs: Initial Vital Signs Temp 98.8 F 12/26/19 20:03 Pulse 89 12/26/19 20:03 Resp 15 12/26/19 20:03 BP 109/62 12/26/19 20:03 Pulse Ox 100 12/26/19 20:03 Vital Signs Reviewed: Yes Eyes: Positive: Conjunctiva Clear ENT: Positive: Pharynx normal, TMs normal, Uvula midline Neck: Positive: Supple, Nontender, No Lymphadenopathy Respiratory: Positive: Lungs clear, Normal breath sounds, No respiratory distress, No accessory muscle use Cardiovascular: Positive: RRR, No Murmur, Pulses Normal, Brisk Capillary Refill Musculoskeletal: Positive: Strength Intact, ROM Intact, Other: - Patient is ambulating, right knee is swollen and tender over the patella, no deformity noted, patellar and knee ligaments are intact bilaterally. The left knee is not swollen. There is no bruising noted. Patient has mild tenderness on palpation left hip with no bruising or swelling noted. She ambulates without difficulty. Neurological Exam: Normal Psychological Exam: Normal Skin: Positive: Other - See above notes. Flu Course/Dx - Course Course Of Treatment: Left knee x-ray: Negative as read by myself and Dr. Elias Right knee x-ray: Knee effusion is present as read by myself and Dr. Elias A knee immobilizer was placed on the right knee. The patient's to follow-up with an orthopedist, call tomorrow. - Differential Dx/Diagnosis Provider Diagnosis: Right knee sprain, Contusion of left knee, URI (upper respiratory infection), Left hip pain Discharge ED - Sign-Out/Discharge Documenting (check all that apply): Patient Departure All imaging exams completed and their final reports reviewed: No - Discharge Plan Condition: Fair Disposition: HOME Patient Education Materials: Knee Sprain (DC) Referrals: Gina Galvan MD [Medical Doctor] - Princess Kearney [Primary Care Provider] - Additional Instructions: Elevate as much as possible, keep the knee immobilizer on until you are seen by the orthopedist. Call tomorrow to make an appointment. You can take Tylenol every 4 hours as needed for pain or ibuprofen. May ambulate as pain permits. Over the counter cold medicines as directed - Billing Disposition and Condition Condition: FAIR Disposition: Home
--- NOTE | 2019-12-27 13:55 | UC ---
- Progress Note Progress Note: Final radiologist reading of bilateral knee x-rays from December 26, 2019 come back as no acute process. Provider interpretation the same date was no fracture. They did report an effusion of the right knee. Patient's home following up with orthopedics. As both interpretations did not see any fracture there is no discrepancy. Course/Dx - Diagnoses Provider Diagnoses: Right knee sprain, Contusion of left knee, URI (upper respiratory infection), Left hip pain Discharge ED - Sign-Out/Discharge Documenting (check all that apply): Patient Departure All imaging exams completed and their final reports reviewed: Yes - Discharge Plan Condition: Fair Disposition: HOME Patient Education Materials: Knee Sprain (DC) Referrals: Gina Galvan MD [Medical Doctor] - Princess Kearney [Primary Care Provider] - Additional Instructions: Elevate as much as possible, keep the knee immobilizer on until you are seen by the orthopedist. Call tomorrow to make an appointment. You can take Tylenol every 4 hours as needed for pain or ibuprofen. May ambulate as pain permits. Over the counter cold medicines as directed - Billing Disposition and Condition Condition: FAIR Disposition: Home
== END 2019-12-26 21:55 | disposition home or self-care (01) ==
LOC: UCCORT 19:45
DX: S83.91XA Sprain of unspecified site of right knee, initial encounter (principal); S80.02XA Contusion of left knee, initial encounter; M25.552 Pain in left hip; M25.461 Effusion, right knee; J06.9 Acute upper respiratory infection, unspecified; J45.909 Unspecified asthma, uncomplicated; F17.210 Nicotine dependence, cigarettes, uncomplicated; R11.10 Vomiting, unspecified; Z88.0 Allergy status to penicillin; Z88.1 Allergy status to other antibiotic agents; Z88.8 Allergy status to other drugs, medicaments and biological substances; Z91.018 Allergy to other foods; Z79.899 Other long term (current) drug therapy; V00.121A Fall from non-in-line roller-skates, initial encounter; Y93.39 Activity, other involving climbing, rappelling and jumping off; Y92.9 Unspecified place or not applicable
CPT/HCPCS: 99212; G0463

== ENCOUNTER 2020-02-20 15:58 | Emergency (ER) | payer OTHER ==
--- OUTSIDE RECORDS SUMMARY | 2020-02-20 16:03 | XMS REPORT | Continuity of Care Document ---
:1985 External Reference #:[id number] Author Name Pradeep Mendez M.D. (transmitted by agent of provider Germaine Sun) Address [address] [place] [address] Care Team Providers Name Role Phone Radha Draper M.D. - Family Care Team Information Rehabilitation Medicine Physician Medicine Problems Active Problems Provider Date Asthma without [...] fatigue syndrome Antonio Frias M.D. Onset: 06/15/2018 Injury of shoulder region Margi Mendoza MD Onset: 04/18/2019 Disorder of shoulder Margi Mendoza MD Onset: 04/18/2019 Lesion of ulnar nerve Ellis Hughes MD Onset: 11/14/2019 Late effect of contusion Ellis Hughes MD Onset: 11/14/2019 Social History Type Date Description Comments Sex Unknown Tobacco Use Start: Unknown currently smokes 1/2 Pack Daily Smoking Status Reviewed: 01/01/20 currently smokes 1/2 Pack Daily ETOH Use Denies alcohol use Tobacco Use Start: Unknown Light tobacco smoker (10 or fewer cigarettes/day) Recreational Drug Use Formerly used Marijuana regularly Exercise Type/Frequency Exercises regularly Allergies, Adverse Reactions, Alerts Active Allergies Reaction Severity Comments Date Onion 02/07/2018 Amoxicillin 04/01/2018 Dust 02/07/2018 Lexapro 04/01/2018 Lorazepam 04/01/2018 Clindacin 03/23/2019 Medications Active Medications SIG Qnty Indications Ordering Date Provider Valium take 1 pill by sanna Hughes, 12/27/2019 10mg Tablets mouth 30 minutes prior to mri Ventolin HFA 2 puffs every 4 18units J45.909 Eloise Bennett MD 02/07/2018 108(90Base) hours as needed mcg/Act Aerosol for cough and wheeze Albuterol Sulfate 1 vial every 4 Unknown hours as needed 1.25mg/3ML Nebulizer Gabapentin 1 cap by mouth Unknown 800mg Tablets three times daily Seroquel 2 tabs in the am Unknown 100mg Tablets and 2 tabs in the pm Montelukast Sodium 1 by mouth every Unknown 10mg day Tablets Amitriptyline HCL 2 tabs 1 tab Unknown 100mg twice a day Tablets Immunizations Description No Information Available Vital Signs Date Vital Result Comment 01/01/2020 10:29am Height 68 inches 5'8" Weight 140.00 lb Heart Rate 66 /min Body Temperature 97.9 F O2 % BldC Oximetry 87 % BMI (Body Mass Index) 21.3 kg/m2 11/14/2019 2:29pm Height 68 inches 5'8" Weight 140.00 lb Heart Rate 114 /min BP Systolic 118 mmHg BP Diastolic 60 mmHg Respiratory Rate 20 /min Body Temperature 97.3 F BMI (Body Mass Index) 21.3 kg/m2 Results Description No Information Available Procedures Description No Information Available Medical Devices Description No Information Available Encounters Type Date Location Provider Dx Diagnosis [facility] Contusion of 10:15a at [place] right knee, initial encounter [facility] G[facility] Lesion of ulnar 9:34a at [place] MD nerve, right upper limb S60.221D Contusion of right hand, subsequent encounter Office Visit 11/14/2019 2:00p [facility] Nalini Hughes G56.21 Lesion of at [place] ulnar nerve, right upper limb S60.221D Contusion of right hand, subsequent encounter Assessments Date Code Description Provider 01/01/2020 S80.01xA Contusion of right knee, initial encounter Pradeep Mendez M.D. 11/14/2019 G56.21 Lesion of ulnar nerve, right upper limb Ellis Hughes MD 11/14/2019 S60.221D Contusion of right hand, subsequent encounter Ellis Hughes MD 11/14/2019 G56.21 Lesion of ulnar nerve, right upper limb Ellis Hughes MD 11/14/2019 S60.221D Contusion of right hand, subsequent encounter Ellis Hughes MD Plan of Treatment Future Appointment(s):02/05/2020 2:15 pm - Pradeep Mendez M.D. at [facility] at [id number]/05/2020 11:15 am - Ellis Hughes MD at [facility] at [facility]00/25/2020 10:15 am - Antonio Frias M.D. at [facility]01/01/2020 - Pradeep Mendez M.D.S80.01xA Contusion of right knee, initial encounterFollow up:Follow up: in 5 - 6 weeks Okay to start doing leg lifts and holds for 5 seconds, increasing time as pain allows Okay to start doing bending of the knee to maintain range of motion No jumping or running Use knee brace that bends. Functional Status Description No Information Available Mental Status Description No Information Available Referrals Description No Information Available
--- OUTSIDE RECORDS SUMMARY | 2020-02-20 16:03 | XMS REPORT | Continuity of Care Document ---
:1985 External Reference #:[id number] Author Name HIMANSHU Turner (transmitted by agent of provider Yelitza Sharp) Address [address] [place] [address] Care Team Providers Name Role Phone Radha Draper M.D. - Family Care Team Information [place] [phone] Medicine Problems Active Problems Provider Date Asthma [...] Date Provider Valium take 1 pill by 1tabs Ellis Hughes, 12/27/2019 10mg Tablets mouth 30 minutes [...] Available Vital Signs Date Vital Result Comment 01/31/2020 11:47am BP Systolic 118 mmHg BP Diastolic 60 mmHg Body Temperature 97.7 F 01/01/2020 10:29am Height 68 inches 5'8" Weight 140.00 lb Heart Rate 66 /min Body Temperature 97.9 F O2 % BldC Oximetry 87 % BMI (Body Mass Index) 21.3 kg/m2 Results Description No Information Available Procedures Description No Information Available Medical Devices Description No Information Available Encounters Type Date Location Provider Dx Diagnosis Office Visit 01/31/2020 [facility] HIMANSHU Turner M79.641 Pain in right 11:30a at [place] hand R20.8 Other disturbances of skin sensation S60.221S Contusion of right hand, sequela G56.21 Lesion of ulnar nerve, right upper limb Office Visit 01/01/2020 10:15a [facility] Pradeep Mendez, S80.01xA Contusion of at [place] right knee, initial encounter V00.111A Fall from in-line roller-skates, initial encounter Office Visit 11/14/2019 9:34a [facility] Ellis Hughes, G56.21 Lesion of at [place] ulnar nerve, right upper limb S60.221D Contusion of right hand, subsequent encounter Office Visit 11/14/2019 2:00p [facility] Ellis Hughes, G56.21 Lesion of at [place] ulnar nerve, right upper limb S60.221D Contusion of right hand, subsequent encounter Assessments Date Code Description Provider 01/31/2020 M79.641 Pain in right hand HIMANSHU Turner 01/31/2020 R20.8 Other disturbances of skin sensation HIMANSHU Turner 01/31/2020 S60.221S Contusion of right hand, sequela HIMANSHU Turner 01/31/2020 G56.21 Lesion of ulnar nerve, right upper limb HIMANSHU Turner 01/01/2020 S80.01xA Contusion of right knee, initial encounter Pradeep Mendez M.D. 01/01/2020 V00.111A Fall from in-line roller-skates, initial Pradeep Mendez M.D. encounter 11/14/2019 G56.21 Lesion of ulnar nerve, right upper limb Ellis Hughes MD 11/14/2019 S60.221D Contusion of right hand, subsequent encounter Ellis Hughes MD 11/14/2019 G56.21 Lesion of ulnar nerve, right upper limb Ellis Hughes MD 11/14/2019 S60.221D Contusion of right hand, subsequent encounter Ellis Hughes MD Plan of Treatment 01/31/2020 - Sesar Maurer, PAM79.641 Pain in right handR20.8 Other disturbances of skin [id number] Contusion of right hand, ohpswvcZ07.21 Lesion of ulnar nerve, right upper limbFollow up:Follow up: 4 weeks Functional Status Description No Information Available Mental Status Description No Information Available Referrals Description No Information Available
[2020-02-20 16:11] VITALS: BP 119/71
--- NOTE | 2020-02-20 16:45 | UC ---
Lower Extremity/Ankle HPI - HPI Summary HPI Summary: 35-year-old female presents with complaints of right foot pain. States 1 week ago she kicked a wooden step with the top of her foot. She has been using OTC analgesics, ice, and elevation but pain has persisted. Reports pain across the mid dorsal foot. Worsens with walking and weight bearing. Associated with mild swelling. Denies numbness or tingling. - History of Current Complaint Chief Complaint: UCLowerExtremity Stated Complaint: R FOOT INJ Time Seen by Provider: 02/20/20 16:11 Hx Obtained From: Patient Hx Last Menstrual Period: 1 week ago Pain Intensity: 4 - Allergies/Home Medications Allergies/Adverse Reactions: Allergies Allergy/AdvReac Type Severity Reaction Status Date / Time lorazepam Allergy Intermediate Palpitation Verified 02/20/20 16:11 s cephalexin Allergy Swelling Verified 02/20/20 16:11 Of Face,Lips,& Throat clindamycin Allergy Swelling Verified 02/20/20 16:11 escitalopram [From Lexapro] Allergy Palpitation Verified 02/20/20 16:11 s amoxicillin AdvReac See Comment Verified 02/20/20 16:11 onions Allergy Unknown lightheaded Uncoded 02/20/20 16:11 Home Medications: Home Medications Gabapentin CAP(*) [Neurontin 300 CAP(*)] 400 mg PO TID 01/18/19 [History Confirmed 02/20/20] Montelukast Sodium TAB* [Singulair 10 MG TAB*] 10 mg PO DAILY 03/15/19 [History Confirmed 02/20/20] Quetiapine Fumarate [Seroquel 400 MG] 200 mg PO BID 03/15/19 [History Confirmed 02/20/20] Amitriptyline TAB* [Elavil TAB*] 25 mg PO BEDTIME 04/17/19 [History Confirmed ] Buprenorphine HCl/Naloxone HCl [Buprenorp-Nalox 8-2 mg Sl Film] 1 each SL TID [History Confirmed 02/20/20] Divalproex ER TAB(*) [Depakote ER TAB(*)] 500 mg PO BID 08/18/19 [History Confirmed 02/20/20] Albuterol 2.5MG/3ML (0.083%)* [Ventolin 2.5 MG/3 ML NEB.VANE*] 2.5 mg INH Q4H PRN #30 neb.vane 10/09/19 [Rx Confirmed 02/20/20] Albuterol HFA INHALER* [Ventolin HFA Inhaler*] 1 - 2 puff INH Q4H PRN #1 mdi 07/20 [Rx Confirmed 02/20/20] Cyclobenzaprine TAB* [Flexeril 10 MG TAB*] 10 mg PO TID PRN 12/26/19 [History Confirmed 02/20/20] PMH/Surg Hx/FS Hx/Imm Hx Respiratory History: Asthma Psychological History: Depression, Post Traumatic Stress Disorder Other History Of: Negative For: HIV, Hepatitis B, Hepatitis C - Surgical History Surgical History: Yes Surgery Procedure, Year, and Place: bx heart age 14, ablation. HEART CATH NO STENTS - Family History Known Family History: Positive: Cardiac Disease - Dad and PGF - Social History Occupation: Disabled Lives: Alone Alcohol Use: None Alcohol Amount: RECOVERING ALCOHOLIC Substance Use Type: Marijuana, Prescribed Substance Use Comment - Amount & Last Used: medical THC per patient Smoking Status (MU): Heavy Every Day Tobacco Smoker Type: Cigarettes Amount Used/How Often: 1/2 PPD Length of Time of Smoking/Using Tobacco: started at age 17 Have You Smoked in the Last Year: Yes Household Exposure Type: Cigarettes Review of Systems All Other Systems Reviewed And Are Negative: Yes Constitutional: Positive: Negative Skin: Negative: Bruising Respiratory: Positive: Negative Cardiovascular: Positive: Negative Gastrointestinal: Positive: Negative Genitourinary: Positive: Negative Motor: Negative: Weakness Neurovascular: Negative: Decreased Sensation Musculoskeletal: Positive: Calf Tenderness, Other: - See HPI Is Patient Immunocompromised?: No Physical Exam - Summary Physical Exam Summary: GENERAL APPEARANCE: Well developed, well nourished, alert and cooperative, and appears to be in no acute distress. CARDIAC: Normal S1 and S2. No S3, S4 or murmurs. Rhythm is regular. There is no peripheral edema, cyanosis or pallor. Extremities are warm and well perfused. Capillary refill is less than 2 seconds. Peripheral pulses intact. LUNGS: Clear to auscultation without rales, rhonchi, wheezing or diminished breath sounds. ABDOMEN: Positive bowel sounds. Soft, nondistended, nontender. No guarding or rebound. No masses or hepatosplenomegally. MUSKULOSKELETAL: Normal muscular development. Limping gait. EXTREMITIES: Mild tenderness to the dorsal right foot primarily over the mid 2nd , 3rd, and 4th metatarsals. No gross deformity, ecchymosis, or edema. Full ROM to right ankle. Circulation and sensation intact. SKIN: Skin normal color, texture and turgor. Triage Information Reviewed: Yes Vital Signs: Initial Vital Signs Temp 98.3 F 02/20/20 16:04 Pulse 113 02/20/20 16:04 Resp 16 02/20/20 16:04 BP 119/71 02/20/20 16:04 Pulse Ox 96 02/20/20 16:04 Vital Signs Reviewed: Yes Diagnostics - Radiology No standard instances Radiology Interpretation Completed By: Radiologist Summary of Radiographic Findings: Order Information: FOOT RIGHT 3+ VWS. INDICATION: Trauma. COMPARISON: August 22, 2019 right foot radiograph TECHNIQUE: 3 views of the right foot were obtained. FINDINGS: There is mild dorsal midfoot soft tissue swelling. The bone mineralization is within normal limits. Nondisplaced lucency in the base of the third metatarsal is unchanged from comparison imaging. Anatomic alignment is maintained. The joint spaces are preserved. IMPRESSION: DORSAL MIDFOOT SOFT TISSUE SWELLING. NO FRACTURE IDENTIFIED. Lower Extremity Course/Dx - Course Course Of Treatment: 35-year-old female presents with complaints of right foot pain. States 1 week ago she kicked a wooden step with the top of her foot. She has been using OTC analgesics, ice, and elevation but pain has persisted. Reports pain across the mid dorsal foot. Worsens with walking and weight bearing. Associated with mild swelling. Denies numbness or tingling. Afebrile. Mildly tachycardic otherwise vital signs stable. Patient had mild tenderness to the dorsal right foot primarily over the mid 2nd, 3rd, and 4th metatarsals with no gross deformity, ecchymosis, or edema, full ROM to right ankle, and intact circulation and sensation. Remainder of exam was unremarkable. X-ray showed some mild soft tissue swelling but no acute fracture. Reviewed results with the patient. Recommending conservative treatment for a right foot contusion including over- the-counter analgesics and RICE. Patient was placed in a CAM boot by the RN. She is to follow-up with orthopedic surgery in 7 days if symptoms are not improving. Anticipatory guidance and warning symptoms reviewed with the patient verbalizes understanding and agrees with plan of care. - Differential Dx/Diagnosis Differential Diagnosis/HQI/PQRI: Contusion, Fracture (Closed), Sprain Provider Diagnosis: Contusion of right foot Discharge ED - Sign-Out/Discharge Documenting (check all that apply): Patient Departure All imaging exams completed and their final reports reviewed: Yes - Discharge Plan Condition: Stable Disposition: HOME Patient Education Materials: Foot Contusion (ED) Referrals: Princess Kearney [Primary Care Provider] - Cole Maharaj MD [Medical Doctor] - Additional Instructions: The x-ray performed in the clinic today showed no evidence of a fracture. Rest the foot as much as possible. Use the walking boot that was provided to you in the clinic until you are pain free. You may remove to sleep and shower but should wear at all other times. Apply ice to the affected area for 15-20 minutes at least 4 times a day to help with the pain and swelling. Elevate the foot to help reduce swelling. Take acetaminophen (Tylenol) or ibuprofen (Advil, Motrin) according to directions as needed for pain. Follow up with orthopedic surgery in 7 days if symptoms do not improve. Seek immediate medical attention if you have severe pain not managed with pain medication, you are unable to walk or bear any weight, develop persistent numbness or tingling in the foot or toes, or have any worsening of symptoms. - Billing Disposition and Condition Condition: STABLE Disposition: Home - Attestation Statements Provider Attestation: This patient was not seen by me. I was available for consult. Chart reviewed. LYRIC
== END 2020-02-20 17:30 | disposition home or self-care (01) ==
LOC: UCCORT 15:58
DX: S90.31XA Contusion of right foot, initial encounter (principal); W22.09XA Striking against other stationary object, initial encounter; Y92.9 Unspecified place or not applicable; J45.909 Unspecified asthma, uncomplicated; F32.9 Major depressive disorder, single episode, unspecified; Z79.899 Other long term (current) drug therapy; Z88.1 Allergy status to other antibiotic agents; Z88.0 Allergy status to penicillin; Z88.8 Allergy status to other drugs, medicaments and biological substances; Z91.018 Allergy to other foods; F17.210 Nicotine dependence, cigarettes, uncomplicated
CPT/HCPCS: 99211; G0463